=== PATIENT | female | born 1980 | race Caucasian/White ===

== ENCOUNTER 2024-07-31 11:46 | Outpatient (CLI) | payer BC, SELFPAY ==
--- NOTE | ~2024-07-31 | XR_ITS ---
Supine and upright views of the abdomen Clinical history: Renal stones Findings: Bowel gas pattern is nonspecific. No evidence for obstruction or free air. Probable left re nal stones present measuring up to 7 mm. Probable right renal stones measuring up to [address] ructures are intact. Impression: Bilateral nephrolithiasis, as detailed above. Reviewed, dictated and finalized at location . Impression: Bilateral nephrolithiasis, as detailed above.
== END 2024-07-31 11:47 | disposition home or self-care (01) ==
LOC: ANHIMG 11:55
PROVIDERS: Visit Provider Physician Assistant
DX: N20.0 Calculus of kidney (principal)
CPT/HCPCS: 74018

== ENCOUNTER 2024-09-27 13:34 | Outpatient (CLI) | payer BC, SELFPAY ==
[2024-09-27 14:40] LABS: Prothrombin Time 13.9 Seconds (11.1-14.7)
== END 2024-09-27 13:35 | disposition home or self-care (01) ==
PROVIDERS: Visit Provider Urology
DX: N20.0 Calculus of kidney (principal); Z01.818 Encounter for other preprocedural examination
CPT/HCPCS: 36415; 85610; 85730; 87077; 87086; 87186

== ENCOUNTER 2024-10-06 00:26 | Day surgery (SDC) | payer BC, SELFPAY ==
--- NOTE | 2024-09-26 13:20 | PC.NURSE ---
Report to the Outpatient Waiting Room, entrance under the green pavilion located off [facility], at time _0630_ on date _[id number]_. Planned Procedure Time: _0830_.? Time changes happen often and if your time is changed the preop area will call you the afternoon before. - You and your visitor will be asked to self-screen and do not enter if you have any COVID symptoms. Please call surgeon if you need to reschedule. - A mask is optional within the hospital at this time. Patients may have clear liquids (water, carbonated beverages, clear teas, apple juice) until 3 hours prior to surgery with a maximum of 20 ounces. - No food from midnight until time of surgery and no smoking. This includes no chewing gum, candy or mints. Take only the following medications with a SIP of water on the morning of surgery: ___None DO NOT STOP ANY OF YOUR OTHER PRESCRIPTION MEDICATIONS PRIOR TO SURGERY EXCEPT THE FOLLOWING Medications to discontinue per physician Vitamins and supplements Date to take last ozva____[id number] Please no make-up, nail chadian, hairspray, perfume, deodorant, or body powder the day of surgery.? No jewelry (including any body piercings) or valuables the day of surgery, leave them at home.? Please take a shower or bath the night before, or the morning of, surgery with an antibacterial soap.? Wear comfortable, loose fitting clothing.? - Jewelry must be removed prior to entering the operating room.? Rings and piercings that are not removed may be cut off. - The hospital will not accept responsibility for valuables.? - Please leave all valuables, including medications, at home the day of surgery. If you are going home after surgery, a licensed school bus driver must drive you home.? - NO public transportation without another adult if you receive anesthesia. - We recommend that an adult stay with you for 24 hours following discharge. - We also recommend that you do not drive, make important decision, drink alcoholic beverages, or take any drugs that were not prescribed by your health care provider for at least 24 hours after your discharge time. Follow any additional instructions given to you from your surgeon. Telephone instructions given to _Ibeth__and asked if any additional questions and then verbalized understanding. Patient advised to call surgeon office or pre surgery nurse liaison [phone] if any additional questions.
--- NOTE | 2024-09-28 16:54 | PM.HPGS ---
History of Present Illness History of Present Illness Consent: Risks, benefits, and alternatives have been discussed and questions answered. Patient agrees to proceed with procedure. Chief complaint: Left Renal Stone Narrative: Ibeth Mera is a 43 year old female who recently saw our nurse practitioner, Dorcas Roche, for recurrent urinary tract infection. She also has a history of recurrent urolithiasis and has had a metabolic evaluation by a drawing in machine tender helper in the past. During the course of evaluation renal ultrasound suggested bilateral stones. KUB showed a 7 mm stone in her left kidney in 3 mm stone in her right kidney. After discussion of options she is elected for right ESWL. After discussion he elects for left ESWL. Patient is aware of the risks including, but not limited to, adverse cardiopulmonary events, need for additional procedures, hematuria perinephric hematoma. Review of Systems Review of Systems: All systems reviewed & are unremarkable except as noted in HPI and below PMFSH Social History Social History Years smoked: 18 Smoking status: Former smoker Tobacco type: cigarettes Smoking end date: 09/26/18 Substance use type: marijuana Other substance usage details: THC inessa Living arrangements: with family Spiritual care concerns: No Meds Home Medications and Allergies Home Medications ?Medication ?Instructions ?Recorded ?Confirmed ?Type cholecalciferol (vitamin D3) 50 4,000 unit PO Q48H 09/26/24 09/26/24 History mcg (2,000 unit) capsule cyanocobalamin (vitamin B-12) 1,000 mcg PO DAILY 09/26/24 09/26/24 History 1,000 mcg capsule magnesium citrate 5 ml PO DAILY 09/26/24 09/26/24 History mushroom complex 1 cap PO DAILY 09/26/24 09/26/24 History omega-3 fatty acids 1,500 mg PO DAILY 09/26/24 09/26/24 History Allergies Allergy/AdvReac Type Severity Reaction Status Date / Time neomycin Allergy Severe Rash Verified 09/26/24 13:04 cortisone Allergy Mild Other Verified 09/26/24 13:04 Exam Const: General: no acute distress Resp: Effort & Inspection: normal respiratory effort GI: Inspection: non-distended GI Palp: No abdominal tenderness and No Guarding due to palpation present (GI) Auscultation: normal bowel sounds Assessment and Plan Assessment and plan (1) Bilateral kidney stones: Code(s): N20.0 - Calculus of kidney Status: Acute Assessment and Plan: Left ESWL
[2024-10-06] VITALS (9 sets, daily range): BP systolic 92–118; BP diastolic 47–79; PULSE 61–75; RESP 12–18; TEMP 36.4–36.8; O2SAT 98–100; BMI 20.7
--- NOTE | ~2024-10-06 | XR_ITS ---
EXAMINATION: XR abdomen/kub 1V DATE: 10/06/2024 06:57 INDICATION: Left kidney stone. TECHNIQUE: A supine view of the abdomen on 2 radiographs was obtained. COMPARISON: Abdomen radiographs 07/31/2024 FINDINGS: There are no dilated loops of bowel. There is a moderate volume of stool in the colon. Ther e are multiple stones in right kidney measuring up to 4 mm. There are multiple stones in left kidney measuring up to 9 mm. IMPRESSION: 1. Bilateral kidney stones. Reviewed, dictated and finalized at location A. ER IMPRESSION: 1. Bilateral kidney stones.
--- NOTE | 2024-10-06 06:23 | WPDHPUPDATE1 ---
History and Physical Update Update Date/Time: 10/06/24 06:23 History and Physical has been reviewed, including an updated exam of the patient. There are NO changes in the patient's condition. Risks, benefits, and alternatives have been discussed and questions answered. Patient agrees to proceed with procedure.
[2024-10-06] MEDS: LACTATED RINGERS 1,000 ML 30 ML IV CONT (07:05)
--- NOTE | 2024-10-06 08:10 | P.PNAN_ITS ---
Anes - Initial Pre Proc Eval Procedure: Operation Date: 10/06/24 08:30 Proposed Procedures p Left Extracorporeal Shock Wave Lithotripsy - Alfred Ayala MD s Cystoscopy with Possible Left Stent Placement - Alfred Ayala MD Date/Time: 10/06/24 08:10 Surgeon: Alfred Ayala MD Pre Op Diagnosis: Left Renal Stone Patient Data Age: 43 Gender: F Height: 1.65 m Weight: 56.4 kg Last Vital Signs Temp 98.2 F 10/06/24 06:55 Pulse 61 10/06/24 06:55 Resp 18 10/06/24 06:55 BP 118/73 10/06/24 06:55 Pulse Ox 100 10/06/24 06:55 O2 Del Method Room Air 10/06/24 06:55 Allergies Allergy/AdvReac Type Severity Reaction Status Date / Time neomycin Allergy Severe Rash Verified 10/06/24 07:21 cortisone Allergy Mild Other Verified 10/06/24 07:21 Home Medications ?Medication ?Instructions ?Recorded ?Confirmed ?Type cholecalciferol (vitamin D3) 50 4,000 unit PO Q48H 09/26/24 10/06/24 History mcg (2,000 unit) capsule cyanocobalamin (vitamin B-12) 1,000 mcg PO DAILY 09/26/24 10/06/24 History 1,000 mcg capsule magnesium citrate 5 ml PO DAILY 09/26/24 10/06/24 History mushroom complex 1 cap PO DAILY 09/26/24 10/06/24 History omega-3 fatty acids 1,500 mg PO DAILY 09/26/24 10/06/24 History Patient hx anesthesia problems: none Family hx anesthesia problems: none Results Review: All pre-operative results and documents have been reviewed as part of the pre- operative evaluation. [facility] Social History Social History Years smoked: 18 Smoking status: Former smoker Tobacco type: cigarettes Smoking end date: 09/26/18 Substance use type: marijuana Other substance usage details: THC gummies Living arrangements: with family Spiritual care concerns: No Anes - Eval Final PreProcedure Day of Procedure 10/06/24 08:10 Patient weight: normal Heart: regular rate and rhythm Lungs: clear to auscultation Airway: Mallampati scale Neurological: alert and oriented Last oral intake: >/= 8 hours ASA classification: II Emergent: no Anesthetic plan: proceed Anesthesia type and monitoring: general LMA and standard monitoring Results Review: All pre-operative results and documents have been reviewed as part of the pre- operative evaluation. Pt smokes marijuana several times/week, none this am. Informed Consent: The patient's anesthetic plan and its attendant risks and benefits were discussed with the patient/family/POA. Questions were solicited and answers provided to the satisfaction of the patient/family/POA.
[2024-10-06] MEDS: ceFAZolin 2 GM/D5W 50 ML 2 GM/50 ML BAG IVPB (08:22)
--- NOTE | 2024-10-06 08:46 | W.PM.PROC2 ---
Procedure Note - Detailed Date of Procedure 10/06/24 Pre-op Diagnosis Left Renal Stone Post-op Diagnosis Same Procedure Performed Left ESWL Surgeon Alfred Ayala MD Anesthesia General Description of Procedure The patient was brought to the operative suite where she was placed in the supine position on the Dornier lithotripsy table. The focal point of the lithotripter was placed at a 9mm left lower pole calculus. A total of 2500 shocks were delivered at a power setting of 4. There appeared to be good fragmentation of the stone. The patient tolerated the procedure well and was taken to the recovery room in good condition. Drains No Packing No Pathology None sent Complications No immediate complications Condition Stable
[2024-10-06] MEDS: fentaNYL CITRATE INJ (*CRX) 100 MCG/2 ML VIAL 25 MCG IV PUSH ×4 (09:18→09:28)
[2024-10-06] MEDS: oxyCODONE HCL (*CRX) 5 MG TAB IR PO (10:01)
--- OUTSIDE RECORDS SUMMARY | 2024-10-13 01:30 | XMS_ITS | Encounter Summary ---
Author Organization [facility] Address [address] [place] [id number] Phone Care Team Providers Care Pomologist Name Role Phone Melissa Melgar Primary Care Provider [phone] Encounter Details Date Type Department Care Team (Latest Contact Info) Description 09/22/2023 11:20 AM LIVESTOCK NUTRITIONIST Office Visit [facility] [address] [place], [place] [id number] Reynaldo Verduzco PA [address] [place] [address] Nephrolithiasis (Primary Dx); Hypercalciuria Social History Tobacco Use Types Packs/Day Years Used Date Smoking Tobacco: Never Assessed Sex and Gender Information Value Date Recorded Sex Assigned at Not on file Gender Identity Not on file Sexual Orientation Not on file documented as of this encounter Last Filed Vital Signs Vital Sign Reading Time Taken Comments Blood Pressure 110/60 09/22/2023 11:37 AM LIVESTOCK NUTRITIONIST Pulse - - Temperature - - Respiratory Rate - - Oxygen Saturation - - Inhaled Oxygen Concentration - - Weight 54.9 kg (121 lb) 09/22/2023 11:37 AM LIVESTOCK NUTRITIONIST Height - - Body Mass Index - - documented in this encounter Patient Instructions * Patient Instructions* ITA Dyson - 09/22/2023 11:20 AM LIVESTOCK NUTRITIONIST -Try and increase hydration to around 2.5-3.0L. You can try measuring your fluid intake to get an accurate assessment using a water bottle with measurements on it -Two servings of dairy (around 1000mg of calcium) daily. Avoid calcium supplements, Vitamin C supplements, and multivitamins -Lower the protein intake - goal protein is around 50g daily based on your weight -Low sodium diet - goal is around <2000mg total sodium daily -Can continue citrate therapy as well as lemonade, lemon juice with fluids to help add citrate (stone inhibitor) to your urine -Can consider thiazide medication for stone prevention in the future if blood pressure allows -Oxalate looks okay in your urine right now. Try and limit oxalate intake in the future if urine oxalate rises. documented in this encounter Progress Notes * ITA Dyson - 09/22/2023 11:20 AM CST Images from the original note were not included. Nephrology Ibeth Mear - 1980 Primary - MELISSA MELGAR History and interval events: Ibeth Mera presents for workup and management of nephrolithiasis. The patient follows with as their Urologist. Stone composition is unknown but presumably calcium based. She thinks her first kidney stone was probably around 2010. After that, her stone disease was quiescent until 2021 in May and then another in October 2022 that she passed. Previously did not drink much water in years prior but is working to increase water intake now. Hasbeen having recurrent UTI, about three in the last 6 or so months. Has been adding citrate in her diet and some sort of lemon products every day. Eats a high sodium diet, adds salt to her foods and eats salty foods. Eats yogurt often, cheese as well. Does not drink a lot of milk. No calcium supplements. Takes Vitamin D3 2000 units each morning. No MVI. No Vitamin C supplements. Eats a high oxalate diet as well. Lots of dark leafy greens, spinach, broccoli, nuts. Eats a high protein diet, a lot of red meat, chicken, pork, shrimp. 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 No history of gout. No chronic diarrhea/Crohn's/UC. No history of bowel resections/gastric bypass/weight loss surgery Past History: Medical Nephrolithiasis Recurrent UTI Surgical None Family Father with kidney stones Social Tobacco: vapes Alcohol: 6 years sober Recreational drugs: none Review of Systems Medications: Current Outpatient Medications on File Prior to Visit Medication Sig Dispense Refill buPROPion XL (WELLBUTRIN XL) 150 MG 24 hr tablet Take 150 mg by mouth 1 (one) time each day cholecalciferol (VITAMIN D-3) 25 MCG (1000 UT) tablet Take 2,000 Units by mouth in the morning. Cyanocobalamin ER 1000 MCG tablet controlled-release Take 1,000 mcg by mouth in the morning. Magnesium Citrate 125 MG capsule Take 500 mg by mouth 1 (one) time each day [place] 3 1000 MG capsule Take 1 capsule by mouth 1 (one) time each day vilazodone (VIIBRYD) 10 mg tablet tablet Take 10 mg by mouth 1 (one) time each day (Patient not taking: Reported on 09/22/2023) No current facility-administered medications on file prior to visit. Vital Signs: BP 110/60 Physical Exam: General No apparent distress H&N No JVD noted Eyes Equal, without icterus Chest No SOB, normal resp effort Heart Reg Abdomen Does not appear distended Extremities No LE edema noted Skin No visible rash on exposed skin Neuro No obvious new deficits. No tremor Mental status Alert and oriented Labs: SCr 21/0.7 eGFR 111 Na 140 K 4.2 CO2 25 Ca 9.0 PO4 3.3 Mg 2.0 Alb 3.9 iPTH 47 Vit D (25-OH) Hb 12.3 Tsat Ferritin urinalysis UP:C UACR Uric acid 3.2 Imaging: XR KUB 08/10/23: There are calcifications projecting over the right renal shadow, at least 4. The largest measures 3 mm. Larger calcifications project over the left kidney measuring up to 5 mm. No calcifications over the paths of the ureters. Impression and Recommendations: Ibeth presents for workup and management of nephrolithiasis. Stone composition is not definitively known but based on XR KUB and Litholink risk factors, presumably calcium based. 1.) Nephrolithiasis: Litholink notable for inadequate urine volume, hypercalciuria, hyperuricosuria, slightly elevated urine pH, elevated urine sodium, and high protein diet. Metabolic workup normal with unremarkable PTH, uric acid, and CMP. The following recommendations were made: Fluid intake around 90-100 ounces daily Two servings of dairy (around 1000mg calcium daily) with avoiding MVI Moderation of oxalate in her diet (oxalate currently looks okay but does eat a high oxalate diet). Avoid Vitamin C supplements. Reduce protein/red meat intake, goal ~0.8g/kg/day. This should help lower urine calcium, urine uricacid Low sodium diet <2000mg daily Lemonade, lemon juice (up to 4 ounces daily) to help urine citrate - currently adequate Discussed possible consideration of thiazide to help with urine calcium, but currently has modifiable lifestyle options that we will try first. May not be able to tolerate thiazide as BP already on lower side Consider allopurinol for hyperuricosuria as this can also reduce risk of calcium based stones Continued follow-up with Urology for stone surveillance, procedural management Follow-up in 4 months with repeat Litholink. Update 25-OH Vitamin D level ITA Dyson [facility]: MD Maria C Flores PA Graeme Mindel, MD Justin Krafft, PA Derek Larson, MD FASN Rose Mattli, NP Rohan Devanpalli, MD Candace Shirley, NP [address] [place], [place] [id number] [phone] Office [phone] - Fax documented in this encounter Plan of Treatment Upcoming Encounters Date Type Department Care Team (Late st Contact Info) Description 05/09/2025 11:40 AM CDT Office Visit [facility] [address] [place] [address] Marcell Adams MD [address] [place] [address] documented as of this encounter Visit Diagnoses Diagnosis Nephrolithiasis- Primary Hypercalciuria documented in this encounter Care Teams Pomologist Relationship Specialty Start Date End Date SethMelissa [address] [place] [address] PCP - General 09/22/23 documented as of this encounter
--- OUTSIDE RECORDS SUMMARY | 2024-10-13 01:30 | XMS_ITS | Clinical Summary ---
Author Organization [facility] Address [address] [place] [address] Phone Care Team Providers Care Quality Control Microbiology Supervisor Name Role Phone KIERSTEN INTERNAL SPECIALIST-C, DEA Ayon Unavailable [phone] JEREMY ANTONIO EDILIA BC, PATTI Corrigan Unavailable [phone] MELISSA MELGAR MD Primary Care Provider [phone] LIA SMITH LCSW Unavailable [phone] Reason for Visit and Chief Complaint referred by, visit for: Follow up visit 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 INTERNAL SPECIALIST-C Active Last Documented On 06/24/2022 9:39AM ; [facility] Note: diagnosed by Psychiatrist Joint Pain Fingers of Right Hand 05/19/2022 RADHA Aguilera Active Last Documented On 2 11:24AM ; [facility] Nephrolithiasis 05/14/2021 DEA BURCH F SWIMMING POOL INSTALLER-C Active Last Documented On 1 11:08AM ; [facility] Major Depression Recurrent Mild 05/14/2021 CESARIO BURCH INTERNAL SPECIALIST-C Active Last Documented On 1 10:56AM ; [facility] Vitamin D Deficiency 05/14/2021 DEA CAMPBELL ERS INTERNAL SPECIALIST-C Active Last Documented On 1 11:16AM ; [facility] Plan of Treatment Client will continue to monitor thoughts, feelings, and triggers, utilizing coping skills and resources as needed. - Last Documented On 09/07/2023 11:35AM ; [facility] Assessments Includes: Assessments from this encounter Findings - Depression with anxiety - Last Documented On 09/07/2023 11:35AM ; [facility] Medical Equipment - Implanted Devices Includes: Current Devices No Medical Equipment Recorded Medications Includes: Medications discussed during this encounter and other current Medications Current Medications (continue as prescribed) Vilazodone HCl 10 MG Oral Tablet 12/02/2023 Provider: DEA MELO Diagnosis: Major depressive disorder, recurrent, mild TAKE 1 TABLET BY MOUTH DAILY Last Documented On 4 11:39AM By Dea MELO ; [facility] Fountain 3 1000 MG Oral Capsule 09/06/2023 Provider: Diagnosis: 2 dailyOTC Last Documented On 3 9:21AM By Dea MELO ; [facility] Vitamin B12 1000 MCG Oral Tablet Extended Release 08/12 Provider: Diagnosis: OTC Last Documented On 3 9:22AM By Dea MELO ; [facility] Magnesium Citrate 125 MG Oral Capsule 09/06/2023 Pro vider: Diagnosis: takes 500mg dailyOTC Last Documented On 3 9:22AM By Dea MELO ; [facility] Vitamin D 25 MCG (1000 UT) Oral Tablet 06/24/2022 Pr ovider: Diagnosis: Last Documented On 06/24/2022 9:07AM By Carmela PHILLIPS ; [facility] Past Medications on file Oseltamivir Phosphate 75 MG Oral Capsule 10/14/2023 - 10/19/2023 Provider: NIVIA EPPS DNP Diagnosis: Acute upper respiratory infection, unspecified 1 CAPSULE TWO TIMES A DAY Last Documented On 4 11:15AM By Nivia Epps DNP ; [facility] Benzonatate 200 MG Oral Capsule 10/14/2023 - 10/21/2023 Provider: NIVIA DOHERTY DNP Diagnosis: Acute cough One tablet three times a day PRN for cough Last Documented On 4 11:15AM By Nivia Epps DNP ; [facility] Medications Administered Includes: Administered Medications from this encounter No Administered Medications Recorded Results Includes: Results discussed during this encounter No Results Recorded For Specified Dates History of Present Illness Includes: History of Present Illness from this encounter AMINA BARRIOS is a 42 year old female. - Primary Care Provider: Social History No Social History Recorded - Smoking Status Unknown Medical History Includes: Medical History addressed during this encounter No Medical History Recorded Family History Includes: Family History addressed during this encounter Description Last Updated Family history unchanged 05/22/2022 Last Documented On 3 10:46AM ; [facility] Maternal history of diabetes mellitus Last Documented On 3 10:46AM ; [facility] Paternal history of cancer 06/10/2021 Last Documented On 3 10:46AM ; [facility] Paternal history of depression 1 Last Documented On 3 10:46AM ; [facility] Maternal history of Blood Transfusions 0 06/10/2021 Last Documented On 3 10:46AM ; [facility] Family history reviewed - unchanged sinc e last visit 05/14/2021 Last Documented On 3 10:46AM ; [facility] Paternal history of drug dependence 01/2021 Last Documented On 3 10:46AM ; [facility] Review of Systems Includes: Review of Systems from this encounter No Review of Systems Recorded Mental Status Includes: Mental Status from this encounter Description [Other specified anxiety dis orders] depression with anxiety Functional Status Includes: Functional Status from this encounter No Functional Status Recorded Physical Exam Includes: Physical Exam from this encounter No Physical Exam Recorded Allergies Includes: Active Allergies Substance Type Reaction Onset Date Resolved Date Statu s Neomycin Allergy 05/14/2021 Active Last Documented On 4 10:54AM ; [facility] Corticosteroids Allergy 05/14/2021 Act roman Last Documented On 4 10:54AM ; [facility] Encounters Encounter Provider Location Date Check-In Time Check-Out Time Diagnosis [facility] 09/07/20 23 10:45AM 11:36AM Depression with Anxiety Insurance Includes: Active Insurance Policies Plan Name Member ID Group # Subscriber Relationship Effect roman Dates 1 - [facility] [id number] IBETH BARRIOS Self 04/10/2021 - Unknown Clinical Notes Includes: Clinical Notes from this encounter * Progress note Date Encounter Last Documented by 09/07/[address] [facility] Last documented on 09/07/2023; 11:35 AM, LIA SMITH LCSW; [facility] Active Problems & Conditions - Joint Pain Fingers of Right Hand - Major Depression Recurrent Mild - Nephrolithiasis - Obsessive Compulsive Personality Disorder - Vitamin D Deficiency Reason For Visit Visit for: Follow up visit. Referred by. Assessment - Depression with anxiety History of Present Illness IBETH BARRIOS is a 42 year old female. - Primary Care Provider: Current Medication - Magnesium Citrate 125 MG Oral Capsule takes 500mg dailyOTC, 0 days, 0 refills - Fountain 3 1000 MG Oral Capsule 2 dailyOTC, 0 days, 0 refills - Vilazodone HCl 10 MG Oral Tablet One tablet daily, 30 days, 2 refills - Vitamin B12 1000 MCG Oral Tablet Extended Release One tablet daily OTC, 0 days, 0 refills - Vitamin D 25 MCG (1000 UT) Oral Tablet One tablet daily 0 days, 0 refills Family History Family history reviewed - unchanged since last visit Family history unchanged Paternal: Drug dependence Depression Cancer Maternal: Blood Transfusions Diabetes mellitus Care Team - DIAMOND WASSERMAN-Ale - Primary Care - LIA SMITH LCSW - Counselor - PACO FONTAINENP - Obstetrics & Gynecology User Defined 31 Clinician provided active empathic listening, validation, clarification, and emotional support. User Defined 32 Ibeth shared spending Thanksgiving with herself, making breakfast and soup, watching the [place] Parade and football. It was nice to be home, not having any obligations. She became tearful when sharing she became emotional when watching the parade, due to missing her mom, who loved the parade. She indicated feeling very alone regarding not having any family she is really close with and can rely on. Ibeth shared waking up sad this morning and then noticing getting angry about little things throughout the morning. She is worried about her dog, Ronald, and feels anxious when he follows after her, shivering. I just wish he'd go lay on his blanket and get warm. Then her cat kept getting in the plant and making messes she had to clean up. She has been doing with fleas all summer from the neighbor's dog. She has been doing yoga every day, going to a chiropractor twice a week, exercising, cooking healthy foods at home, going to doctors' appointments she put off since meeting Annabelle. She is getting her kidneys check. On the other side of the relationship with Annabelle, Ibeth recognizes she tends to lose herself in relationships. She focuses on what they need in order to not abandon her. She feels uncomfortable when other people cry, and she feels uncomfortable expressing how she feels about people. I feel very closed off with people. I'm afraid of connection, in general. She shared having plans to go to a concert and her boss telling her she would have loved to go to that with her. This made her feel uncomfortable. User Defined 33 Ibeth was able to share thoughts, feelings and experiences while receiving unconditional positive regard, validation and emotional support from typewriter ribbon winder. Ibeth and discussed ways that she was expected to be the adult/ with her mother, growing up, and how that unfairness is triggered when people show emotions or want to connect with her on a personal basis. and Ibeth explored the idea of paying attention to how she feels around her boss and decide if she's someone with whom she feels would be worth being friends. Ibeth and talked about doing inner child work, connecting with the little girl inside, so she does not feel alone, and allowing herself to be vulnerable. Plan Client will continue to monitor thoughts, feelings, and triggers, utilizing coping skills and resources as needed. Bottom of Document Start time: 10:46 a.m. End time: 11:33 a.m. Next Appt for: 09/27 at 10:45
--- OUTSIDE RECORDS SUMMARY | 2024-10-13 01:30 | XMS_ITS | Clinical Summary ---
Author Organization [facility] Address [address] [place] [id number] Phone Care Team Providers Care Senior Web Designer Name Role Phone Erick Ann Primary Care Provider [phone] Allergies Active Allergy Reactions Criticality Noted Date Comments Corticosteroids Unknown 06/07/2023 Neomycin Unknown 05/14/2021 Medications Medication Sig Dispensed Refills Start Date End Date Status cholecalciferol (VITAMIN D-3) 25 MCG (1000 UT) tablet Take 2,000 Units by mouth in the morning. 06/24/2022 Active Cyanocobalamin ER 1000 MCG tablet controlled-release Take 1,000 mcg by mouth in the morning. 09/06/2023 Active Magnesium Citrate 125 MG capsule Take 500 mg by mouth 1 (one) time each day 09/06/2023 Active [place] 3 1000 MG capsule Take 1 capsule by mouth 1 (one) time each day 09/06/2023 Active vilazodone (VIIBRYD) 10 mg tablet tablet Take 10 mg by mouth 1 (one) time each day 09/06/2023 Active allopurinol (ZYLOPRIM) 100 MG tablet Take 1 tablet (100 mg total) by mouth 1 (one) time each day 30 tablet 11 05/09/2024 05/09/2025 Active Active Problems Problem Noted Date Diagnosed Date Nephrolithiasis 05/09/2024 Immunizations Name Administration Dates Next Due Pfizer Sars-cov-2 Vaccination 04/23/2021 Social History Tobacco Use Types Packs/Day Years Used Date Smoking Tobacco: Never Assessed Sex and Gender Information Value Date Recorded Sex Assigned at Not on file Gender Identity Not on file Sexual Orientation Not on file Last Filed Vital Signs Vital Sign Reading Time Taken Comments Blood Pressure 106/62 05/09/2024 12:57 PM CDT Pulse 69 05/09/2024 12:57 PM CDT Temperature - - Respiratory Rate - - Oxygen Saturation - - Inhaled Oxygen Concentration - - Weight 55.3 kg (122 lb) 05/09/2024 12:57 PM CDT Height 170.2 cm (5' 7 ) 05/09/2024 12:57 PM CDT Body Mass Index 19.11 05/09/2024 12:57 PM CDT Plan of Treatment Upcoming Encounters Date Type Department Care Team (Late st Contact Info) Description 05/09/2025 11:40 AM CDT Office Visit [facility] [address] [place] [address] Marcell Adams MD [address] [place] [address] Health Maintenance Due Date Last Done Comments Pneumococcal PPSV23 Highest Risk Adult (1 of 3 - PCV13) 2000 COVID-19 Vaccine (2 - 2022- season) 2024 Influenza Vaccine (#1) 2024 Care Teams Senior Web Designer Relationship Specialty Start Date End Date Erick Ann [address] [place] [address] PCP - General 09/22/23
--- OUTSIDE RECORDS SUMMARY | 2024-10-13 01:30 | XMS_ITS | Clinical Summary ---
Author Organization [facility] Address [address] [address] Phone Care Team Providers Care Court Monitor Name Role Phone KIERSTEN RESEARCH FOOD TECHNOLOGIST-C, DEA Ayon Unavailable [phone] JEREMY ANTONIO WHEDILIA BC, PATTI Corrigan Unavailable [phone] MELISSA MELGAR MD Primary Care Provider [phone] LIA SMITH LCSW Unavailable [phone] Reason for Visit and Chief Complaint The Chief Complaint is: cough, tickle in throat, head pressure, chest/lungs burning. sx started last night. 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 RESEARCH FOOD TECHNOLOGIST-C Active Last Documented On 06/24/2022 9:39AM ; [facility] Note: diagnosed by Psychiatrist Joint Pain Fingers of Right Hand 05/19/2022 RADHA Aguilera Active Last Documented On 2 11:24AM ; [facility] Nephrolithiasis 05/14/2021 DEA BURCH F MONUMENT STONECUTTER-C Active Last Documented On 1 11:08AM ; [facility] Major Depression Recurrent Mild 05/14/2021 CESARIO BURCH RESEARCH FOOD TECHNOLOGIST-C Active Last Documented On 1 10:56AM ; [facility] Vitamin D Deficiency 05/14/2021 DEA A CHILD ERS RESEARCH FOOD TECHNOLOGIST-C Active Last Documented On 1 11:16AM ; [facility] Plan of Treatment - Return to the clinic if condition worsens or new symptoms arise - Last Documented On 10/14/2023 11:08AM ; [facility] - Patient will call for appointment as needed - Last Documented On 10/14/2023 11:08AM ; [facility] Instructions to patient Intervention and counseling on cessation of tobacco use Last Documented On 4 10:54AM ; [facility] Assessments Includes: Assessments from this encounter Findings - [J06.9 - Acute upper respiratory infection, unspecified] Upper respiratory infection - Last Documented On 10/14/2023 11:08AM ; [facility] Instructions Includes: Instructions from this encounter Instructions to patient Intervention and counseling on cessation of tobacco use Last Documented On 4 10:54AM ; [facility] Medical Equipment - Implanted Devices Includes: Current Devices No Medical Equipment Recorded Medications Includes: Medications discussed during this encounter and other current Medications New / Renewed during this visit NIVIA EPPS DNP on 10/14/2023 Oseltamivir Phosphate 75 MG Oral Capsule Provider: NIVIA Payan NP 5 day supply: 10 capsule, 0 refills Diagnosis: Acute upper respiratory infection, unspecified 1 CAPSULE TWO TIMES A DAY Pharmacy: [address], [id number] - Last Documented On 4 11:15AM By Nivia Epps DNP ; [facility] Benzonatate 200 MG Oral Capsule Provider: NIVIA Payan NP 7 day supply: 21 capsule, 0 refills Diagnosis: Acute cough One tablet three times a day PRN for cough Pharmacy: [address], [id number] - Last Documented On 4 11:15AM By Nivia Epps DNP ; [facility] Current Medications (continue as prescribed) Vilazodone HCl 10 MG Oral Tablet 12/02/2023 Provider: DEA CAMPBELLERS RESEARCH FOOD TECHNOLOGIST-C Diagnosis: Major depressive disorder, recurrent, mild TAKE 1 TABLET BY MOUTH DAILY Last Documented On 4 11:39AM By Dea MELO ; [facility] [place] 3 1000 MG Oral Capsule 09/06/2023 Provider: Diagnosis: 2 dailyOTC Last Documented On 3 9:21AM By Dea MELO ; [facility] Vitamin B12 1000 MCG Oral Tablet Extended Release 08/12 Provider: Diagnosis: OTC Last Documented On 3 9:22AM By Dea MELO ; [facility] Magnesium Citrate 125 MG Oral Capsule 09/06/2023 Pro vider: Diagnosis: takes 500mg dailyOTC Last Documented On 3 9:22AM By Dea MELO ; [facility] Vitamin D 25 MCG (1000 UT) Oral Tablet 06/24/2022 Pr ovider: Diagnosis: Last Documented On 06/24/2022 9:07AM By Carmela PHILLIPS ; [facility] Medications Administered Includes: Administered Medications from this encounter No Administered Medications Recorded Vital Signs Includes: Vital Signs from this encounter Vital Name 10/14/2023 10:52A Blood Pressure Sitting (mmHg) 100/60 Pulse Rate-Sitting (bpm) 81 Temp-Oral (F) 99 Height (in) 66 Weight (lb) 120.2 Body Mass Index 19.4 Body Surface Area 1.6 Oxygen Saturation (%) 99 Last Documented: On 10/14/2023 10:54A M ; [facility] Results Includes: Results discussed during this encounter Influenza A/B [facility] Ordered by NIVIA EPPS DNP on 01/2024 Collected: Reported: 10/14/2023 10:55 Last Documented On 4 10:58AM ; [facility] Reviewed on 10/14/2023; All test results are final unless otherwise noted. Influenza A neg N (Normal) Last Documented On 4 10:58AM ; [facility] Influenza B neg N (Normal) Last Documented On 4 10:58AM ; [facility] INT. QC ACCEPTABLE? yes N (Normal) Last Documented On 4 10:58AM ; [facility] LOT # & EXP. DATE [id number] 09/09/24 N (Normal) Last Documented On 4 10:58AM ; [facility] History of Present Illness Includes: History of Present Illness from this encounter HPI IBETH BARRIOS is a 42 year old female. - Allergy list reviewed - Medication list reviewed - Previously well - No fever - No chills - Headache associated with head congestion - No sinus pain - No sinus pressure - No swollen glands in the neck - No itching of the eyes - No discharge from the eyes - The ears feel full - Nasal discharge - Nasal passage blockage (stuffiness) - Sore throat - No earache - The ears do not feel pressured - No discharge from the ears - No postnasal drip - No sneezing - No itchy throat - No chest pain or discomfort - No palpitations - Cough - Not feeling congested in the chest - No dyspnea - No wheezing - No rash Ibeth presents to the clinic with the above reported symptoms that she reports started last night. She denies any known fever or chills. Patient has been helping take care of a friend that tested positive for influenza yesterday. She reports that she is having the same symptoms as her friend and would like to be tested for influenza. Social History Description Last Updated Current smoker 10/14/2023 Last Documented On 4 11:08AM ; [facility] Smoking electronic cigarettes 10/14/2023 Last Documented On 4 11:08AM ; [facility] Smoking Status Unknown Procedures and Surgical History Includes: Procedures from this encounter Procedures Code Diagnosis Performing Provider Service L ocation Service Date INFLUENZA TEST A/B (CLIA WAIVED) 25056 Acute cough NIVIA EPPS [facility] 10/14/2023 Last Documented On 4 12:29PM ; [facility] intervention and counseling on cessation of toba accounts payable assistant use 4000F Last Documented On 4 10:54AM ; [facility] use of tobacco assessment performed 1000F Last Documented On 4 10:54AM ; [facility] review of medications documented 1160F Last Documented On 4 10:54AM ; [facility] Clinical summary provided to patient Last Documented On 4 11:03AM ; [facility] Medical History Includes: Medical History addressed during this encounter No Medical History Recorded Family History Includes: Family History addressed during this encounter No Family History Recorded Review of Systems Includes: Review of Systems from this encounter Systemic: Feeling poorly (malaise). No fever and no chills. Head: Headache. No sinus pain. Eyes: No itching of the eyes. Otolaryngeal: No earache. Nasal discharge. No hoarseness. Sore throat. Cardiovascular: No chest pain or discomfort. Pulmonary: No dyspnea. Cough. No wheezing. Skin: No rash. Mental Status Includes: Mental Status from this encounter No Mental Status Recorded Functional Status Includes: Functional Status from this encounter No Functional Status Recorded Physical Exam Includes: Physical Exam from this encounter Allergies Includes: Active Allergies Substance Type Reaction Onset Date Resolved Date Statu s Neomycin Allergy 05/14/2021 Active Last Documented On 4 10:54AM ; [facility] Corticosteroids Allergy 05/14/2021 Act roman Last Documented On 4 10:54AM ; [facility] Encounters Encounter Provider Location Date Check-In Time Check-Out Time Diagnosis COVID SICK VISIT- ESTABLISHED PATIENT NIVIA EPPS DNP [facility] 10/14/19 24 10:45AM 11:02AM Upper Respiratory Infection Insurance Includes: Active Insurance Policies Plan Name Member ID Group # Subscriber Relationship Effect roman Dates 1 - [facility] [id number] IBETH BARRIOS Self 04/10/2021 - Unknown Clinical Notes Includes: Clinical Notes from this encounter * Progress note Date Encounter Last Documented by 10/14/2023 COVID SICK VISIT- ESTABLISHED ITA LARSEN Last documented on 10/14/2023; 11:08 AM, NIVIA EPPS DNP; [facility] Chief Complaint The Chief Complaint is: Cough, tickle in throat, head pressure, chest/lungs burning. sx started last night. pt exposed to flu. History of Present Illness IBETH BARRIOS is a 42 year old female. - Allergy list reviewed - Medication list reviewed - Previously well - No fever - No chills - Headache associated with head congestion - No sinus pain - No sinus pressure - No swollen glands in the neck - No itching of the eyes - No discharge from the eyes - The ears feel full - Nasal discharge - Nasal passage blockage (stuffiness) - Sore throat - No earache - The ears do not feel pressured - No discharge from the ears - No postnasal drip - No sneezing - No itchy throat - No chest pain or discomfort - No palpitations - Cough - Not feeling congested in the chest - No dyspnea - No wheezing - No rash Ibeth presents to the clinic with the above reported symptoms that she reports started last night. She denies any known fever or chills. Patient has been helping take care of a friend that tested positive for influenza yesterday. She reports that she is having the same symptoms as her friend and would like to be tested for influenza. Social History Tobacco use: Smoking electronic cigarettes. Review Of Systems Systemic: Feeling poorly (malaise). No fever and no chills. Head: Headache. No sinus pain. Eyes: No itching of the eyes. Otolaryngeal: No earache. Nasal discharge. No hoarseness. Sore throat. Cardiovascular: No chest pain or discomfort. Pulmonary: No dyspnea. Cough. No wheezing. Skin: No rash. Physical Findings - Vitals taken 10/14/2023 10:52 am BP-Sitting 100/60 mmHg Pulse Rate-Sitting 81 bpm Temp-Oral 99 F Height 66 in Weight 120 lbs 3.2 oz Body Mass Index 19.4 kg/m2 Body Surface Area 1.6 m2 Oxygen Saturation 99 % General Appearance: - Alert. - Well nourished. - In no acute distress. Neck: Suppleness: - Neck demonstrated no decrease in suppleness. Eyes: General/bilateral: Pupils: - PERRLA. Ears: General/bilateral: External Auditory Canal: - External auditory meatus normal. Tympanic Membrane: - Normal. Nose: General/bilateral: Discharge: - Nasal discharge. Cavity: - Nasal turbinate swollen. Sinus Tenderness: - No sinus tenderness. Pharynx: Oropharynx: - Normal. - Tonsils showed no abnormalities. - Tonsils were not erythematous. - Tonsils were not enlarged. Mucosal: - Pharynx showed an accumulation of purulent mucous. Lymph Nodes: - Anterior cervical lymph nodes were not enlarged. - Posterior cervical lymph nodes were not enlarged. Lungs: - Normal breath sounds/voice sounds. - No wheezing was heard. - No rhonchi were heard. Cardiovascular: Heart Rate And Rhythm: - Normal. Skin: - General appearance was normal. - Texture was normal. - Turgor was normal. - Color and pigmentation were normal. - Moisture was normal. - Mucous membranes were not dry. Tests - Test: Influenza A/B Report Date: 10/14/2023 Influenza A neg Normal Influenza B neg Normal INT. QC ACCEPTABLE? yes Normal LOT # & EXP. DATE [id number] 09/09/24 Normal Assessment - [J06.9 - Acute upper respiratory infection, unspecified] Upper respiratory infection Therapy - Intervention and counseling on cessation of tobacco use. - Clinical summary provided to patient. Discussed Patient tested negative for influenza at today's visit. Suspect that the patient is actually positive and was too early to detect. Will treat accordingly. Tessalon perles PRN for cough. Tamiflu as directed to help with symptoms. 1. Increase fluid intake. 2. Rest as much as possible. 3. Encourage use of humidifier- Regularly clean the humidifier so that bacteria does not grow. 4. Encouraged Vitamin C and Zinc to help boost immune system. 5. Cool liquids to soothe the throat, throat sprays, throat lozenges, cool liquids to help soothe the throat. 6. Acetaminophen or ibuprofen as needed for pain/fever. 7. Antihistamine as needed- such as Zyrtec, Claritin, or Benadryl. 8. Normal saline nasal spray or Netti Pot with sterile water as needed. 9. Warm compress to sinus area. 10. Patient voiced understanding to the teaching. Plan StartCited - Acute cough In office procedures/*Clia Waived Labs: Influenza Test A/B Benzonatate 200 MG capsule One tablet three times a day PRN for cough, 7 days, 0 refills EndCited StartCited - Acute upper respiratory infection, unspecified Oseltamivir Phosphate 75 MG capsule 1 CAPSULE TWO TIMES A DAY, 5 days, 0 refills EndCited - Return to the clinic if condition worsens or new symptoms arise - Patient will call for appointment as needed Practice Management Use of tobacco assessment performed Review of medications documented.
--- OUTSIDE RECORDS SUMMARY | 2024-10-13 01:30 | XMS_ITS | Encounter Summary ---
Author Organization [facility] Address [address] [place] [id number] Phone Care Team Providers Care Processing Archivist Name Role Phone Erick Ann Primary Care Provider [phone] Encounter Details Date Type Department Care Team (Late st Contact Info) Description 12/16/2023 Orders Only [facility] [address] [place] [address] Tameka Miles MA Nephrolithiasis (Primary Dx) Social History Tobacco Use Types Packs/Day Years Used Date Smoking Tobacco: Never Assessed Sex and Gender Information Value Date Recorded Sex Assigned at Not on file Gender Identity Not on file Sexual Orientation Not on file documented as of this encounter Plan of Treatment Upcoming Encounters Date Type Department Care Team (Late st Contact Info) Description 05/09/2025 11:40 AM CDT Office Visit [facility] [address] [place] [address] Marcell Adams MD [address] [place] [address] documented as of this encounter Procedures Procedure Name Priority Date/Time Associated Diagnosis Comments LITHOLINK 24-HOUR URINE, [place] Routine 01/13/2024 6:15 AM CDT Nephrolithiasis documented in this encounter Results * (ABNORMAL) Litholink 24-Hour Urine Panel (01/13/2024 6:15 AM CDT) CYSTINE, URINE, QUALITATIVE CANCELED [facility] 1 Comment: Test not performed. Previous test results on file. Result canceled by the ancillary. Volume, 24-Hour Urine 3,820 500 - 4,000 mL/24 hr [facility] 1 Calcium oxalate index, 24 hour Urine 3.24(L) 6.00 - 10.00 [facility] 1 Calcium, 24 hour Urine 293(H) <200 mg/24 hr [facility] 1 Oxalate, 24 hour Urine 35 20 - 40 mg/24 hr [facility] 1 Citrate, 24 hour Urine 767 >550 mg/24 hr [facility] 1 CALCIUM PHOSPHATE SATURATION 1.40 0.50 - 2.00 [facility] 1 pH of 24 hour Urine 7.152(H) 5.800 - 6.200 [facility] 1 Urate, 24 hour Urine 0.04 <1.00 [facility] 1 Uric Acid (Urate), 24 Hour Urine 828(H) <750 mg/24 hr [facility] 1 Sodium, 24 hour Urine 197(H) 50 - 150 mmol/24 hr [facility] 1 Potassium, 24 hour Urine 49 20 - 100 mmol/24 hr [facility] 1 Magnesium, 24 hour Urine 171(H) 30 - 120 mg/24 hr [facility] 1 Phosphate, 24 hour Urine 768 600 - 1,200 mg/24 hr [facility] 1 AMMONIUM, URINE 25 15 - 60 mmol/24 hr [facility] 1 Chloride, 24 hour Urine 150 70 - 250 mmol/24 hr [facility] 1 Sulfate, 24 hour Urine 45 20 - 80 meq/24 hr [facility] 1 Urea nitrogen, 24 hour Urine (UUN) 11.10 6.00 - 14.00 g/24 hr [facility] 1 PROTEIN CATABOLIC RATE 1.5(H) 0.8 - 1.4 g/kg/24 hr [facility] 1 Creatinine, 24 hour Urine 1,261 Not Applic. mg/24 hr [facility] 1 CREATININE / KG BODY WEIGHT 23.2(H) 8.7 - 20.3 mg/24 hr/kg [facility] 1 Calcium/Kg Body Weight 5.4(H) <4.0 mg/24 hr/kg [facility] 1 RATIO CALCIUM TO CREATININE UA 232 51 - 262 mg/g creat [facility] 1 COMMENT Note [facility] 1 PDF . [facility] 1 01/13/2024 6:15 AM CDT 01/17/2024 11:00 PM CDT Narrative [facility] - 01/19/2024 3:08 AM CDT Performed at: ??01 - [facility] [address] ??[id number] Irrigator Valve Pipe: Moraima Olsen PhDDA, Phone: ??[phone] Marcell Navas MD LAB URINE ORD ERABLES [facility] 1 documented in this encounter Visit Diagnoses Diagnosis Nephrolithiasis- Primary documented in this encounter Care Teams Processing Archivist Relationship Specialty Start Date End Date Erick Ann [address] [place] [address] PCP - General 09/22/23 documented as of this encounter
--- OUTSIDE RECORDS SUMMARY | 2024-10-13 01:30 | XMS_ITS | Patient Health Summary ---
Author Organization [facility] Address [address] [place] [address] Care Team Providers Care Recording Clerk Name Role Phone Unavailable Primary Care Provider Unavailabl e Note from [facility],non-owned Affiliates and Associated Physician Practices is amultiple site organization consisting of ambulatory clinics and hospital sitesin [place], [place], [place] and [place]. This disclosure is being madepursuant to the Care Everywhere program and may not contain all information available regarding this patient. Last updated 18.[facility] Social History Tobacco Use Types Packs/Day Years Used Date Smoking Tobacco: Never Assessed Sex and Gender Information Value Date Recorded Sex Assigned at Not on file Gender Identity Not on file Sexual Orientation Not on file
--- OUTSIDE RECORDS SUMMARY | 2024-10-13 01:30 | XMS_ITS | Clinical Summary ---
Author Organization [facility] Address [address] [place] [address] Phone Care Team Providers Care Chandelier Maker Name Role Phone KIERSTEN LOCK TENDER CHIEF OPERATOR-C, DEA Ayon Unavailable [phone] JEREMY ANTONIO EDILIA BC, PATTI Corrigan Unavailable [phone] MELISSA MELGAR MD Primary Care Provider [phone] LIA SMITH LCSW Unavailable [phone] Reason for Visit and Chief Complaint referred by, visit for: Follow up visit 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 LOCK TENDER CHIEF OPERATOR-C Active Last Documented On 06/24/2022 9:39AM ; [facility] Note: diagnosed by Psychiatrist Joint Pain Fingers of Right Hand 05/19/2022 RADHA Aguilera Active Last Documented On 2 11:24AM ; [facility] Nephrolithiasis 05/14/2021 DEA BURCH F DRIER TRANSFER CAR OPERATOR-C Active Last Documented On 1 11:08AM ; [facility] Major Depression Recurrent Mild 05/14/2021 CESARIO BURCH LOCK TENDER CHIEF OPERATOR-C Active Last Documented On 1 10:56AM ; [facility] Vitamin D Deficiency 05/14/2021 DEA CAMPBELL ERS LOCK TENDER CHIEF OPERATOR-C Active Last Documented On 1 11:16AM ; [facility] Plan of Treatment Client will continue to monitor thoughts, feelings, and triggers, utilizing coping skills and resources as needed. - Last Documented On 10/08/2023 10:01AM ; [facility] Assessments Includes: Assessments from this encounter Findings - Depression with anxiety - Last Documented On 10/08/2023 10:01AM ; [facility] Medical Equipment - Implanted Devices Includes: Current Devices No Medical Equipment Recorded Medications Includes: Medications discussed during this encounter and other current Medications Current Medications (continue as prescribed) Vilazodone HCl 10 MG Oral Tablet 12/02/2023 Provider: DEA MELO Diagnosis: Major depressive disorder, recurrent, mild TAKE 1 TABLET BY MOUTH DAILY Last Documented On 4 11:39AM By Dea MELO ; [facility] [place] 3 1000 MG Oral Capsule 09/06/2023 Provider: Diagnosis: 2 dailyOTC Last Documented On 3 9:21AM By Dea MELO ; [facility] Vitamin B12 1000 MCG Oral Tablet Extended Release 08/12 Provider: Diagnosis: OTC Last Documented On 3 9:22AM By Dea MELO ; [facility] Magnesium Citrate 125 MG Oral Capsule 09/06/2023 Pro vider: Diagnosis: takes 500mg dailyOTC Last Documented On 3 9:22AM By eDa MELO ; [facility] Vitamin D 25 MCG (1000 UT) Oral Tablet 06/24/2022 Pr ovider: Diagnosis: Last Documented On 06/24/2022 9:07AM By Carmela PHILLIPS ; [facility] Past Medications on file Oseltamivir Phosphate 75 MG Oral Capsule 10/14/2023 - 10/19/2023 Provider: INVIA EPPS DNP Diagnosis: Acute upper respiratory infection, unspecified 1 CAPSULE TWO TIMES A DAY Last Documented On 4 11:15AM By Nivia Epps DNP ; [facility] Benzonatate 200 MG Oral Capsule 10/14/2023 - 10/21/2023 Provider: NIVIA DOHERTY DNP Diagnosis: Acute cough One tablet three times a day PRN for cough Last Documented On 4 11:15AM By Nivia Epps DNP ; [facility] Medications Administered Includes: Administered Medications from this [...] history unchanged 05/22/2022 Last Documented On 3 9:16AM ; [facility] Maternal history of diabetes mellitus Last Documented On 3 9:16AM ; [facility] Paternal history of cancer 06/10/2021 Last Documented On 3 9:16AM ; [facility] Paternal history of depression 1 Last Documented On 3 9:16AM ; [facility] Maternal history of Blood Transfusions 0 06/10/2021 Last Documented On 3 9:16AM ; [facility] Family history reviewed - unchanged sinc e last visit 05/14/2021 Last Documented On 3 9:16AM ; [facility] Paternal history of drug dependence 01/2021 Last Documented On 3 9:16AM ; [facility] Review of Systems Includes: Review of Systems [...] Active Last Documented On 4 10:54AM ; [facility] Corticosteroids Allergy 05/14/2021 Act roman Last Documented On 4 10:54AM ; [facility] Encounters Encounter Provider Location Date Check-In Time Check-Out Time Diagnosis [facility] 10/08/20 23 9:15AM 10:02AM Depression with Anxiety Insurance Includes: Active Insurance Policies Plan Name Member ID Group # Subscriber Relationship Effect roman Dates 1 - [facility] [id number] IBETH BARRIOS Self 04/10/2021 - Unknown Clinical Notes Includes: Clinical Notes from this encounter * Progress note Date Encounter Last Documented by 10/08/2023 [facility] Last documented on 10/08/2023; 10:01 AM, LIA SMITH LCSW; [facility] Active Problems & Conditions [...] 500mg dailyOTC, 0 days, 0 refills - [place] 3 1000 MG Oral Capsule 2 dailyOTC, [...] Blood Transfusions Diabetes mellitus Care Team - KAMERON WASSERMAN - Primary Care - LIA SMITH LCSW - Counselor - PACO FONTAINENP - Obstetrics & Gynecology User Defined 31 Clinician provided active empathic listening, validation, clarification, and emotional support. User Defined 32 Ibeth shared working this coming weekend and no longer working at [employer] due to their closing for two months. She is wanting to volunteer at the animal sanctuary, as this is something she's wanted to do for a while and now has the time. Ibeth shared feeling hurt when her dad was on Facetime with her, picking at parts of her appearance. Then she mentioned a co-worker she feels is overly sensitive that she was joshing with and now feels guilty for comments she made. She indicated experiencing unconditional love with her dog and cat, and feeling she struggles with people due to feeling unlovable and seeing their words and actions as evidence of her being unlovable. User Defined 33 Ibeth was able to share thoughts, feelings and experiences while receiving unconditional positive regard, validation and emotional support from freelance writer. Medical Affairs Manager and Ibeth explored the idea that practicing self-love with help her be less responsive to the words and actions of others. Ibeth was able to identify growing up feeling she had no control over her outside world, which resulted in created a sense of security by having things organized and a certain way. Plan Client will continue to monitor thoughts, feelings, and triggers, utilizing coping skills and resources as needed. Bottom of Document Start time: 9:16 a.m. End time: 9:59 a.m. Next Appt for:
--- OUTSIDE RECORDS SUMMARY | 2024-10-13 01:30 | XMS_ITS | Referral Summary ---
Author Organization [facility] Address [address] [place] [address] Care Team Providers Care Consulting Nurse Name Role Phone Unavailable Primary Care Provider Unavailabl e Source Comments [facility],non-owned Affiliates and Associated Physician Practices is amultiple site organization consisting of ambulatory clinics and hospital sitesin [place], [place], [place] and [place]. This disclosure is being madepursuant to the Care Everywhere program and may not contain all information available regarding this patient. Last updated 18.[facility] Encounters Date Type Department Care Team Description 09/25/2024 Telephone [facility] - Family Medicine [address] [place] [address] Ysabel Carson MD Referral from Last 3 Months Social History Tobacco Use Types Packs/Day Years Used Date Smoking Tobacco: Never Assessed Sex and Gender Information Value Date Recorded Sex Assigned at Not on file Gender Identity Not on file Sexual Orientation Not on file Plan of Treatment Not on file
--- OUTSIDE RECORDS SUMMARY | 2024-10-13 01:30 | XMS_ITS | Encounter Summary ---
Author Organization [facility] Address [address] [place] [id number] Phone Care Team Providers Care Foxing Painter Name Role Phone Unavailable Primary Care Provider Unavailabl e Encounter Details Date Type Department Care Team (Late st Contact Info) Description 08/25/2023 Orders Only [facility] [address] [place] [address] Reynaldo Verduzco PA [address] [place] [address] Nephrolithiasis (Primary Dx) Social History Tobacco Use Types Packs/Day Years Used Date Smoking Tobacco: Never Assessed Sex and Gender Information Value Date Recorded Sex Assigned at Not on file Gender Identity Not on file Sexual Orientation Not on file documented as of this encounter Plan of Treatment Upcoming Encounters Date Type Department Care Team (Late Contact Info) Description 05/09/2025 11:40 AM CDT Office Visit [facility] [address] [place] [address] Marcell Adams MD [address] [place] [address] documented as of this encounter Procedures Procedure Name Priority Date/Time Associated Diagnosis Comments LITHOLINK 24-HOUR URINE, [place] Routine 09/11/2023 8:00 AM RECREATIONAL LEADER Nephrolithiasis documented in this encounter Results * (ABNORMAL) Litholink 24-Hour Urine, [place] (09/11/2023 8:00 AM RECREATIONAL LEADER) CYSTINE, URINE, QUALITATIVE Neg Negative [facility] 1 Volume, 24-Hour Urine 1,800 500 - 4,000 mL/24 hr [facility] 1 Calcium oxalate index, 24 hour Urine 5.30(L) 6.00 - 10.00 [facility] 1 Calcium, 24 hour Urine 307(H) <200 mg/24 hr [facility] 1 Oxalate, 24 hour Urine 24 20 - 40 mg/24 hr [facility] 1 Citrate, 24 hour Urine 645 >550 mg/24 hr [facility] 1 CALCIUM PHOSPHATE SATURATION 2.81(H) 0.50 - 2.00 [facility] 1 pH of 24 hour Urine 6.527(H) 5.800 - 6.200 [facility] 1 Urate, 24 hour Urine 0.33 <1.00 [facility] 1 Uric Acid (Urate), 24 Hour Urine 882(H) <750 mg/24 hr [facility] 1 Sodium, 24 hour Urine 207(H) 50 - 150 mmol/24 hr [facility] 1 Potassium, 24 hour Urine 57 20 - 100 mmol/24 hr [facility] 1 Magnesium, 24 hour Urine 132(H) 30 - 120 mg/24 hr [facility] 1 Phosphate, 24 hour Urine 964 600 - 1,200 mg/24 hr [facility] 1 AMMONIUM, URINE 29 15 - 60 mmol/24 hr [facility] 1 Chloride, 24 hour Urine 189 70 - 250 mmol/24 hr [facility] 1 Sulfate, 24 hour Urine 46 20 - 80 meq/24 hr [facility] 1 Urea nitrogen, 24 hour Urine (UUN) 13.26 6.00 - 14.00 g/24 hr [facility] 1 PROTEIN CATABOLIC RATE 1.7(H) 0.8 - 1.4 g/kg/24 hr [facility] 1 Creatinine, 24 hour Urine 1,162 Not Applic. mg/24 hr [facility] 1 CREATININE / KG BODY WEIGHT 21.3(H) 8.7 - 20.3 mg/24 hr/kg [facility] 1 Calcium/Kg Body Weight 5.6(H) <4.0 mg/24 hr/kg [facility] 1 RATIO CALCIUM TO CREATININE UA 264(H) 51 - 262 mg/g creat [facility] 1 COMMENT Note [facility] 1 PDF . [facility] 1 09/11/2023 8:00 AM RECREATIONAL LEADER 09/15/2023 11:00 PM RECREATIONAL LEADER Narrative [facility] - 09/17/2023 3:11 PM RECREATIONAL LEADER Performed at: ??01 - [facility] [address] ??[id number] Fan Mail Clerk: Lizandro Handley PhD, Phone: ??[phone] Specimen Comment: A duplicate report has been generated due to demographic updates. Reynaldo [facility] URINE ORDERABLES [facility] 1 documented in this encounter Visit Diagnoses Diagnosis Nephrolithiasis- Primary documented in this encounter
--- OUTSIDE RECORDS SUMMARY | 2024-10-13 01:30 | XMS_ITS | Encounter Summary ---
Author Organization [facility] Address [address] [address] Care Team Providers Care Shot Hole Shooter Name Role Phone Unavailable Primary Care Provider Unavailabl e Reason for Visit * Reason Onset Date Comments Referral 09/25/2024 Encounter Details Date Type Department Care Team (Late st Contact Info) Description 09/25/2024 Telephone [facility] - Family Medicine [address] [place] [address] Ysabel Carson MD [address] [place] [address] Referral Social History Tobacco Use Types Packs/Day Years Used Date Smoking Tobacco: Never Assessed Sex and Gender Information Value Date Recorded Sex Assigned at Not on file Gender Identity Not on file Sexual Orientation Not on file documented as of this encounter Miscellaneous Notes * Telephone Encounter - Marisel Shah - 09/25/2024 3:53 PM CST Called patient advised that we have not received a referral and told her we actually needed office notes and labs as well. SSORIES REPAIRER * Telephone Encounter - Yulisa Dominguez - 09/25/2024 3:27 PM CST Pt called states referral was sent from her primary 09/22/24 asking if referral has been received. SSORIES REPAIRER documented in this encounter Plan of Treatment Not on file documented as of this encounter Visit Diagnoses Not on filedocumented in this encounter
--- OUTSIDE RECORDS SUMMARY | 2024-10-13 01:30 | XMS_ITS | Clinical Summary ---
Author Organization [facility] Address [address] [place] [address] Care Team Providers Care Senior Mechanical Technician Name Role Phone Unavailable Primary Care Provider Unavailabl e Source Comments [facility],non-owned Affiliates and Associated Physician Practices is amultiple site organization consisting of ambulatory clinics and hospital sitesin [place], [place], [place] and [place]. This disclosure is being madepursuant to the Care Everywhere program and may not contain all information available regarding this patient. Last updated 18.[facility] Encounters Date Type Department Care Team Description 09/25/2024 Telephone [facility] - Family Medicine [address] [place] [address] Ysabel Carson MD Referral from Last 3 Months Social History Tobacco Use Types Packs/Day Years Used Date Smoking Tobacco: Never Assessed Sex and Gender Information Value Date Recorded Sex Assigned at Not on file Gender Identity Not on file Sexual Orientation Not on file Plan of Treatment Health Maintenance Due Date Last Done Comments LIPID TESTING 1981 MAMMOGRAM 1981 PAP SMEAR 1981 HIV SCREENING 1996 HEPATITIS C SCREENING 11/06/1999 DTAP/TDAP/TD VACCINES (1 - Tdap) 2000 HEPATITIS B VACCINE (1 of 3 - 19+ 3-dose series) 2000 DEPRESSION SCREENING 10/11/2023 COVID-19 VACCINE ( - 2023-2 5 season) 2024 INFLUENZA VACCINE (#1) 2024 ZOSTER VACCINE (1 of 2) 2031 HIB VACCINE Aged Out No longer eligi ble based on patient's age to complete this topic HPV VACCINE Aged Out No longer eligi ble based on patient's age to complete this topic MENINGOCOCCAL VACCINE Aged Out No andres simone eligible based on patient's age to complete this topic PNEUMOCOCCAL VACCINE Aged Out No long er eligible based on patient's age to complete this topic
--- OUTSIDE RECORDS SUMMARY | 2024-10-13 01:30 | XMS_ITS ---
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 DEA BURCH PLASTER PATTERN CASTER-C Active Last Documented On 06/24/2022 9:39AM ; [facility] Note: diagnosed by Psychiatrist Coronavirus Covid-19 Infection 06/16/2022 06/24/2022 DEA BURCH PLASTER PATTERN CASTER-C Resolved Last Documented On 2 9:38AM ; [facility] Joint Pain Fingers of Right Hand 05/19/2022 DON JEAN BAPTISTE C Active Last Documented On 2 11:24AM ; [facility] Nephrolithiasis 05/14/2021 DEA BURCH F MICROFILMING DOCUMENT PREPARER-C Active Last Documented On 1 11:08AM ; [facility] Major Depression Recurrent Mild 05/14/2021 CESARIO BURCH PLASTER PATTERN CASTER-C Active Last Documented On 1 10:56AM ; [facility] Tobacco Use Disorder 05/14/2021 06/16/2022 PATTI Sutherland [facility] Resolved Last Documented On 2 10:51AM ; [facility] Vitamin D Deficiency 05/14/2021 DEA STALLINGS PLASTER PATTERN CASTER-C Active Last Documented On 1 11:16AM ; [facility] Plan of Treatment Findings Encounter Date Ordered patient will call r appointment as needed COVID SICK VISIT- ESTABLISHED PATIENT with NIVIA Ferrell EPPS DNP 10/14/2023 Last Documented On 4 11:08AM ; [facility] Ordered return to the clinic if condition worsens or new symptoms arise COVID SICK VISIT- ESTABLISHED PATIENT with NIVIA EPPS DNP 10/14/2023 Last Documented On 4 11:08AM ; [facility] Ordered Clinical summary pro vided to patient WELL WOMAN - ESTABLISHED PT with PATTI LUNA RN EDILIA 06/17/2023 Last Documented On 3 11:02AM ; [facility] Clinical summary provided to patient PRO BLEM VISIT with DEA BURCH PLASTER PATTERN CASTER-C 05/06/2023 Last Documented On 3 6:56PM ; [facility] Plan of care reviewed and agreed to PROB TOMASA VISIT with DEA BURCH PLASTER PATTERN CASTER-C 05/06/2023 Last Documented On 3 6:56PM ; [facility] Clinical summary provided to patient PRO BLEM VISIT with DEA CAMPBELLERS PLASTER PATTERN CASTER-C 03/01/2023 Last Documented On 3 9:42AM ; [facility] Plan of care reviewed and agreed to PROB TOMASA VISIT with DEA Ayon KIERSTEN PLASTER PATTERN CASTER-C 03/01/2023 Last Documented On 3 9:42AM ; [facility] Clinical summary provided to patient PRO BLEM VISIT with DEA Ayon KIERSTEN PLASTER PATTERN CASTER-C 02/03/2023 Last Documented On 3 12:38PM ; [facility] Plan of care reviewed and agreed to PROB TOMASA VISIT with DEA BURCH PLASTER PATTERN CASTER-C 02/03/2023 Last Documented On 3 12:38PM ; [facility] Clinical summary provided to patient PRO BLEM VISIT with DEA BURCH PLASTER PATTERN CASTER-C 06/24/2022 Last Documented On 2 8:06AM ; [facility] Plan of care reviewed and agreed to PROB TOMASA VISIT with DEA BURCH PLASTER PATTERN CASTER-C 06/24/2022 Last Documented On 2 8:06AM ; [facility] Ordered Clinical summary pro vided to patient WELL WOMAN - ESTABLISHED PT with PATTI LUNA RN [facility] 06/16/2022 Last Documented On 2 10:53AM ; [facility] Ordered patient will call r appointment as needed COVID SICK VISIT- ESTABLISHED PATIENT with DEA DE DIOS PLASTER PATTERN CASTER-BC 05/22/2022 Last Documented On 2 6:54PM ; [facility] Ordered return to the clinic if condition worsens or new symptoms arise COVID SICK VISIT- ESTABLISHED PATIENT with DEA DE DIOS PLASTER PATTERN CASTER-BC 05/22/2022 Last Documented On 2 6:54PM ; [facility] I think that she has sprains of her collateral ligaments of the right index finger MCP joint and the fifth finger PIP joint. We encouraged by the typing of the second third as well as 1/4 and fifth fingers to minimize stress to the collateral ligaments. We encouraged the use of the body typing for the next three weeks with repetitive hand activities such as reaching, grasping, gripping or twisting. Continue with ice application as well as naproxen two pills twice a day. Follow-up as needed ORTHO ESTABLISHED PATIENT with RADHA Aguilera 05/19/2022 Last Documented On 2 11:42AM ; [facility] Continue current medication COVID SICK V ISIT- ESTABLISHED PATIENT with ZAHRA GOLDBERG PLASTER PATTERN CASTER-C 10/24/2021 Last Documented On 2 11:06AM ; [facility] The options include close observation CO VID SICK VISIT- ESTABLISHED PATIENT with ZAHRA GOLDBERG PLASTER PATTERN CASTER-C 10/24/2021 Last Documented On 2 11:06AM ; [facility] Clinical summary provided to patient PRO BLEM VISIT with DEA BURCH PLASTER PATTERN CASTER-C 09/11/2021 Last Documented On 1 8:29AM ; [facility] Plan of care reviewed and agreed to PROB TOMASA VISIT with DEA BURCH PLASTER PATTERN CASTER-C 09/11/2021 Last Documented On 1 8:29AM ; [facility] Ordered Clinical summary pro vided to patient . Plan discussed and patient/parent/caregiver states understanding COVID SICK VISIT- ESTABLISHED PATIENT with ERWIN Fraire JAIMIE PA-C 08/19/2021 Last Documented On 1 12:47PM ; [facility] Ordered follow-up visit as n eeded with an office visit. Chest xray and labs today. Checking for allergies and well go from there. Antibiotic for possible sinus infection. Push fluids, rest. Call sooner if needed. ER if severe COVID SICK VISIT- ESTABLISHED PATIENT with ERWIN ETIENNE PA-C 08/19/2021 Last Documented On 1 12:47PM ; [facility] Continue current medication COVID SICK V ISIT- ESTABLISHED PATIENT with NICA MONTIEL PLASTER PATTERN CASTER-C 07/31/2021 Last Documented On 1 12:12PM ; [facility] The options include close observation CO VID SICK VISIT- ESTABLISHED PATIENT with NICA MONTIEL PLASTER PATTERN CASTER-C 07/31/2021 Last Documented On 1 12:12PM ; [facility] Ordered Clinical summary pro vided to patient WELL WOMAN - NEW PATIENT with PATTI LUNA RN [facility] 06/10/2021 Last Documented On 1 2:13PM ; [facility] Ordered weight loss diet WELL WOMAN - NE W PATIENT with PATTI LUNA RN EDILIA 06/10/2021 Last Documented On 1 2:13PM ; [facility] Referrals To Diagnosis Counselor LIA SMITH [facility] Obsessive- compulsive personality disorder Last Documented On 2 12:10PM ; [facility] Urologist [facility] [address] [place] [address] - Calculus of kidney Note: in [place]. recurrent bi lateral renal stones and occasionally in the ureters, recurrent UTIs. difficulty urinating, weak stream. Most recent CT in October. Last Documented On 3 9:42AM ; [facility] Instructions to patient Intervention and counseling on cessation of tobacco use Last Documented On 4 10:54AM ; [facility] Intervention and counseling on cessation of tobacco use Last Documented On 3 10:40AM ; [facility] Instructed to call if excess roman bleeding or abdominal/pelvic pain Last Documented On 3 10:45AM ; [facility] Instructions For Patient: Mo nthly Self Breast Exam Last Documented On 3 10:45AM ; [facility] Recommend diet and exercise at least 30 min three times per week Last Documented On 3 10:45AM ; [facility] Intervention and counseling on cessation of tobacco use Last Documented On 3 9:16AM ; [facility] Instructed to call if excess roman bleeding or abdominal/pelvic pain Last Documented On 2 10:41AM ; [facility] Instructions For Patient: Mo nthly Self Breast Exam Last Documented On 2 10:41AM ; [facility] Recommend diet and exercise at least 30 min three times per week Last Documented On 2 10:41AM ; [facility] Instructions for patient Last Documented On 2 6:42PM ; [facility] Watch for signs/symptoms of infection, return to the clinic if seen Last Documented On 2 6:52PM ; [facility] Intervention and counseling on cessation of tobacco use Last Documented On 2 11:14AM ; [facility] Intervention and counseling on cessation of tobacco use Last Documented On 1 11:00AM ; [facility] Instructions for patient : B reast Self Exam discussed and technique reviewed Last Documented On 1 2:02PM ; [facility] Instructed to call if excess roman bleeding or abdominal/pelvic pain Last Documented On 1 2:02PM ; [facility] Recommend diet and exercise at least 30 min three times per week Last Documented On 1 2:02PM ; [facility] Intervention and counseling on cessation of tobacco use Last Documented On 1 7:33PM ; [facility] Education and Decision Aids were provided during visit for: Patient Education: Daily shana cium and vitamin D Last Documented On 3 10:45AM ; [facility] Patient Education: Daily shana cium and vitamin D Last Documented On 2 10:41AM ; [facility] Patient Education: Daily shana cium and vitamin D Last Documented On 1 2:02PM ; [facility] Assessments Includes: Assessments for all patient encounters Findings Encounter Date Upper respiratory infection COVID SICK V ISIT- ESTABLISHED PATIENT with NIVIA EPPS DNP 10/14/2023 Last Documented On 4 11:08AM ; [facility] [Other specified anxiety dis orders] depression with anxiety BEHAVIORAL HEALTH INTEGRATION FOLLOW UP with LIA D LUIS [facility] 10/08/2023 Last Documented On 3 10:01AM ; [facility] [Other specified anxiety dis orders] depression with anxiety BEHAVIORAL HEALTH INTEGRATION FOLLOW UP with LIA D LUIS [facility] 09/07/2023 Last Documented On 3 11:35AM ; [facility] [Other specified anxiety dis orders] depression with anxiety BEHAVIORAL HEALTH INTEGRATION FOLLOW UP with LIA D LUIS [facility] 08/31/2023 Last Documented On 3 11:52AM ; [facility] [Other specified anxiety dis orders] depression with anxiety BEHAVIORAL HEALTH INTEGRATION FOLLOW UP with LIA D LUIS [employer] 07/29/2023 Last Documented On 3 11:55AM ; [facility] [Other specified anxiety dis orders] depression with anxiety BEHAVIORAL HEALTH INTEGRATION FOLLOW UP with LIA D LUIS [employer] 07/07/2023 Last Documented On 3 2:40PM ; [facility] Depression with anxiety BEHAVIORAL HEALT H INTEGRATION FOLLOW UP with LIA D LUIS [facility] 06/23/2023 Last Documented On 3 11:58AM ; [facility] Routine gynecological exam w ith abnormal findings WELL WOMAN - ESTABLISHED PT with PATTI LUNA RN EDILIA 06/17/2023 Last Documented On 3 11:02AM ; [facility] Screen malignant neoplasm cervix WELL WO MAN - ESTABLISHED PT with PATTI LUNA RN EDILIA 06/17/2023 Last Documented On 3 11:02AM ; [facility] Mild recurrent major depression * PHONE CALL wit jessi BURCH [facility] 05/12/2023 Last Documented On 3 1:00PM ; [facility] Mild recurrent major depression BEHAVIOR AL HEALTH INTEGRATION FOLLOW UP with LIA D LUIS [employer] 05/12/2023 Last Documented On 3 2:46PM ; [facility] Mild recurrent major depression PROBLEM VISIT with DEA BURCH [facility] 05/06/2023 Last Documented On 3 6:56PM ; [facility] Obsessive compulsive persona lity disorder PROBLEM VISIT with DEA BURCH [facility] 05/06/2023 Last Documented On 3 6:56PM ; [facility] Mild recurrent major depression BEHAVIOR AL HEALTH INTEGRATION FOLLOW UP with LIA D LUIS [facility] [facility] 04/14/2023 Last Documented On 3 2:01PM ; [facility] Mild recurrent major depression BEHAVIOR AL HEALTH INTEGRATION FOLLOW UP with LIA D LUIS [facility] [facility] 03/03/2023 Last Documented On 3 1:58PM ; [facility] Acute irritant contact dermatitis PROBLE M VISIT with DEA BURCH [facility] 03/01/2023 Last Documented On 3 9:42AM ; [facility] Urinary tract infection [facility] 03/01/2023 Last Documented On 3 9:42AM ; [facility] Mild recurrent major depression BEHAVIOR AL HEALTH INTEGRATION FOLLOW UP with LIA D LUIS [employer] 02/02/2023 Last Documented On 3 4:32PM ; [facility] Mild recurrent major depression BEHAVIOR AL HEALTH INTEGRATION FOLLOW UP with LIA D LUIS [employer] 01/05/2023 Last Documented On 3 2:02PM ; [facility] Mild recurrent major depression BEHAVIOR AL HEALTH INTEGRATION FOLLOW UP with LIA D LUIS [employer] [facility] 12/08/2022 Last Documented On 3 12:04PM ; [facility] Mild recurrent major depression BEHAVIOR AL HEALTH INTEGRATION FOLLOW UP with LIA D LUIS [employer] 11/17/2022 Last Documented On 3 11:29AM ; [facility] Cervicalgia WALK IN PATIENT - ESTABLISHED PT with NIVIA VALDEZ PLASTER PATTERN CASTER-C 10/18/2022 Last Documented On 3 5:49PM ; [facility] Mild recurrent major depression BEHAVIOR AL HEALTH INTEGRATION FOLLOW UP with LIA D LUIS [employer] [facility] 09/29/2022 Last Documented On 2 2:05PM ; [facility] Mild recurrent major depression BEHAVIOR AL HEALTH INTEGRATION FOLLOW UP with LIA D LIUS [facility] [facility] 09/09/2022 Last Documented On 2 11:17AM ; [facility] Mild recurrent major depression BEHAVIOR AL HEALTH INTEGRATION FOLLOW UP with LIA D LUIS [facility] [facility] 09/01/2022 Last Documented On 2 11:59AM ; [facility] Mild recurrent major depression BEHAVIOR AL HEALTH INTEGRATION FOLLOW UP with LIA D LUIS [facility] [facility] 08/18/2022 Last Documented On 2 11:53AM ; [facility] Mild recurrent major depression BEHAVIOR AL HEALTH INTEGRATION FOLLOW UP with LIA D LUIS [employer] 08/11/2022 Last Documented On 2 12:06PM ; [facility] Mild recurrent major depression BEHAVIOR AL HEALTH INTEGRATION FOLLOW UP with LIA D LUIS [employer] 08/04/2022 Last Documented On 2 12:05PM ; [facility] Mild recurrent major depression BEHAVIOR AL HEALTH INTEGRATION ESTABLISHED with LIA D LUIS [employer] 07/09/2022 Last Documented On 2 11:55AM ; [facility] Mild recurrent major depression PROBLEM VISIT with DEA BURCH PLASTER PATTERN CASTER-C 06/24/2022 Last Documented On 2 8:06AM ; [facility] Nephrolithiasis PROBLEM VISIT with DEA HOWELL PLASTER PATTERN CASTER-C 06/24/2022 Last Documented On 2 8:06AM ; [facility] Obsessive compulsive persona lity disorder PROBLEM VISIT with DEA BURCH PLASTER PATTERN CASTER-C 06/24/2022 Last Documented On 2 8:06AM ; [facility] Vitamin D deficiency PROBLEM VISIT with DEA BURCH PLASTER PATTERN CASTER-C 06/24/2022 Last Documented On 2 8:06AM ; [facility] NORMAL FEMALE EXAM WELL WOMAN - ESTABLI SHED PT with PATTI LUNA RN [facility] 06/16/2022 Last Documented On 2 10:53AM ; [facility] Screen malignant neoplasm cervix WELL WO MAN - ESTABLISHED PT with PATTI LUNA RN [facility] 06/16/2022 Last Documented On 2 10:53AM ; [facility] Acute upper respiratory infection COVID SICK VISIT- ESTABLISHED PATIENT with DEA Yee DE DIOS PLASTER PATTERN CASTER-BC 05/22/2022 Last Documented On 2 6:54PM ; [facility] Assessment of pain of the ri ght finger joints ORTHO ESTABLISHED PATIENT with RADHA Aguilera 05/19/2022 Last Documented On 2 11:42AM ; [facility] Contact with and (Suspected) exposure to COVID-19 COVID SICK VISIT- ESTABLISHED PATIENT with ZAHRA GOLDBERG PLASTER PATTERN CASTER-C 10/24/2021 Last Documented On 2 11:06AM ; [facility] Memory lapses or loss PROBLEM VISIT with DEA BURCH PLASTER PATTERN CASTER-C 09/11/2021 Last Documented On 1 8:29AM ; [facility] Mild recurrent major depression PROBLEM VISIT with DEA BURCH PLASTER PATTERN CASTER-C 09/11/2021 Last Documented On 1 8:29AM ; [facility] Tobacco use disorder PROBLEM VISIT with DEA BURCH PLASTER PATTERN CASTER-C 09/11/2021 Last Documented On 1 8:29AM ; [facility] Vitamin D deficiency PROBLEM VISIT with DEA Ayon KIERSTEN PLASTER PATTERN CASTER-C 09/11/2021 Last Documented On 1 8:29AM ; [facility] Allergic rhinitis COVID SICK VISIT- ES TABLISHED PATIENT with ERWIN ETIENNE PA-C 08/19/2021 Last Documented On 1 12:47PM ; [facility] Assessment of cough COVID SICK VISIT- ES TABLISHED PATIENT with ERWIN ETIENNE PA-C 08/19/2021 Last Documented On 1 12:47PM ; [facility] Upper respiratory infection COVID SICK V ISIT- ESTABLISHED PATIENT with ERWIN INGRAMKINS PA-C 08/19/2021 Last Documented On 1 12:47PM ; [facility] Contact with and (Suspected) exposure to COVID-19 COVID SICK VISIT- ESTABLISHED PATIENT with NICA MONTIEL PLASTER PATTERN CASTER-C 07/31/2021 Last Documented On 1 12:12PM ; [facility] Upper respiratory infection COVID SICK V ISIT- ESTABLISHED PATIENT with NICA MONTIEL PLASTER PATTERN CASTER-C 07/31/2021 Last Documented On 1 12:12PM ; [facility] NORMAL FEMALE EXAM WELL WOMAN - NEW PATIENT with PATTI LUNA RN [facility] 06/10/2021 Last Documented On 1 2:13PM ; [facility] Screen malignant neoplasm cervix WELL WO MAN - NEW PATIENT with PATTI LUNA RN [facility] 06/10/2021 Last Documented On 1 2:13PM ; [facility] Mild recurrent major depression NEW JULIANNE ENT EXAM - ADULT with DEA Ayon KIERSTEN PLASTER PATTERN CASTER-C 05/14/2021 Last Documented On 1 7:38PM ; [facility] Nephrolithiasis NEW PATIENT EXAM - ADULT with HANK Ayon KIERSTEN PLASTER PATTERN CASTER-C 05/14/2021 Last Documented On 1 7:38PM ; [facility] Tobacco use disorder NEW PATIENT EXAM - ADULT with DEA BURCH PLASTER PATTERN CASTER-C 05/14/2021 Last Documented On 1 7:38PM ; [facility] Instructions Includes: Instructions for all patient encounters Instructions to patient Intervention and counseling on cessation of tobacco use Last Documented On 4 10:54AM ; [facility] Intervention and counseling on cessation of tobacco use Last Documented On 3 10:40AM ; [facility] Instructed to call if excess roman bleeding or abdominal/pelvic pain Last Documented On 3 10:45AM ; [facility] Instructions For Patient: Mo nthly Self Breast Exam Last Documented On 3 10:45AM ; [facility] Recommend diet and exercise at least 30 min three times per week Last Documented On 3 10:45AM ; [facility] Intervention and counseling on cessation of tobacco use Last Documented On 3 9:16AM ; [facility] Instructed to call if excess roman bleeding or abdominal/pelvic pain Last Documented On 2 10:41AM ; [facility] Instructions For Patient: Mo nthly Self Breast Exam Last Documented On 2 10:41AM ; [facility] Recommend diet and exercise at least 30 min three times per week Last Documented On 2 10:41AM ; [facility] Instructions for patient Last Documented On 2 6:42PM ; [facility] Watch for signs/symptoms of infection, return to the clinic if seen Last Documented On 2 6:52PM ; [facility] Intervention and counseling on cessation of tobacco use Last Documented On 2 11:14AM ; [facility] Intervention and counseling on cessation of tobacco use Last Documented On 1 11:00AM ; [facility] Instructions for patient : B reast Self Exam discussed and technique reviewed Last Documented On 1 2:02PM ; [facility] Instructed to call if excess roman bleeding or abdominal/pelvic pain Last Documented On 1 2:02PM ; [facility] Recommend diet and exercise at least 30 min three times per week Last Documented On 1 2:02PM ; [facility] Intervention and counseling on cessation of tobacco use Last Documented On 1 7:33PM ; [facility] Education and Decision Aids were provided during visit for: Patient Education: Daily shana cium and vitamin D Last Documented On 3 10:45AM ; [facility] Patient Education: Daily shana cium and vitamin D Last Documented On 2 10:41AM ; [facility] Patient Education: Daily shana cium and vitamin D Last Documented On 1 2:02PM ; [facility] Medical Equipment - Implanted Devices Includes: Current and historical Devices No Medical Equipment Recorded Medications Includes: Current and historical Medications Current Medications (continue as prescribed) Vilazodone HCl 10 MG Oral Tablet 12/02/2023 Provider: DEAANJEL MELO Diagnosis: Major depressive disorder, recurrent, mild TAKE 1 TABLET BY MOUTH DAILY Last Documented On 4 11:39AM By Dea MELO ; [facility] Alna 3 1000 MG Oral Capsule 09/06/2023 Provider: Diagnosis: 2 dailyOTC Last Documented On 3 9:21AM By Dea MELO ; [facility] Vitamin B12 1000 MCG Oral Tablet Extended Release 08/12 Provider: Diagnosis: OTC Last Documented On 3 9:22AM By Dea MELO ; [facility] Magnesium Citrate 125 MG Oral Capsule 09/06/2023 Pro vider: Diagnosis: takes 500mg dailyOTC Last Documented On 3 9:22AM By Dea MELO ; [facility] Vitamin D 25 MCG (1000 UT) Oral Tablet 06/24/2022 Pr ovider: Diagnosis: Last Documented On 06/24/2022 9:07AM By Carmela PHILLIPS ; [facility] Past Medications on file Oseltamivir Phosphate 75 MG Oral Capsule 10/14/2023 - 10/19/2023 Provider: NIVIA EPPS DNP Diagnosis: Acute upper respiratory infection, unspecified 1 CAPSULE TWO TIMES A DAY Last Documented On 4 11:15AM By Nivia Epps DNP ; [facility] Benzonatate 200 MG Oral Capsule 10/14/2023 - 10/21/2023 Provider: NIVIA DOHERTY DNP Diagnosis: Acute cough One tablet three times a day PRN for cough Last Documented On 4 11:15AM By Nivia Epps DNP ; [facility] Vilazodone HCl 10 MG Oral Tablet 09/06/2023 - 12/02/2023 Provider: DEA MEOL Diagnosis: Major depressive disorder, recurrent, mild One tablet daily Last Documented On 4 11:38AM By Dea MELO ; [facility] Vitamin B12 1000 MCG Oral Tablet Extended Releas e 09/06/2023 - 09/06/2023 Provider: Diagnosis: Last Documented On 3 9:22AM By Dea MELO ; [facility] buPROPion HCl ER (XL) 150 MG Oral Tablet Extended Release 24 Hour 08/01/2023 - 09/06/2023 Provider: DEA MELO Diagnosis: Major depressive disorder, recurrent, mild TAKE 1 TABLET BY MOUTH DAILY Last Documented On 3 9:27AM By Dea MELO ; [facility] metroNIDAZOLE 500 MG Oral Tablet 06/17/2023 - 09/06/2023 Provider: PATTI LUNA RN [facility] Diagnosis: Acute vaginitis One tablet twice a day ONE T WICE DAILY WITH FOOD NO ETOH Last Documented On 3 9:20AM By eDa MELO ; [facility] buPROPion HCl ER (XL) 150 MG Oral Tablet Extended Release 24 Hour 05/12/2023 - 08/01/2023 Provider: DEA MELO Diagnosis: Major depressive disorder, recurrent, mild One tablet daily Last Documented On 3 2:47PM By Dea MELO ; [facility] levoFLOXacin 500 MG Oral Tablet 05/09/2023 - 06/17/2023 Provider: DEA GUERRAC Diagnosis: Urinary tract infection, site not specified One tablet daily Last Documented On 06/17/2023 10:37AM By Raina Brewer ; [facility] Triamcinolone Acetonide 0.1% External Cream 03/01/2023 - 06/17/2023 Provider: DEA FIELDS-Ale Diagnosis: Irritant contact dermatitis, unspecified cause Apply twice a day to [place] rash on stomach, arms, and legs until healed. Last Documented On 06/17/2023 10:38AM By Raina Brewer ; [facility] Sulfamethoxazole-Trimethopri m 800-160 MG Oral Tablet 03/01/2023 - 05/06/2023 Provider: DEA FIELDS-C Diagnosis: Urinary tract infection, site not specified One tablet twice a day Last Documented On 05/06/2023 8:47AM By Carmela PHILLIPS ; [facility] Macrobid 100 MG Oral Capsule 02/03/2023 - 03/01/2023 Provider: DEA BOLIVARP-C Diagnosis: Urinary tract infection, site not specified 1 CAPSULE TWO TIMES A DAY Last Documented On 3 9:28AM By Dea MELO ; [facility] Escitalopram Oxalate 20 MG Oral Tablet 01/28/2023 - 09/06/2023 Provider: DEA BOLIVARP-Ale Diagnosis: take 1/2 tab daily Last Documented On 09/06/2023 8:57AM By Carmela PHILLIPS ; [facility] predniSONE 20 MG Oral Tablet 10/18/2022 - 02/02/2023 Provider: NIVIA ROCA P[employer]ER PATTERN CASTER-C Diagnosis: Cervicalgia as directed 2 tab po qd x 5 Last Documented On 3 7:29PM By Dea MELO ; [facility] Cyclobenzaprine HCl 10 MG Oral Tablet 10/18/2022 - 02/02/2023 Provider: NIVIA ROCA [employer] PAT[employer] CASTER-C Diagnosis: Cervicalgia 1/2-One tablet three times a day Last Documented On 3 7:29PM By Dea MELO ; [facility] Macrobid 100 MG Oral Capsule 06/24/2022 - 02/02/2023 Provider: DAE BOLIVARP-Ale Diagnosis: Urinary tract infection, site not specified 1 CAPSULE TWO TIMES A DAY Last Documented On 3 7:29PM By Dea MELO ; [facility] Escitalopram Oxalate 20 MG Oral Tablet 06/24/2022 - 02/03/2023 Provider: DEA FIELDS-Ale Diagnosis: Major depressive disorder, recurrent, mild One tablet daily Last Documented On 3 12:38PM By Dea MELO ; [facility] Escitalopram Oxalate 20 MG Oral Tablet 06/14/2022 - Provider: Diagnosis: Last Documented On 2 9:41AM By Dea MELO ; [facility] Zithromax Z-Ravinder 250 MG Oral Tablet 05/22/2022 - 06/16/2022 Provider: DEA E LANRE P[employer]ER PATTERN CASTER-BC Diagnosis: Acute cough as directed Last Documented On 06/16/2022 10:34AM By Raina Brewer ; [facility] Lexapro 10 MG Oral Tablet 11/17/2021 - 06/16/2022 Provider: DEA GUERRERO [employer] PAT[employer] CASTER-C Diagnosis: Major depressive disorder, recurrent, mild One tablet daily Last Documented On 06/16/2022 10:34AM By Raina Brewer ; [facility] Zithromax Z-Ravinder 250 MG Oral Tablet 08/19/2021 - 09/11/2021 Provider: ERWIN ETIENNE PAZachC Diagnosis: Cough, unspecifi ed Take as directed. Last Documented On 09/11/2021 9:53AM By Carmela PHILLIPS ; [facility] Ergocalciferol 1.25 MG (47217 UT) Oral Capsule 05/15/2021 - 05/19/2022 Provider: DEA BURCH P[employer] PATTERN CASTER-C Diagnosis: Vitamin D defici ency, unspecified take 1 capsule weekly. Last Documented On 05/19/2022 11:14AM By URIEL POOLE LPN ; [facility] Lexapro 5 MG Oral Tablet 05/14/2021 - 09/11/2021 Provider: DEA GUERRERO [employer] CASTER-C Diagnosis: Major depressive disorder, recurrent, mild One tablet daily, ok to wean off if you would like Last Documented On 10:06AM By Dea FIELDS-Ale ; [facility] Lexapro 5 MG Oral Tablet 05/14/2021 - 05/14/2021 Provi neel: Diagnosis: Last Documented On 11:17AM By Dea Burch PLASTER PATTERN CASTER-C ; [facility] Medications Administered Includes: Administered Medications in patient's chart No Administered Medications Recorded Vital Signs Includes: Vital Signs from 10/13/2023 through 10/13/2024 Vital Name 10/14/2023 10:52A Blood Pressure Sitting (mmHg) 100/60 Pulse Rate-Sitting (bpm) 81 Temp-Oral (F) 99 Height (in) 66 Weight (lb) 120.2 Body Mass Index 19.4 Body Surface Area 1.6 Oxygen Saturation (%) 99 Last Documented: On 10/14/2023 10:54A M ; [facility] Results Includes: Results from 10/13/2023 through 10/13/2024 Influenza A/B [facility] Ordered by NIVIA EPPS DNP on 01/2024 Collected: Reported: 10/14/2023 10:55 Last Documented On 4 10:58AM ; [facility] Reviewed on 10/14/2023; All test results are final unless otherwise noted. Influenza A neg N (Normal) Last Documented On 4 10:58AM ; [facility] Influenza B neg N (Normal) Last Documented On 4 10:58AM ; [facility] INT. QC ACCEPTABLE? yes N (Normal) Last Documented On 4 10:58AM ; [facility] LOT # & EXP. DATE [id number] 09/09/24 N (Normal) Last Documented On 4 10:58AM ; [facility] History of Present Illness History of Present Illness not supported for this document type No History of Present Illness Recorded Social History Description Last Updated Current smoker 10/14/2023 Last Documented On 4 11:08AM ; [facility] Smoking electronic cigarettes 10/14/2023 Last Documented On 4 11:08AM ; [facility] Consuming 5 or more drinks per day None 09/06/2023 Last Documented On 3 1:09PM ; [facility] Not recovering alcoholic 09/06/2023 Last Documented On 3 1:09PM ; [facility] Not recovering from substance abuse 08/12 Last Documented On 3 1:09PM ; [facility] Number of times used recreat ional drug/ prescription drug for nonmedical reason. None 09/06/2023 Last Documented On 3 1:09PM ; [facility] [PHQ-2] Patient Health Questionnaire 2 i tem total score: 3 (Scale: 0-6) 06/17/2023 Last Documented On 3 11:02AM ; [facility] control is not practiced 3 Last Documented On 3 11:02AM ; [facility] Does not have anal sex 06/17/2023 Last Documented On 3 11:02AM ; [facility] Does not have vaginal sex. 06/17/2023 Last Documented On 3 11:02AM ; [facility] Frequency: Daily 06/17/2023 Last Documented On 3 11:02AM ; [facility] Has not used injectable drugs 06/17/2023 Last Documented On 3 11:02AM ; [facility] Has sex with females only 06/17/2023 Last Documented On 3 11:02AM ; [facility] Marital history single 06/17/2023 Last Documented On 3 11:02AM ; [facility] No consumption of alcohol 06/17/2023 Last Documented On 3 11:02AM ; [facility] No drug use by a sexual partner 06/17/20 Last Documented On 3 11:02AM ; [facility] No travel 06/17/2023 Last Documented On 3 11:02AM ; [facility] Not using alcohol 06/17/2023 Last Documented On 3 11:02AM ; [facility] Not using drugs 06/17/2023 Last Documented On 3 11:02AM ; [facility] Partner has not had a STD in the past ye ar 06/17/2023 Last Documented On 3 11:02AM ; [facility] Patient does not report having sex when she didn't want to 06/17/2023 Last Documented On 3 11:02AM ; [facility] Patient has not had sex unde r the influence of alcohol or drugs in the last year 06/17/2023 Last Documented On 3 11:02AM ; [facility] Sexual partner has not had o ther partners while in relationship with patient 06/17/2023 Last Documented On 3 11:02AM ; [facility] Sexual partner has not had sex with pros titutes 06/17/2023 Last Documented On 3 11:02AM ; [facility] Sexually active 06/17/2023 Last Documented On 3 11:02AM ; [facility] Sexually active with partners in the las t year 06/17/2023 Last Documented On 3 11:02AM ; [facility] Tobacco non-user 06/17/2023 Last Documented On 3 11:02AM ; [facility] Tobacco use in vape 06/17/2023 Last Documented On 3 11:02AM ; [facility] Type: Marijuana 06/17/2023 Last Documented On 3 11:02AM ; [facility] Smoking Status Unknown Procedures and Surgical History Includes: Procedures from 10/13/2023 through 10/13/2024 Procedures Code Diagnosis Performing Provider Service L ocation Service Date INFLUENZA TEST A/B (CLIA WAIVED) 01453 Acute cough NIVIA EPPS [facility] 10/14/2023 Last Documented On 4 12:29PM ; [facility] Medical History Includes: Medical History in patient's chart Description Last Updated History of screening mammogram was perfo rmed 06/202206/17/2023 Last Documented On 3 11:02AM ; [facility] LMP: 05/21/2023 06/17/2023 Last Documented On 3 11:02AM ; [facility] A mammogram was performed 06/16/2022 Last Documented On 2 10:53AM ; [facility] Primary Care Provider: Dr. Melgar 2021 Last Documented On 2 10:53AM ; [facility] Last pap smear date 06/10/2021 06/16/2022 Last Documented On 2 10:53AM ; [facility] 0 06/16/2022 Last Documented On 2 10:53AM ; [facility] Not taking OTC medications 10/24/2021 Last Documented On 2 11:06AM ; [facility] No fall 10/24/2021 Last Documented On 2 11:06AM ; [facility] Result: normal 06/10/2021 Last Documented On 1 2:13PM ; [facility] Elective (s) 0 06/10/2021 Last Documented On 1 2:13PM ; [facility] No previous STD 06/10/2021 Last Documented On 1 2:13PM ; [facility] Previous live (s) 0 06/10/2021 Last Documented On 1 2:13PM ; [facility] Previous premature delivery(s) 0 021 Last Documented On 1 2:13PM ; [facility] reviewed and unchanged since last visit 05/14/2021 Last Documented On 1 7:38PM ; [facility] Exercise 05/14/2021 Last Documented On 1 7:38PM ; [facility] No. of miscarriages: 0 05/14/2021 Last Documented On 1 7:38PM ; [facility] No. of Pregnancies: 0 05/14/2021 Last Documented On 1 7:38PM ; [facility] Reported recurrent infections 05/14/2021 Last Documented On 1 7:38PM ; [facility] Family History Includes: Family History in patient's chart Description Last Updated Family history unchanged 05/22/2022 Last Documented On 2 6:54PM ; [facility] Maternal history of diabetes mellitus Last Documented On 1 2:13PM ; [facility] Paternal history of cancer 06/10/2021 Last Documented On 1 2:13PM ; [facility] Paternal history of depression 1 Last Documented On 1 2:13PM ; [facility] Maternal history of Blood Transfusions 0 06/10/2021 Last Documented On 1 2:13PM ; [facility] Family history reviewed - unchanged sinc e last visit 05/14/2021 Last Documented On 1 7:38PM ; [facility] Paternal history of drug dependence 01/2021 Last Documented On 1 7:38PM ; [facility] Review of Systems Review of Systems not supported for this document type No Review of Systems Recorded Mental Status No Mental Status Recorded Functional Status No Functional Status Recorded Physical Exam Physical Exam not supported for this document type No Physical Exam Recorded Immunizations Includes: Immunizations in patient's chart Vaccine Dose # Date Site Reaction(s) Status Source COVID-19 Pfizer 1 04/23/2021 Right Arm Complete (R eported) Patient Last Documented On 1 11:11AM ; [facility] Allergies Includes: Active, inactive, and resolved Allergies Substance Type Reaction Onset Date Resolved Date Statu s Neomycin Allergy 05/14/2021 Active Last Documented On 4 10:54AM ; [facility] Corticosteroids Allergy 05/14/2021 Act roman Last Documented On 4 10:54AM ; [facility] Encounters Includes: Encounters from 10/13/2023 through 10/13/2024 Encounter Provider Location Date Check-In Time Check-Out Time Diagnosis COVID SICK VISIT- ESTABLISHED PATIENT NIVIA EPPS DNP [facility] 10/14/19 24 10:45AM 11:02AM Upper Respiratory Infection Insurance Includes: Active Insurance Policies Plan Name Member ID Group # Subscriber Relationship Effect roman Dates 1 - [facility] [id number] IBETH BARRIOS Self 04/10/2021 - Unknown Clinical Notes Includes: Signed Clinical Notes starting from 10/30/2022 * Progress note Date Encounter Last Documented by 10/14/2023 COVID SICK VISIT- ESTABLISHED PA MARIENT Last documented on 10/14/2023; 11:08 AM, NIVIA EPPS DNP; [facility] Chief Complaint The Chief Complaint is: Cough, [...] yes Normal LOT # & EXP. DATE [id number] 09/09/24 Normal Assessment - [J06.9 - Acute upper respiratory infection, unspecified] Upper respiratory infection Therapy - Intervention and counseling on cessation of tobacco use. - Clinical summary provided to patient. Discussed Patient tested negative for influenza at today's visit. Suspect that the patient is actually positive and was too early to detect. Will treat accordingly. Tesmichelleon perles PRN for cough. Tamiflu as directed [...]
--- OUTSIDE RECORDS SUMMARY | 2024-10-13 01:30 | XMS_ITS | Encounter Summary ---
Author Organization [facility] Address [address] [place] [address] Phone Care Team Providers Care Marketing Production Specialist Name Role Phone Melissa Melgar Primary Care Provider [phone] Encounter Details Date Type Department Care Team (Latest Contact Info) Description 05/09/2024 1:00 PM CDT Office Visit [facility] [address] [place], [place] [id number] Maria C Sharif PA [address] [place] [address] Nephrolithiasis (Primary Dx) Social History Tobacco Use [...] Mass Index 19.11 05/09/2024 12:57 PM CDT documented in this encounter Progress Notes * [place] [place] - 05/09/2024 1:00 PM CDT Images from the original note were not included. Nephrology Ibeth Mera - 1980 Primary - MELISSA MELGAR History [...] history of bowel resections/gastric bypass/weight loss surgery No stones since last visit. Urinating a lot! 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 Respiratory: Negative for chest tightness and shortness of breath. Cardiovascular: Negative for chest pain and leg swelling. Gastrointestinal: Negative for diarrhea, nausea and vomiting. Genitourinary: Negative for difficulty urinating, dysuria, hematuria and urgency. Musculoskeletal: Negative for back pain. Neurological: Negative for weakness, numbness and headaches. All other systems reviewed and are negative. Medications: Current Outpatient Medications on File Prior to Visit Medication Sig Dispense Refill cholecalciferol (VITAMIN D-3) 25 MCG (1000 UT) tablet Take 2,000 Units by mouth in the morning. Cyanocobalamin ER 1000 MCG tablet controlled-release Take 1,000 mcg by mouth in the morning. Magnesium Citrate 125 MG capsule Take 500 mg by mouth 1 (one) time each day [place] 3 1000 MG capsule Take 1 capsule by mouth 1 (one) time each day vilazodone (VIIBRYD) 10 mg tablet tablet Take 10 mg by mouth 1 (one) time each day No current facility-administered medications on file prior to visit. Vital Signs: BP 106/62 (BP Location: Right arm, Patient Position: Sitting) Pulse 69 BMI 19.11 kg/m?? Physical Exam: General No apparent distress H&N [...] Ferritin urinalysis UP:C UACR Uric acid 3.2 24 hour urine 3.8 L, urine calcium 293, citrate 767, CaPhos SS 1.4, urine pH 7.1, urine sodium 197 Imaging: XR KUB 08/10/23: There are calcifications [...] calcium based. 1.) Nephrolithiasis: Litholink notable for improved urine volume, hypercalciuria, hyperuricosuria, slightly elevated urine pH, elevated urine sodium, and high protein diet. Metabolic workup normal with unremarkable PTH, uric acid, and CMP. The following recommendations were made: Continue good fluid intake but ok to reduce given urinary frequency Continue 2 servings of dairy Continue lower protein diet Given lower BP will not add hydrochlorothiazide at this time Start allopurinol for hyperuricosuria as this can also reduce risk of calcium based stones Vit D level now Renal US now F/U 1 year with 24 hour urine and KUB MARIA C SHARIF PA [facility]: MD Maria C Flores PA Graeme Mindel, MD Justin Krafft, PA Derek Larson, MD FASN Rose Mattli, NP Rohan Devanpalli, MD Candace Shirley, NP [address] [place], [place] [id number] [phone] Office [phone] - Fax documented in this encounter Plan of Treatment Upcoming Encounters Date Type Department Care Team (Late st Contact Info) Description 05/09/2025 11:40 AM CDT Office Visit [facility] [address] [place], [place] [id number] Marcell Adams MD [address] [place] [address] documented as of this encounter Visit Diagnoses Diagnosis Nephrolithiasis- Primary documented in this encounter Care Teams Marketing Production Specialist Relationship Specialty Start Date End Date Melissa Melgar [address] [place] [address] PCP - General 09/22/23 documented as of this encounter
--- OUTSIDE RECORDS SUMMARY | 2024-10-13 01:30 | XMS_ITS | Clinical Summary ---
Author Organization [facility] Address [address] [place] [address] Phone Care Team Providers Care Flame Hardening Machine Setter Name Role Phone KIERSTEN DIAMOND-Ale, DEA Ayon Unavailable [phone] JEREMY ANTONIO WHEDILIA BC, PATTI Corrigan Unavailable [phone] MELISSA MELGAR MD Primary Care Provider [phone] KATIE DILLARD LCSW Unavailable [phone] Reason for Visit and Chief Complaint The Chief Complaint is: Med check/follow up, The Chief Complaint is: Check up. She felt fine with the buproprion but she has noticed that she is feeling more irritable. She is wondering if that is the case. She said that she gets angry over little things. 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 Take Wellbutrin every other day X 2-3 weeks, then stop. 2. Starting Viibryd 10mg PO daily for depression due to getting anger with Wellbutrin. Educated on side effects. 3. Continue seeing roly Lazoor. Follow up in October or November for check up. 1) Return to the clinic if condition worsens or new symptoms arise. 2) Patient to call if problem develops. - Last Documented On 09/06/2023 1:09PM ; [facility] Assessments Includes: Assessments from this encounter No Assessments Recorded Medical Equipment - Implanted Devices Includes: Current Devices No Medical Equipment Recorded Medications Includes: Medications discussed during this encounter and other current Medications Discontinued / Stopped on this date on 09/06/2023 Vitamin B12 1000 MCG Oral Tablet Extended Release Provider: Diagnosis: Last Documented On 3 9:22AM By Dea MELO ; [facility] buPROPion HCl ER (XL) 150 MG Oral Tablet Extended Release 24 Hour Provider: DEA MELO Diagnosis: Major depressive disorder, recurrent, mild Last Documented On 3 9:27AM By Dea MELO ; [facility] metroNIDAZOLE 500 MG Oral Tablet Provider : PATTI LUNA RN [facility] Diagnosis: Acute vaginitis Last Documented On 3 9:20AM By Dea MELO ; [facility] Escitalopram Oxalate 20 MG Oral Tablet Pr ovider: DEA FIELDS-Ale Diagnosis: Last Documented On 09/06/2023 8:57AM By Carmela PHILLIPS ; [facility] New / Renewed during this visit DEA MELO on 09/06/2023 Vilazodone HCl 10 MG Oral Tablet Provider: DEA MELO 30 day supply: 30 tablet, 2 refills Diagnosis: Major depressive disorder, recurrent, mild One tablet daily Pharmacy: [facility] - [address] [place] [address], [phone] - Last Documented On 4 11:38AM By Dea MELO ; [facility] Current Medications (continue as prescribed) Vilazodone HCl 10 MG Oral Tablet 12/02/2023 Provider: DEA MELO Diagnosis: Major depressive disorder, recurrent, mild TAKE 1 TABLET BY MOUTH DAILY Last Documented On 4 11:39AM By Dea MELO ; [facility] [place] 3 1000 MG Oral Capsule 09/06/2023 Provider: Diagnosis: 2 dailyOTC Last Documented On 3 9:21AM By Dea MELO ; [facility] Vitamin B12 1000 MCG Oral Tablet Extended Release 08/12 Provider: Diagnosis: OTC Last Documented On 3 9:22AM By Dea MELO ; [facility] Magnesium Citrate 125 MG Oral Capsule 09/06/2023 Pro vider: Diagnosis: takes 500mg dailyOTC Last Documented On 3 9:22AM By Dea MELO ; [facility] Vitamin D 25 MCG (1000 UT) Oral Tablet 06/24/2022 Pr ovider: Diagnosis: Last Documented On 06/24/2022 9:07AM By Carmela PHILLIPS ; [facility] Past Medications on file Oseltamivir Phosphate 75 MG Oral Capsule 10/14/2023 - 10/19/2023 Provider: NIVIA EPPS DNP Diagnosis: Acute upper respiratory infection, unspecified 1 CAPSULE TWO TIMES A DAY Last Documented On 4 11:15AM By Nivia Epps DNP ; [facility] Benzonatate 200 MG Oral Capsule 10/14/2023 - 10/21/2023 Provider: NIVIA DOHERTY DNP Diagnosis: Acute cough One tablet three times a day PRN for cough Last Documented On 4 11:15AM By Nivia Epps DNP ; [facility] Medications Administered Includes: Administered Medications from this encounter No Administered Medications Recorded Vital Signs Includes: Vital Signs from this encounter Vital Name 09/06/2023 08:58A Blood Pressure Sitting R 98/60 BP Cuff Size Regular Pulse Rate-Sitting (bpm) 70 Respiration Rate (breaths/min) 22 Temp-Oral (F) 97.8 Height (in) 66 Weight (lb) 122.125 Body Mass Index 19.7 Body Surface Area 1.6 Oxygen Saturation (%) 99 Last Documented: On 09/06/2023 9:03AM ; [facility] Results Includes: Results discussed during this encounter No Results Recorded For Specified Dates History of Present Illness Includes: History of Present Illness from this encounter HPI RADHA BARRIOS is a 42 year old female. - Allergy list reviewed - Problem list reviewed - Medication list reviewed Patient is a 42 year old female who presents today for a med check and routine follow up. She got tinges of anger with little things, and feels like it is over the silliest things. Patient has been on Bupropion since May and no issues with it except having the anger issues which she didn't have before. No worsened depression. She is not using Marijuana. She feels motivated. Her dog has health problems, and has been feeling emotional over that. She is able to feel her feelings which is what she wants, but is getting angry, which concerns her. With lexapro, she felt numb, which she doesn't want. Patient feels fine otherwise, denies HOWARD, SOB, CP, n/v/d/c, suicidal thoughts, or any other concerns. Doing well with counseling through Katie Dillard. Social History Description Last Updated Current smoker 10/14/2023 Last Documented On 3 8:56AM ; [facility] Smoking electronic cigarettes 10/14/2023 Last Documented On 3 8:56AM ; [facility] Consuming 5 or more drinks per day None 09/06/2023 Last Documented On 3 1:09PM ; [facility] Not recovering alcoholic 09/06/2023 Last Documented On 3 1:09PM ; [facility] Not recovering from substance abuse 08/12 Last Documented On 3 1:09PM ; [facility] Number of times used recreat ional drug/ prescription drug for nonmedical reason. None 09/06/2023 Last Documented On 3 1:09PM ; [facility] [PHQ-2] Patient Health Questionnaire 2 i tem total score: 3 (Scale: 0-6) 06/17/2023 Last Documented On 3 8:56AM ; [facility] control is not practiced 3 Last Documented On 3 8:56AM ; [facility] Does not have anal sex 06/17/2023 Last Documented On 3 8:56AM ; [facility] Does not have vaginal sex. 06/17/2023 Last Documented On 3 8:56AM ; [facility] Frequency: Daily 06/17/2023 Last Documented On 3 8:56AM ; [facility] Has sex with females only 06/17/2023 Last Documented On 3 8:56AM ; [facility] Marital history single 06/17/2023 Last Documented On 3 8:56AM ; [facility] Sexually active 06/17/2023 Last Documented On 3 8:56AM ; [facility] Sexually active with partners in the t year 06/17/2023 Last Documented On 3 8:56AM ; [facility] Tobacco non-user 06/17/2023 Last Documented On 3 8:56AM ; [facility] Tobacco use in vape 06/17/2023 Last Documented On 3 8:56AM ; [facility] Type: Marijuana 06/17/2023 Last Documented On 3 8:56AM ; [facility] Smoking Status Unknown Procedures and Surgical History Includes: Procedures from this encounter Procedures Code Diagnosis Performing Provider Service L ocation Service Date continue current medication Last Documented On 3 9:09AM ; [facility] use of tobacco assessment performed 1000F Last Documented On 3 9:09AM ; [facility] review of medications documented 1160F Last Documented On 3 8:57AM ; [facility] screening for adult depression: impressi on and score Last Documented On 3 9:27AM ; [facility] standardized depression screening: posit roman for symptoms Last Documented On 3 9:27AM ; [facility] PHQ-9: total score 7 Last Documented On 3 9:27AM ; [facility] Medical History Includes: Medical History addressed during this encounter Description Last Updated History of screening mammogram was perfo rmed 06/202206/17/2023 Last Documented On 3 8:56AM ; [facility] LMP: 05/21/2023 06/17/2023 Last Documented On 3 8:56AM ; [facility] A mammogram was performed 06/16/2022 Last Documented On 3 8:56AM ; [facility] Last pap smear date 06/10/2021 06/16/2022 Last Documented On 3 8:56AM ; [facility] 0 06/16/2022 Last Documented On 3 8:56AM ; [facility] Result: normal 06/10/2021 Last Documented On 3 8:56AM ; [facility] Elective (s) 0 06/10/2021 Last Documented On 3 8:56AM ; [facility] Previous live (s) 0 06/10/2021 Last Documented On 3 8:56AM ; [facility] Previous premature delivery(s) 0 021 Last Documented On 3 8:56AM ; [facility] reviewed and unchanged since last visit 05/14/2021 Last Documented On 3 8:56AM ; [facility] Exercise 05/14/2021 Last Documented On 3 8:56AM ; [facility] No. of miscarriages: 0 05/14/2021 Last Documented On 3 8:56AM ; [facility] No. of Pregnancies: 0 05/14/2021 Last Documented On 3 8:56AM ; [facility] Reported recurrent infections 05/14/2021 Last Documented On 3 8:56AM ; [facility] Family History Includes: Family History addressed during this encounter Description Last Updated Family history unchanged 05/22/2022 Last Documented On 3 8:56AM ; [facility] Maternal history of diabetes mellitus Last Documented On 3 8:56AM ; [facility] Paternal history of cancer 06/10/2021 Last Documented On 3 8:56AM ; [facility] Paternal history of depression 1 Last Documented On 3 8:56AM ; [facility] Maternal history of Blood Transfusions 0 06/10/2021 Last Documented On 3 8:56AM ; [facility] Family history reviewed - unchanged sinc e last visit 05/14/2021 Last Documented On 3 8:56AM ; [facility] Paternal history of drug dependence 01/2021 Last Documented On 3 8:56AM ; [facility] Review of Systems Includes: Review of Systems from this encounter Systemic: Not feeling tired. No fever, no chills, no night sweats, and no edema. Head: No headache. Eyes: No vision problems, no itching of the eyes, and no watery discharge from eyes. Otolaryngeal: No hearing loss, no tinnitus, no watery nasal discharge, and not blood-tinged. No nasal passage blockage (stuffiness), no sore throat, and no itchy throat. Cardiovascular: No chest pain or discomfort and no palpitations. Pulmonary: No dyspnea, not expressed as feeling short of breath, and no supine dyspnea. No cough, no hemoptysis, and no wheezing. Gastrointestinal: Normal appetite, no dysphagia, and no heartburn. No nausea, no vomiting, no abdominal pain, and no melena. No diarrhea. Genitourinary: No hematuria, no increase in urinary frequency, and no nocturia. No urinary loss of control and no dysuria. Musculoskeletal: No Limited ROM present, no back pain, no muscle aches, no localized joint pain, and no localized joint stiffness. Neurological: No dizziness, no vertigo, no fainting, no decrease in concentrating ability, and no slurred speech. No sensory disturbances, no tingling, and no numbness. Psychological: No anxiety. Depression mild, but has anger. No sleep disturbances. Skin: No pruritus. No skin lesions and no rash. Mental Status Includes: Mental Status from this encounter Description No disorientation was observ ed The memory was unimpaired No anxiety Functional Status Includes: Functional Status from this encounter No Functional Status Recorded Physical Exam Includes: Physical Exam from this encounter Allergies Includes: Active Allergies Substance Type Reaction Onset Date Resolved Date Statu s Neomycin Allergy 05/14/2021 Active Last Documented On 4 10:54AM ; [facility] Corticosteroids Allergy 05/14/2021 Act roman Last Documented On 4 10:54AM ; [facility] Encounters Encounter Provider Location Date Check-In Time Check-Out Time Diagnosis CHECK UP DEA BURCH EQUIPMENT WORKER-C 09/06/2023 8:56AM 11:59PM Insurance Includes: Active Insurance Policies Plan Name Member ID Group # Subscriber Relationship Effect roman Dates 1 - [facility] [id number] RADHA BARRIOS Self 04/10/2021 - Unknown Clinical Notes Includes: Clinical Notes from this encounter * Progress note Date Encounter Last Documented by 09/06/2023 CHECK UP Last documented on 09/06/2023; 1:09 PM, DEA BURCH EQUIPMENT WORKER-C; [facility] Active Problems & Conditions - M79.644 - Joint Pain Fingers of Right Hand - F33.0 - Major Depression Recurrent Mild - N20.0 - Nephrolithiasis - F60.5 - Obsessive Compulsive Personality Disorder - diagnosed by Psychiatrist - E55.9 - Vitamin D Deficiency Chief Complaint The Chief Complaint is: Check up. She felt fine with the buproprion but she has noticed that she is feeling more irritable. She is wondering if that is the case. She said that she gets angry over little things.The Chief Complaint is: Med check/follow up. History of Present Illness RADHA BARRIOS is a 42 year old female. - Allergy list reviewed - Problem list reviewed - Medication list reviewed Patient is a 42 year old female who presents today for a med check and routine follow up. She got tinges of anger with little things, and feels like it is over the silliest things. Patient has been on Bupropion since May and no issues with it except having the anger issues which she didn't have before. No worsened depression. She is not using Marijuana. She feels motivated. Her dog has health problems, and has been feeling emotional over that. She is able to feel her feelings which is what she wants, but is getting angry, which concerns her. With lexapro, she felt numb, which she doesn't want. Patient feels fine otherwise, denies HOWARD, SOB, CP, n/v/d/c, suicidal thoughts, or any other concerns. Doing well with counseling through Katie Dillard. Current Medication - Magnesium Citrate 125 MG Oral Capsule takes 500mg dailyOTC, 0 days, 0 refills - [place] 3 1000 MG Oral Capsule 2 dailyOTC, 0 days, 0 refills - Vitamin B12 1000 MCG Oral Tablet Extended Release One tablet daily OTC, 0 days, 0 refills - Vitamin D 25 MCG (1000 UT) Oral Tablet One tablet daily 0 days, 0 refills Past Medical/Surgical History Reported: Exercise, LMP: 05/21/2023, and Last pap smear date 06/10/2021 result: normal. Medical: Reported recurrent infections. Tests: A mammogram was performed. : 0, para including premature delivery(s) 0, having live (s) 0, aborta including elective (s) 0, No. of Pregnancies: 0, and No. of miscarriages: 0. Other: Screening mammogram was performed 06/2022 Reviewed and unchanged since last visit. Social History Tobacco use: Tobacco use in vape, smoking electronic cigarettes, and tobacco non-user. Alcohol: Consuming 5 or more drinks per day None. Not recovering alcoholic. Drug Use: Not recovering from substance abuse. Type: Marijuana, Frequency: Daily, and Number of times used recreational drug/ prescription drug for nonmedical reason. None. Marital: Marital history single. Sexual: Sexually active with partners in the last year, has sex with females only, Have you ever had sex (vaginal or penis in anus or rectum)? Does not have vaginal sex., Does not have anal sex, and control is not practiced. Functional: [PHQ-2] Patient Health Questionnaire 2 item total score: 3 (Scale: 0-6). Allergies - Corticosteroids - Neomycin Family History Family history reviewed - unchanged since last visit Family history unchanged Paternal: Drug dependence Depression Cancer Maternal: Blood Transfusions Diabetes mellitus Review Of Systems Systemic: Not feeling tired. No fever, no chills, no night sweats, and no edema. Head: No headache. Eyes: No vision problems, no itching of the eyes, and no watery discharge from eyes. Otolaryngeal: No hearing loss, no tinnitus, no watery nasal discharge, and not blood-tinged. No nasal passage blockage (stuffiness), no sore throat, and no itchy throat. Cardiovascular: No chest pain or discomfort and no palpitations. Pulmonary: No dyspnea, not expressed as feeling short of breath, and no supine dyspnea. No cough, no hemoptysis, and no wheezing. Gastrointestinal: Normal appetite, no dysphagia, and no heartburn. No nausea, no vomiting, no abdominal pain, and no melena. No diarrhea. Genitourinary: No hematuria, no increase in urinary frequency, and no nocturia. No urinary loss of control and no dysuria. Musculoskeletal: No Limited ROM present, no back pain, no muscle aches, no localized joint pain, and no localized joint stiffness. Neurological: No dizziness, no vertigo, no fainting, no decrease in concentrating ability, and no slurred speech. No sensory disturbances, no tingling, and no numbness. Psychological: No anxiety. Depression mild, but has anger. No sleep disturbances. Skin: No pruritus. No skin lesions and no rash. Physical Findings - Vitals taken 09/06/2023 08:58 am BP-Sitting R 98/60 mmHg BP Cuff Size Regular Pulse Rate-Sitting 70 bpm Respiration Rate 22 per min Temp-Oral 97.8 F Height 66 in Weight 122 lbs 2 oz Body Mass Index 19.7 kg/m2 Body Surface Area 1.6 m2 Oxygen Saturation 99 % General Appearance: - Alert. - Well developed. - Well nourished. - Well hydrated. - In no acute distress. Head: Injuries: - No evidence of a head injury. Appearance: - Head normocephalic. Neck: Suppleness: - Neck demonstrated no decrease in suppleness. Thyroid: - Not diffusely enlarged. Eyes: General/bilateral: Pupils: - PERRLA. Ears: General/bilateral: Tympanic Membrane: - Examined. - Not bulging. - Not erythematous. - Color normal. - No loss of tympanic membrane light reflex. Right Ear: External Auditory Canal: - Normal. Left Ear: External Auditory Canal: - Normal. Nose: General/bilateral: Cavity: - Nasal mucosa moist. Pharynx: Oropharynx: - Not inflamed. Lymph Nodes: - No adenopathy. Lungs: - Respiration rhythm and depth was normal. - Clear to auscultation. Cardiovascular: - System: Heart rate and rhythm normal. Murmurs: - No murmurs were heard. Edema: - Not present. Abdomen: Auscultation: - Bowel sounds were normal. Palpation: - Abdomen was soft. - Abdominal non-tender. Musculoskeletal System: General/bilateral: - Normal movement of all extremities . No pain. Neurological: - No disorientation was observed. - Memory was unimpaired. Gait And Stance: - Normal. Psychiatric: - Mood was depressed with flat affect. - Mood was not anxious. Skin: - Mucous membranes were dry. - Normal. - No skin lesions. Tests Educational Testing: Questionnaires PHQ-9: Value PHQ-9: total score 7 Therapy - Continue current medication. Counseling/Education Plan of care discussed with patient. Understanding was verbalized by all and all questions were addressed and answered. Discussed Pt. encouraged to be compliant with current treatment. Plan StartCited - Major depressive disorder, recurrent, mild Vilazodone HCl 10 MG tablet One tablet daily, 30 days, 2 refills EndCited 1. Take Wellbutrin every other day X 2-3 weeks, then stop. 2. Starting Viibryd 10mg PO daily for depression due to getting anger with Wellbutrin. Educated on side effects. 3. Continue seeing roly Lazoor. Follow up in October or November for check up. 1) Return to the clinic if condition worsens or new symptoms arise. 2) Patient to call if problem develops. Practice Management Use of tobacco assessment performed Review of medications documented; Standardized depression screening: positive for symptoms and for adult impression and score. Care Team - DIAMOND WASSERMAN-C - Primary Care - KATIE DILLARD LCSW - Counselor - PATTI LUNA RN EDILIA BC - Obstetrics & Gynecology Health Reminders - Assess BMI satisfied 09/06/2023. - Assess Tobacco Use satisfied 09/06/2023. - Depression Screening satisfied 09/06/2023. - Follow up plan for Depression Screening satisfied 09/06/2023. - Mammogram satisfied 06/11/2022. - Medication Management satisfied 09/06/2023.
--- OUTSIDE RECORDS SUMMARY | 2024-10-13 01:30 | XMS_ITS | Clinical Summary ---
Author Organization [facility] Address [address] [place] [address] Phone Care Team Providers Care Pencil Inspector Name Role Phone KIERSTEN BEEF TAGGER-C, DEA Ayon Unavailable [phone] JEREMY ANTONIO WHEDILIA BC, PATTI Corrigan Unavailable [phone] MELISSA MELGAR MD Primary Care Provider [phone] LIA SMITH LCSW Unavailable [phone] Reason for Visit and Chief Complaint CHECK UP 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 BEEF TAGGER-C Active Last Documented On 06/24/2022 9:39AM ; [facility] Note: diagnosed by Psychiatrist Joint Pain Fingers of Right Hand 05/19/2022 RADHA Aguilera Active Last Documented On 2 11:24AM ; [facility] Nephrolithiasis 05/14/2021 DEA BURCH F EMERGENCY DEPARTMENT NURSE-C Active Last Documented On 1 11:08AM ; [facility] Major Depression Recurrent Mild 05/14/2021 CESARIO BURCH BEEF TAGGER-C Active Last Documented On 1 10:56AM ; [facility] Vitamin D Deficiency 05/14/2021 DEA CAMPBELL ERS BEEF TAGGER-C Active Last Documented On 1 11:16AM ; [facility] Plan of Treatment No Plan of Treatment Recorded Assessments Includes: Assessments from this encounter No Assessments Recorded Medical Equipment - Implanted Devices Includes: Current Devices No Medical Equipment Recorded Medications Includes: Medications discussed during this encounter and other current Medications Discontinued / Stopped on this date on 09/06/2023 Vitamin B12 1000 MCG Oral Tablet Extended Release Provider: Diagnosis: Last Documented On 3 9:22AM By Dea MELO ; [facility] buPROPion HCl ER (XL) 150 MG Oral Tablet Extended Release 24 Hour Provider: DEA MELO Diagnosis: Major depressive disorder, recurrent, mild Last Documented On 3 9:27AM By Dea MELO ; [facility] metroNIDAZOLE 500 MG Oral Tablet Provider : PATTI LUNA RN [facility] Diagnosis: Acute vaginitis Last Documented On 3 9:20AM By Dea MELO ; [facility] Escitalopram Oxalate 20 MG Oral Tablet Pr ovider: DEA MELO Diagnosis: Last Documented On 09/06/2023 8:57AM By Carmela PHILLIPS ; [facility] Current Medications (continue as prescribed) Vilazodone HCl 10 MG Oral Tablet 12/02/2023 Provider: DEA MELO Diagnosis: Major depressive disorder, recurrent, mild TAKE 1 TABLET BY MOUTH DAILY Last Documented On 4 11:39AM By Dea MELO ; [facility] [place] 3 1000 MG Oral Capsule 09/06/2023 Provider: Diagnosis: 2 dailyOTC Last Documented On 3 9:21AM By Dea MELO ; [facility] Vitamin B12 1000 MCG Oral Tablet Extended Release 08/12 Provider: Diagnosis: OTC Last Documented On 3 9:22AM By Dea MELO ; [facility] Magnesium Citrate 125 MG Oral Capsule 09/06/2023 Pro vider: Diagnosis: takes 500mg dailyOTC Last Documented On 3 9:22AM By Dea MELO ; [facility] Vitamin D 25 MCG (1000 UT) Oral Tablet 06/24/2022 Pr ovider: Diagnosis: Last Documented On 06/24/2022 9:07AM By Carmela PHILLIPS ; [facility] Medications Administered Includes: Administered Medications from this encounter No Administered Medications Recorded Results Includes: Results discussed during this encounter No Results Recorded For Specified Dates History of Present Illness Includes: History of Present Illness from this encounter No History of Present Illness Recorded Social History No Social History Recorded - [...] Active Last Documented On 4 10:54AM ; [facility] Corticosteroids Allergy 05/14/2021 Act roman Last Documented On 4 10:54AM ; [facility] Encounters Encounter Provider Location Date Check-In Time Check-Out Time Diagnosis CHECK UP DEA MELO [facility]- 09/06/2023 9:10AM 9:27AM Insurance Includes: Active Insurance Policies Plan Name Member ID Group # Subscriber Relationship Effect roman Dates 1 - [facility] [id number] RADHA Corrigan DENIS Self 04/10/2021 - Unknown Clinical Notes Includes: Clinical Notes from this encounter No Clinical Notes Recorded
--- OUTSIDE RECORDS SUMMARY | 2024-10-13 01:30 | XMS_ITS ---
Care Plan - [facility] Created on: October 13, 2024 RADHA BARRIOS Shekhar : 1980 Sex: Female Author Organization [facility] Address [address] [place] [address] Phone Care Team Providers Care Blending Line Attendant Name Role Phone KIERSTEN KAMERON, DEA Ayon Unavailable [phone] JEREMY ROSSI BC, PATTI Corrigan Unavailable [phone] MELISSA MELGAR MD Primary Care Provider [phone] LIA SMITH LCSW Unavailable [phone]
--- OUTSIDE RECORDS SUMMARY | 2024-10-13 01:31 | XMS_ITS | Encounter Summary ---
Author Organization [facility] Address [address] [facility] [place] [address] Phone Care Team Providers Care Internet Webmaster Name Role Phone Erick Ann MD Primary Care Provider [phone] Renzo MARIE MD, Anais Unavailable [phone] Encounter Details Date Type Department Care Team (Late st Contact Info) Description 05/31/2024 10:40 AM CDT Lab [facility] Oncology Services [address] [place] [address] Angy Dorsey Darling, PAC [address] [place] [address] Neutropenia, unspecified type (HCC) (Primary Dx) Discharge Disposition: Discharged to home or Selfcare Social History Tobacco Use Types Packs/Day Years Used Date Smoking Tobacco: Some Days Cigarettes Smokeless Tobacco: Never Alcohol Use Standard Drinks/Week Comments Never 0 (1 standard drink = 0.6 oz pur e alcohol) Sexually Active Control Partners Comments Yes Female Comments No Sex and Gender Information Value Date Recorded Sex Assigned at Not on file Legal Sex Female 10:08 AM CDT Gender Identity Not on file Sexual Orientation Not on file documented as of this encounter Progress Notes * Sade Mcrae RN - 05/31/2024 10:40 AM CDT Added on for labs after seeing Angy JEAN BAPTISTE. Labs drawn peripherally as ordered, tolerated well. Left in stable condition documented in this encounter Plan of Treatment Upcoming Encounters Date Type Department Care Team (Late st Contact Info) Description 02/16/2025 10:00 AM CDT [facility] - [place] [address] [place] [address] David Munoz MD [address] [place] [address] documented as of this encounter Procedures Procedure Name Priority Date/Time Associated Diagnosis Comments CBC WITH AUTO DIFFERENTIAL Routine 05/31/2024 11:00 AM CDT Neutropenia, unspecified type (HCC) PERIPHERAL BLOOD, FLOW CYTOMETRY Routine 05/31/2024 11:00 AM CDT Neutropenia, unspecified type (HCC) IMMUNOFIXATION W/ ELECTROPHORESIS SERUM Routine 05/31/2024 11:00 AM CDT Neutropenia, unspecified type (HCC) HAPTOGLOBIN Routine 05/31/2024 11:00 AM CDT Neutropenia, unspecified type (HCC) DIRECT ANTIGLOBULIN TEST (LUDWIN) Routine 05/31/2024 11:00 AM CDT Neutropenia, unspecified type (HCC) CMP (COMPREHENSIVE METABOLIC PANEL) Routine 05/31/2024 11:00 AM CDT Neutropenia, unspecified type (HCC) COMPLETE BLOOD COUNT (CBC) WITH DIFF Routine 05/31/2024 11:00 AM CDT Neutropenia, unspecified type (HCC) ANTINUCLEAR ANTIBODY (CLEMENTE) TITER Routine 05/31/2024 11:00 AM CDT Neutropenia, unspecified type (HCC) ANTINUCLEAR ANTIBODY (CLEMENTE), TITER IF POS Routine 05/31/2024 11:00 AM CDT Neutropenia, unspecified type (HCC) documented in this encounter Results * (ABNORMAL) ANTINUCLEAR ANTIBODY (CLEMENTE) TITER (05/31/2024 11:00 AM CDT) CLEMENTE TITER 1:160(A) Negative, See comment titer 06/01/2024 1:23 PM CDT [facility] Comment: Antinuclear autoantibodies detected by IFA on HEp-2 cells. Suggest follow-up testing with SHAGUFTA Panel. Serum held in Serology for one month. ??Call Laboratory if further testing is desired. CLEMENTE PATTERN SPECKLED 06/01/2024 1:23 PM CDT [facility] Blood Venipuncture / Unknown 05/31/2024 11:00 AM CDT 05/31/2024 11:00 AM CDT us Angy Dorsey PAC IMMUNOLOGY ORDERABLES Fin al Result Performing Organization Address City/State/[facility] Co de Phone Number [facility] [address] [place] [address], * (ABNORMAL) CBC WITH AUTO DIFFERENTIAL (05/31/2024 11:00 AM CDT) Pathologist [facility] WBC 3.72(L) 4.00 - 12.00 10(3)/mcL 05/31/2024 11:52 AM CDT [facility] RBC 4.39 3.80 - 5.30 10(6)/mcL 05/31/2024 11:52 AM CDT [facility] HEMOGLOBIN (HGB) 12.8 12.0 - 15.8 g/dL 05/31/2024 11:52 AM CDT [facility] HEMATOCRIT (HCT) 38.7 36.0 - 47.0 % 05/31/2024 11:52 AM CDT [facility] MCV 88.2 82.0 - 96.0 fL 05/31/2024 11:52 AM CDT [facility] MCH 29.2 26.0 - 34.0 pg 05/31/2024 11:52 AM CDT [facility] MCHC 33.1 31.0 - 36.0 g/dL 05/31/2024 11:52 AM CDT [facility] PLATELET COUNT 198 140 - 440 10(3)/[facility] 05/31/2024 11:52 AM CDT [facility] RDW 12.4 11.8 - 15.5 % 05/31/2024 11:52 AM CDT [facility] MPV 11.6 9.7 - 12.4 fL 05/31/2024 11:52 AM CDT [facility] NEUTROPHILS 58.4 47.0 - 73.0 % 05/31/2024 11:52 AM CDT [facility] LYMPHOCYTES 25.0 18.0 - 42.0 % 05/31/2024 11:52 AM CDT [facility] MONOCYTES 7.5 4.0 - 12.0 % 05/31/2024 11:52 AM CDT [facility] EOSINOPHILS 8.3(H) 0.0 - 5.0 % 05/31/2024 11:52 AM CDT [facility] BASOPHILS 0.8 0.0 - 1.0 % 05/31/2024 11:52 AM CDT [facility] ABSOLUTE NEUTROPHILS 2.17 1.60 - 7.70 10(3)/[facility] 05/31/2024 11:52 AM CDT [facility] ABSOLUTE LYMPHOCYTES 0.93(L) 1.30 - 3.20 10(3)/[facility] 05/31/2024 11:52 AM CDT [facility] ABSOLUTE MONOCYTES 0.28 0.20 - 1.00 10(3)/[facility] 05/31/2024 11:52 AM CDT [facility] ABSOLUTE EOSINOPHIL 0.31 0.00 - 0.40 10(3)/[facility] 05/31/2024 11:52 AM CDT [facility] ABSOLUTE BASOPHILS 0.03 0.00 - 0.10 10(3)/[facility] 05/31/2024 11:52 AM CDT [facility] NRBC PER 100 WBC 0 05/31/20 11:52 AM CDT [facility] Blood Venipuncture / Unknown 05/31/2024 11:00 AM CDT 05/31/2024 11:00 AM CDT us Angy Dorsey PAC HEMATOLOGY ORDERABLES Fin al Result [facility] [address] [place] [address] * (ABNORMAL) CMP (COMPREHENSIVE METABOLIC PANEL) (05/31/2024 11:00 AM CDT) SODIUM 138 136 - 145 mmol/L 05/31/2024 12:09 PM CDT [facility] POTASSIUM 4.2 3.5 - 5.1 mmol/L 05/31/2024 12:09 PM CDT [facility] CHLORIDE 107 98 - 107 mmol/L 05/31/2024 12:09 PM CDT [facility] CO2, VENOUS 23 22 - 30 mmol/L 05/31/2024 12:09 PM CDT [facility] ANION GAP 12.2 <18.0 mmol/L 05/31/2024 12:09 PM CDT [facility] GLUCOSE 94 70 - 99 mg/dL 05/31/2024 12:09 PM CDT [facility] BUN 19(H) 5 - 18 mg/dL 05/31/2024 12:09 PM CDT [facility] CREATININE, BLOOD 0.71 0.60 - 1.00 mg/dL 05/31/2024 12:09 PM CDT [facility] BUN/CREATININE RATIO 27(H) 12 - 20 ratio 05/31/2024 12:09 PM CDT [facility] TOTAL PROTEIN 7.0 6.3 - 8.2 g/dL 05/31/2024 12:09 PM CDT [facility] ALBUMIN 4.3 3.5 - 5.0 g/dL 05/31/2024 12:09 PM CDT [facility] A/G RATIO 1.6 1.0 - 2.2 05/31/2024 12:09 PM CDT [facility] CALCIUM 9.3 8.7 - 10.5 mg/dL 05/31/2024 12:09 PM CDT [facility] T BILI 0.7 0.2 - 1.2 mg/dL 05/31/2024 12:09 PM CDT [facility] SGOT (AST) 19 5 - 34 U/L 05/31/2024 12:09 PM CDT [facility] SGPT (ALT) 19 0 - 55 U/L 05/31/2024 12:09 PM CDT [facility] ALKALINE PHOSPHATASE 53 40 - 150 U/L 05/31/2024 12:09 PM CDT [facility] IS THE PATIENT REQUIRED TO BE FASTING? No 05/31/2024 12:09 PM CDT [facility] GFR, ESTIMATED >60 >=60 05/31/2024 12:09 PM CDT [facility] Comment: Creatinine Clearance is the preferred criteria for selecting drug dose adjustments in renally impaired patients. ??The GFR is provided as additional pertinent clinical information. GFR is reported in mL/min/1.73 sq m. Calculation based on the Chronic Kidney Disease Epidemiology Collaboration (CKD- EPI) equation refit without adjustment for race. GFR, EST. >60 >=60 024 12:09 PM CDT [facility] GFR, EST. NONAFRICAN >60 >=60 05/31/2024 12:09 PM CDT [facility] Blood Venipuncture / Unknown 05/31/2024 11:00 AM CDT 05/31/2024 11:00 AM CDT us Angy Dorsey PAC CHEMISTRY ORDERABLES Galilea l Result [facility] [address] [place] [address] * HAPTOGLOBIN (05/31/2024 11:00 AM CDT) HAPTOGLOBIN 55 35 - 250 mg/dL 05/31/2024 9:45 PM CDT [facility] Blood Venipuncture / Unknown 05/31/2024 11:00 AM CDT 05/31/2024 11:00 AM CDT us Angy Dorsey PAC CHEMISTRY ORDERABLES Galilea l Result [facility] [address] [place] [address], [place] * PERIPHERAL BLOOD, FLOW CYTOMETRY (05/31/2024 11:00 AM CDT) FINAL DIAGNOSIS Peripheral blood, flow cytometric analysis: - No abnormal lymphoid population or increased circulating blasts detected. 1:11 PM CDT [facility] Specimen Source Received in an EDTA anticoagulated tube is 3mL peripheral blood. 1:11 PM CDT [facility] Microscopic Description Peripheral blood smear review shows features concordant with flow cytometric findings. Specimen processed and evaluated at [place], [place]. This document was completed utilizing speech recognition software. Grammatical errors, random word insertions, pronoun errors, and incomplete sentences are an occasional consequence of this system due to software limitations, ambient noise, and hardware issues. Any formal questions or concerns about the content, text or information contained within the body of this dictation should be directly addressed to the provider for clarification. 1:11 PM CDT [facility] Immunophenotypic Findings Flow cytometric analysis shows a heterogeneous cellular population. Blasts are not increased. Immunophenotypically unremarkable/nonspeci fic T-cells (CD4:CD8 = 1.9) and polyclonal B-cells are present. CELL POPULATIONS: 65% granulocytes, 6% monocytes, 27% lymphocytes, 1% basophils, <1% blasts. Total percentage may be affected by rounding and the presence of debris signals. 1:11 PM CDT [facility] Phenotyping Markers Utilized Flow markers performed (23): CD2, CD3, CD4, CD5, CD7, CD8, CD10, CD13, CD15, CD19, CD20, CD33, CD34, CD38, CD45, CD56, CD117, CD123, CD200, kappa, lambda, HLA-DR, TCR gamma/delta This test was developed and its performance characteristics determined by [facility]. It has not been cleared or approved by the U.S. Food and Drug Administration. 4 1:11 PM CDT [facility] Case Report Flow Cytometry Repor t ? Case: [id number] ? Authorizing Provider: ??Angy Dorsey PAC ?? Collected: ? 05/31/2024 11:00 AM ? Ordering Location: ? [facility] ? Received: ?05/31/2024 11:00 AM ? [facility] - ? Cancer Center Oncology ? Services ? Pathologist: ? Rubén Gonzalez MD ? Specimen: ?Blood, Peripheral blood ? 1:11 PM CDT [facility] Blood BLOOD SPECIMEN / Unknown Venipuncture / Unknown 05/31/2024 11:00 AM CDT 05/31/2024 11:00 AM CDT us Angy Dorsey PAC PATHOLOGY/CYTOLOGY ORDERA BLES Final Result [facility] [address] [place] [address], * (ABNORMAL) IMMUNOFIXATION W/ ELECTROPHORESIS SERUM (05/31/2024 11:00 AM CDT) TOTAL PROTEIN 7.0 6.3 - 8.2 g/dL 06/01/2024 3:19 PM CDT [facility] % ALBUMIN 58.8 55.8 - 66.7 % 06/01/2024 3:19 PM CDT [facility] ALBUMIN SERUM 4.1 2.5 - 5.4 g/dL 06/01/2024 3:19 PM CDT [facility] % ALPHA 1 GLOBULIN 2.7(L) 2.9 - 4.9 % 06/01/2024 3:19 PM CDT [facility] ALPHA 1 0.2 0.2 - 0.4 g/dL 06/01/2024 3:19 PM CDT [facility] % ALPHA 2 GLOBULIN 7.8 7.1 - 11.8 % 06/01/2024 3:19 PM CDT [facility] ALPHA 2 0.5 0.5 - 1.0 g/dL 06/01/2024 3:19 PM CDT [facility] % BETA 12.4 8.4 - 13.1 % 06/01/2024 3:19 PM CDT [facility] BETA-GLOBULIN 0.9 0.5 - 1.1 g/dL 06/01/2024 3:19 PM CDT [facility] % GAMMA GLOBULIN 18.3 11.1 - 18.8 % 06/01/2024 3:19 PM CDT [facility] GAMMA 1.3 0.7 - 1.5 g/dL 06/01/2024 3:19 PM CDT [facility] IMMUNOGLOBULIN G 1,336 552 - 1,631 mg/dL 06/01/2024 3:19 PM CDT [facility] IMMUNOGLOBULIN A 209 65 - 421 mg/dL 06/01/2024 3:19 PM CDT [facility] IMMUNOGLOBULIN M 137 33 - 293 mg/dL 06/01/2024 3:19 PM CDT [facility] INTERPRETATION SERUM No abnormal protein band is detected by serum protein electrophoresis. Serum immunofixation electrophoresis is negative for monoclonal immunoglobulins. Reviewed by Montserrat Holland, Ph.D. 06/01/2024 3:19 PM CDT [facility] A/G RATIO, SERUM 1.4 06/01/20 3:19 PM CDT [facility] Blood Venipuncture / Unknown 05/31/2024 11:00 AM CDT 05/31/2024 11:00 AM CDT Narrative [facility] - 06/01/2024 3:19 PM CDT Reviewed by Inocencio Wood M.D. us Angy Dorsey PAC CHEMISTRY ORDERABLES Galilea l Result [facility] [address] [place] [address], [place] * (ABNORMAL) ANTINUCLEAR ANTIBODY (CLEMENTE), TITER IF POS (05/31/2024 11:00 AM CDT) CLEMENTE SCREEN See titer results(A) Negative titer 06/01/2024 1:22 PM CDT [facility] Blood Venipuncture / Unknown 05/31/2024 11:00 AM CDT 05/31/2024 11:00 AM CDT [facility] IMMUNOLOGY ORDERABLES Fin al Result [facility] [address] [place] [address], [place] * DIRECT ANTIGLOBULIN TEST (LUDWIN) (05/31/2024 11:00 AM CDT) LUDWIN, BRD SPEC JAK : Negative 05/31/2024 9:28 PM CDT [facility] Blood Venipuncture / Unknown 05/31/2024 11:00 AM CDT 05/31/2024 11:53 AM CDT [facility] BLOOD BANK ORDERABLES Fin al Result [facility] [address] [place] [address], [place] documented in this encounter Visit Diagnoses Diagnosis Neutropenia, unspecified type (HCC)- Primary documented in this encounter Care Teams Internet Webmaster Relationship Specialty Start Date End Date Erick Ann MD [address] [place] [id number] PCP - General Internal Medicine 06/07/23 Anais Muller III, MD [address] [place] [address] Consulting Physician Urology 06/07/23 documented as of this encounter
--- OUTSIDE RECORDS SUMMARY | 2024-10-13 01:31 | XMS_ITS | Encounter Summary ---
Author Organization [facility] Care Team Providers Care Paramedic Instructor Name Role Phone Erick Ann MD Primary Care Provider [phone] Renzo MARIE MD, Anais Vogel [phone] Encounter Details Date Type Department Care Team (Latest Contact Info) Description 06/21/2024 Travel Social History Tobacco Use Types Packs/Day Years [...] Description 02/16/2025 10:00 AM CDT Office Visit [facility] - Hematology Oncology - [place] [address] [place] [address] David Munoz MD [address] [place] [address] documented as of this encounter Visit Diagnoses Not on filedocumented in this encounter Care Teams Paramedic Instructor Relationship Specialty Start Date End Date Erick Ann MD [address] [place] [address] PCP - General Internal Medicine 06/07/23 Anais Muller III, MD [address] [facility] [place] [place] [address] Consulting Physician Urology 06/07/23 documented as of this encounter
--- OUTSIDE RECORDS SUMMARY | 2024-10-13 01:31 | XMS_ITS | Encounter Summary ---
Author Organization [facility] Address [address] [facility] [place] [address] Phone Care Team Providers Care Inspector Materials And Processes Name Role Phone Erick Ann MD Primary Care Provider [phone] Renzo MARIE MD, Anais Unavailable [phone] Reason for Referral * Radiology Services (Less Than 2 Weeks) - Closed Specialty Diagnoses / Procedures Referred By Contac t Referred To Contact Diagnoses Lymphopenia Procedures US ABDOMEN COMPLETE Angy Dorsey, PAC [address] [place] [address] Phone: tel: fax: Referral ID Status Reason Start Date Expiration Date Visits Re quested Visits Authorized [id number] Closed 06/22/2024 1 1 Reason for Visit * Reason Comments 3 weeks f/u Encounter Details Date Type Department Care Team (Late st Contact Info) Description 06/22/2024 8:45 AM CDT Office Visit [facility] Oncology Services [address] [place] [id number] Angy Dorsey PAC [address] [place] [address] Lymphopenia (Primary Dx); Elevated antinuclear antibody (CLEMENTE) level Discharge Disposition: Discharged to home or Selfcare Social History Tobacco Use Types Packs/Day Years Used Date Smoking Tobacco: Some Days Cigarettes Smokeless Tobacco: Never Tobacco Cessation:Ready to Q uit: Not Asked; Counseling Given: Not Answered Alcohol Use Standard Drinks/Week Comments Never 0 [...] Sign Reading Time Taken Comments Blood Pressure 95/61 06/22/2024 8:54 AM CDT Pulse 64 06/22/2024 8:54 AM CDT Temperature 36.4 ??C (97.5 ??F) 06/22/2024 8:54 AM CD T Respiratory Rate 18 06/22/2024 8:54 AM CDT Oxygen Saturation 99% 06/22/2024 8:54 AM CDT Inhaled Oxygen Concentration - - Weight 54 kg (119 lb) 06/22/2024 8:54 AM CDT Height 170.2 cm (5' 7 ) 06/22/2024 8:54 AM CDT Body Mass Index 18.64 06/22/2024 8:54 AM CDT documented in this encounter Patient Instructions * Patient Instructions* Angy Dorsey Darling, PAC - 06/22/2024 8:45 AM CDT See primary care regarding abnormal CLEMENTE, fatigue and body aches Ultrasound abdomen at [facility]- Repeat CBC in 1 month at [facility]. May follow up with Dr. Munoz in [place] in approximately 6 weeks to review all test results Follow up with billing to discuss your concerns PLEASE READ: If you are required to have labs/ testing done PRIOR to follow up, please have testing completed nolater than 7 days prior to appointment. If you do not have testing completed prior to your scheduled follow-up appointment you will be asked to reschedule until testing completed All patients are expected to check in with registration 15 minutes prior to all appointments. Patients who arrive 15 minutes or more after their scheduled appointment time may be required to reschedule. Please schedule follow-up in near future to discuss any concerns that were not addressed fully at today's office visit. To continue to provide excellent patient care, you may receive a survey regarding your visit today.To help us serve you better, please complete and return. These surveys are completely anonymous. If you have any concerns/ questions regarding today's visit, please call. If you experience any new or worsening symptoms, please call or go to the emergency department. documented in this encounter Progress Notes * Angy Dorsey PAC - 06/22/2024 8:45 AM CDT Outpatient Hem/Onc Progress Note Ibeth Mera is a 43 y.o. female who presents for 3 week follow-up for lymphopenia, review labs. Continues with general malaise and fatigue as well as body aches. States she continues to struggle with frequent recurrent UTIs and kidney stones. Primarily as distressed relating to her SOB she received from her insurance. Reports she has contacted billing. ALLERGIES: Allergies Allergen Reactions Corticosteroids Unknown Neomycin Unknown MEDICATIONS: Current Outpatient Medications Medication Sig Dispense Refill allopurinol (ZYLOPRIM) 100 MG Tablet Take 100 mg by mouth daily. Cyanocobalamin (VITAMIN B12 PO) Take by mouth. MAGNESIUM CITRATE PO Take 500 mg by mouth. [place]-3 Fatty Acids (OMEGA 3 PO) Take by mouth. other by Other route 2 times daily. [place] triamcinolone (KENALOG) 0.1 % Cream Apply 2 times daily. Application Site: apply twice a day to poison keegan rash on stomach ,arms and legs until heal (Description and Location) Vilazodone HCl 10 MG Tablet Take by mouth daily. Vitamin D3 (Vitamin D) 1000 UNIT Tablet Take 25 mcg by mouth daily. No current facility-administered medications for this visit. PMS/H: History reviewed. No pertinent past medical history. No past surgical history on file. SOCIAL: Social History Socioeconomic History Marital status: Single Spouse name: Not on file Number of children: Not on file Years of education: Not on file Highest education level: Not on file Occupational History Not on file Tobacco Use Smoking status: Some Days Types: Cigarettes Smokeless tobacco: Never Vaping Use Vaping status: Every Day Substance and Sexual Activity Alcohol use: Never Drug use: Yes Types: Marijuana Sexual activity: Yes Partners: Female Other Topics Concern Not on file Social History Narrative Not on file Social Determinants of Health Financial Resource Needs: Not on file Food Insecurity Needs: Not on file Transportation Needs: Not on file Physical Activity: Not on file Stress: Not on file Social Integration: Not on file Intimate Partner Violence: Not on file Housing Stability: Not on file FAMILY HX: No family history on file. VITAL SIGNS: Vitals: 06/22/24 0854 BP: 95/61 Pulse: 64 Resp: 18 Temp: 97.5 ??F (36.4 ??C) TempSrc: Temporal SpO2: 99% Weight: 119 lb (54 kg) Height: 5' 7 (1.702 m) GENERAL EXAM: GENERAL: Well developed, well nourished, in no acute distress. AAO x3. Cooperative. HEENT: Normocephalic. PERRLA. Nonicteric. NECK: Supple/ non tender/ full ROM LYMPH NODES: No adenopathy. CARDIOVASCULAR: RRR/ S1S2/ No m/g/c/r. PULMONARY: Respirations easy and regular. Breath sounds clear bilaterally. No rhonchi/ rales/ wheezes. ABD: Soft, nontender. No hepatosplenomegaly. Bowel sounds normoactive. MUSCULOSKELETAL: Normal gait and movement of extremities. SKIN: General-warm, pink and dry. No rashes/ lesions. PSYCHIATRIC: Euthymic. Affect congruent with mood. Normal thought process. DATA: Results for orders placed or performed in visit on 05/31/24 ANTINUCLEAR ANTIBODY (CLEMENTE), TITER IF POS Result Value Ref Range CLEMENTE SCREEN See titer results (A) Negative titer IMMUNOFIXATION W/ ELECTROPHORESIS SERUM Result Value Ref Range TOTAL PROTEIN 7.0 6.3 - 8.2 g/dL % ALBUMIN 58.8 55.8 - 66.7 % ALBUMIN SERUM 4.1 2.5 - 5.4 g/dL % ALPHA 1 GLOBULIN 2.7 (L) 2.9 - 4.9 % ALPHA 1 0.2 0.2 - 0.4 g/dL % ALPHA 2 GLOBULIN 7.8 7.1 - 11.8 % ALPHA 2 0.5 0.5 - 1.0 g/dL % BETA 12.4 8.4 - 13.1 % BETA-GLOBULIN 0.9 0.5 - 1.1 g/dL % GAMMA GLOBULIN 18.3 11.1 - 18.8 % GAMMA 1.3 0.7 - 1.5 g/dL IMMUNOGLOBULIN G 1,336 552 - 1,631 mg/dL IMMUNOGLOBULIN A 209 65 - 421 mg/dL IMMUNOGLOBULIN M 137 33 - 293 mg/dL INTERPRETATION SERUM No abnormal protein band is detected by serum protein electrophoresis. Serum immunofixation electrophoresis is negative for monoclonal immunoglobulins. Reviewed by Montserrat Holland, Ph.D. A/G RATIO, SERUM 1.4 HAPTOGLOBIN Result Value Ref Range HAPTOGLOBIN 55 35 - 250 mg/dL CMP (COMPREHENSIVE METABOLIC PANEL) Result Value Ref Range SODIUM 138 136 - 145 mmol/L POTASSIUM 4.2 3.5 - 5.1 mmol/L CHLORIDE 107 98 - 107 mmol/L CO2, VENOUS 23 22 - 30 mmol/L ANION GAP 12.2 <18.0 mmol/L GLUCOSE 94 70 - 99 mg/dL BUN 19 (H) 5 - 18 mg/dL CREATININE, BLOOD 0.71 0.60 - 1.00 mg/dL BUN/CREATININE RATIO 27 (H) 12 - 20 ratio TOTAL PROTEIN 7.0 6.3 - 8.2 g/dL ALBUMIN 4.3 3.5 - 5.0 g/dL A/G RATIO 1.6 1.0 - 2.2 CALCIUM 9.3 8.7 - 10.5 mg/dL T BILI 0.7 0.2 - 1.2 mg/dL SGOT (AST) 19 5 - 34 U/L SGPT (ALT) 19 0 - 55 U/L ALKALINE PHOSPHATASE 53 40 - 150 U/L IS THE PATIENT REQUIRED TO BE FASTING? No GFR, ESTIMATED >60 >=60 GFR, EST. >60 >=60 GFR, EST. NONAFRICAN >60 >=60 ANTINUCLEAR ANTIBODY (CLEMENTE) TITER Result Value Ref Range CLEMENTE TITER 1:160 (A) Negative, See comment titer CLEMENTE PATTERN SPECKLED DIRECT ANTIGLOBULIN TEST (LUDWIN) Result Value Ref Range LUDWIN, BRD SPEC JAK : Negative PERIPHERAL BLOOD, FLOW CYTOMETRY Result Value Ref Range FINAL DIAGNOSIS Peripheral blood, flow cytometric analysis: - No abnormal lymphoid population or increased circulating blasts detected. Specimen Source Received in an EDTA anticoagulated tube is 3mL peripheral blood. Microscopic Description Peripheral blood smear review shows features concordant with flow cytometric findings. Specimen processed and evaluated at [facility], [place], [place]. This document was completed utilizing speech recognition software. Grammatical errors, random word insertions, pronoun errors, and incomplete sentences are an occasional consequence of this system due to software limitations, ambient noise, and hardware issues. Any formal questions or concerns about the content, text or information contained within the body of this dictation should be directly addressed to the provider for clarification. Immunophenotypic Findings Flow cytometric analysis shows a heterogeneous cellular population. Blasts are not increased. Immunophenotypically unremarkable/nonspecific T-cells (CD4:CD8 = 1.9) and polyclonal B-cells are present. CELL POPULATIONS: 65% granulocytes, 6% monocytes, 27% lymphocytes, 1% basophils, <1% blasts. Total percentage may be affected by rounding and the presence of debris signals. Phenotyping Markers Utilized Flow markers performed (23): CD2, CD3, CD4, CD5, CD7, CD8, CD10, CD13, CD15, CD19, CD20, CD33, CD34, CD38, CD45, CD56, CD117, CD123, CD200, kappa, lambda, HLA-DR, TCR gamma/delta This test was developed and its performance characteristics determined by [facility]. Ithas not been cleared or approved by the U.S. Food and Drug Administration. Case Report Flow Cytometry Report Case: [id number] Authorizing Provider: Angy Dorsey PAC Collected: 05/31/2024 11:00 AM Ordering Location: [facility] Received: 05/31/2024 11:00 AM [facility] Oncology Services Pathologist: Rubén Gonzalez MD Specimen: Blood, Peripheral blood CBC WITH AUTO DIFFERENTIAL Result Value Ref Range WBC 3.72 (L) 4.00 - 12.00 10(3)/mcL RBC 4.39 3.80 - 5.30 10(6)/mcL HEMOGLOBIN (HGB) 12.8 12.0 - 15.8 g/dL HEMATOCRIT (HCT) 38.7 36.0 - 47.0 % MCV 88.2 82.0 - 96.0 fL MCH 29.2 26.0 - 34.0 pg MCHC 33.1 31.0 - 36.0 g/dL PLATELET COUNT 198 140 - 440 10(3)/mcL RDW 12.4 11.8 - 15.5 % MPV 11.6 9.7 - 12.4 fL NEUTROPHILS 58.4 47.0 - 73.0 % LYMPHOCYTES 25.0 18.0 - 42.0 % MONOCYTES 7.5 4.0 - 12.0 % EOSINOPHILS 8.3 (H) 0.0 - 5.0 % BASOPHILS 0.8 0.0 - 1.0 % ABSOLUTE NEUTROPHILS 2.17 1.60 - 7.70 10(3)/mcL ABSOLUTE LYMPHOCYTES 0.93 (L) 1.30 - 3.20 10(3)/mcL ABSOLUTE MONOCYTES 0.28 0.20 - 1.00 10(3)/mcL ABSOLUTE EOSINOPHIL 0.31 0.00 - 0.40 10(3)/mcL ABSOLUTE BASOPHILS 0.03 0.00 - 0.10 10(3)/mcL NRBC PER 100 WBC 0 Assessment: Diagnoses and all orders for this visit: Lymphopenia - COMPLETE BLOOD COUNT (CBC) WITH DIFF; Future - US ABDOMEN COMPLETE; Future Elevated antinuclear antibody (CLEMENTE) level Plan: Reviewed and discussed above results. Reassured no significant abnormality except elevated CLEMENTE. Recommend proceeding with ultrasound to evaluate for any hepatosplenomegaly that may be contributing to early destruction of white blood cells. Did discuss further evaluation of elevated CLEMENTE -prefers to follow up with primary care. Ultrasound abdomen at [facility]- Repeat CBC in 1 month at [facility] May follow up with Dr. Munoz in [place] in approximately 6 weeks to review all test results Diagnoses and all orders for this visit: Lymphopenia - COMPLETE BLOOD COUNT (CBC) WITH DIFF; Future - US ABDOMEN COMPLETE; Future Elevated antinuclear antibody (CLEMENTE) level Return in about 6 weeks (around 08/03/2024) for Lymphocytopenia, Review labs/ tests after completed. The patient was given an opportunity to ask questions, and all questions answered to patient's satisfaction. Patient verbalizes understanding of the plan as outlined above. Patient Instructions See primary care regarding abnormal CLEMENTE, fatigue and body aches Ultrasound abdomen at [facility]- Repeat CBC in 1 month at [facility] May follow up with Dr. Munoz in [place] in approximately 6 weeks to review all test results Follow up with billing to discuss your concerns PLEASE READ: If you are required to have labs/ testing done PRIOR to follow up, please have testing completed nolater than 7 days prior to appointment. If you do not have testing completed prior to your scheduled follow-up appointment you will be asked to reschedule until testing completed All patients are expected to check in with registration 15 minutes prior to all appointments. Patients who arrive 15 minutes or more after their scheduled appointment time may be required to reschedule. Please schedule follow-up in near future to discuss any concerns that were not addressed fully at today's office visit. To continue to provide excellent patient care, you may receive a survey regarding your visit today.To help us serve you better, please complete and return. These surveys are completely anonymous. If you have any concerns/ questions regarding today's visit, please call. If you experience any new or worsening symptoms, please call or go to the emergency department. * Angy Dorsey PAC - 06/22/2024 8:45 AM CDT Please advise results are normal. documented in this encounter Miscellaneous Notes * Interdisciplinary - Mayi Garrett CMA - 06/22/2024 8:45 AM CDT Pt here for follow up visit no pain no falls appetite is good * Interdisciplinary - Mayi Garrett CMA - 06/22/2024 8:45 AM CDT Pt given AVS with follow up visit to [facility] labs and prior to visit documented in this encounter Plan of Treatment Upcoming Encounters Date Type Department Care Team (Late st Contact Info) Description 02/16/2025 10:00 AM CDT Office Visit [facility] - Hematology Oncology - [place] [address] [place] [phone] David Munoz MD [address] [place] [address] documented as of this encounter Procedures Procedure Name Priority Date/Time Associated Diagnosis Comments COMPLETE BLOOD COUNT (CBC) WITH DIFF Routine 08/17/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 12: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 Lymphopenia US ABDOMEN COMPLETE Less Than 2 weeks 07/11/2024 12:00 AM CDT Lymphopenia documented in this encounter Results * COMPLETE BLOOD COUNT (CBC) WITH DIFF (08/17/2024 12:00 AM 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) Blood [facility] HEMATOLOGY ORDERABLES Fin al Result SCAN * US ABDOMEN COMPLETE (07/11/2024 12:00 AM CDT) Anatomical Region Laterality Modality Abdomen N/A Other 07/11/2024 us Angy [facility] PAC IMG US ORDERABLES Final R esult documented in this encounter Visit Diagnoses Diagnosis Lymphopenia- Primary Lymphocytopenia Elevated antinuclear antibody (CLEMENTE) level Other and unspecified nonspecific immunological findings documented in this encounter Care Teams Inspector Materials And Processes Relationship Specialty Start Date End Date Erick Ann MD [address] [place] [address] PCP - General Internal Medicine 06/07/23 Anais Muller III, MD [address] [place] [address] Consulting Physician Urology 06/07/23 documented as of this encounter
--- OUTSIDE RECORDS SUMMARY | 2024-10-13 01:31 | XMS_ITS | Encounter Summary ---
Author Organization [facility] Care Team Providers Care Oenologist Name Role Phone Erick Ann MD Primary Care Provider [phone] Renzo MARIE MD, Anais Vogel [phone] Encounter Details Date Type Department Care Team (Latest Contact Info) Description 05/31/2024 Travel Social History Tobacco Use Types Packs/Day [...] Description 02/16/2025 10:00 AM CDT Office Visit [facility] - Hematology Oncology - [place] [address] [place] [address] David Munoz MD [address] [place] [address] documented as of this encounter Visit Diagnoses Not on filedocumented in this encounter Care Teams Oenologist Relationship Specialty Start Date End Date Erick Ann MD [address] [place] [address] PCP - General Internal Medicine 06/07/23 Anais Muller III, MD [address] [facility] [place] [address] Consulting Physician Urology 06/07/23 documented as of this encounter
--- OUTSIDE RECORDS SUMMARY | 2024-10-13 01:31 | XMS_ITS | Encounter Summary ---
Author Organization [facility] Address [address] [facility] [place] [address] Phone Care Team Providers Care Room Service Clerk Name Role Phone Erick Ann MD Primary Care Provider [phone] Renzo MARIE MD, Anais Vogel [phone] Reason for Referral * Radiology Services (Routine) - Closed Specialty Diagnoses / Procedures Referred By Bisi miguel Referred To Contact Radiology Diagnoses Bilateral renal stones Procedures XR ABDOMEN KUB FLAT PLATE Anais Muller III, MD [address] [place] [address] Phone: tel: fax: Referral ID Status Reason Start Date Expiration Date Visits Re quested Visits Authorized [id number] Closed 06/07/2023 1 1 Reason for Visit * Radiology Services (Routine) - Closed Specialty Diagnoses / Procedures Referred By Bisi migeul Referred To Contact Radiology Diagnoses Bilateral renal stones Procedures XR ABDOMEN KUB FLAT PLATE Anais Muller III, MD [address] [place] [address] Phone: tel: fax: Referral ID Status Reason Start Date Expiration Date Visits Re quested Visits Authorized [id number] Closed 06/07/2023 1 1 Encounter Details Date Type Department Care Team (Latest Contact Info) Description 08/10/2023 10:28 AM CDT - 08/10/2023 11:59 PM CDT Hospital En[facility] Diagnostic Radiology [address] [facility] [place] [address] Anais Muller III, MD [address] [place] [address] Discharge Disposition: Discharged to home or Selfcare Social History Tobacco Use Types Packs/Day Years Used Date Smoking Tobacco: Some Days Cigarettes Smokeless Tobacco: Never Alcohol Use Standard Drinks/Week Comments Never 0 (1 standard drink = 0.6 oz pur e alcohol) Sexually Active Control Partners Comments Yes Female Comments Unknown Sex and Gender Information Value Date Recorded Sex Assigned at Not on file Legal Sex Female 10:08 AM CDT Gender Identity Not on file Sexual Orientation Not on file COVID-19 Exposure Response Date Recorded In the last 10 days, have yo u been in contact with someone who was confirmed or suspected to have Coronavirus/COVID-19? No / Unsure 08/10/2023 10:24 AM CDT documented as of this encounter Medications at Time of Discharge Cyanocobalamin (VITAMIN B12 PO) Take by mouth. MAGNESIUM CITRATE PO Take 500 mg by mouth. [place]-3 Fatty Acids (OMEGA 3 PO) Take by mouth. triamcinolone (KENALOG) 0.1 % Cream Apply 2 times daily. Application Site: apply twice a day to poison keegan rash on stomach ,arms and legs until heal (Description and Location) Vitamin D3 (Vitamin D) 1000 UNIT Tablet Take 25 mcg by mouth daily. buPROPion (WELLBUTRIN) 150 MG XL tablet 06/07/2023 escitalopram (LEXAPRO) 20 MG Tablet Take 20 mg by mouth daily. 4 documented as of this encounter Plan of Treatment Upcoming Encounters Date Type Department Care Team (Late st Contact Info) Description 02/16/2025 10:00 AM CDT Office Visit [facility] - Hematology Oncology - [address] [phone] David Munoz MD [address] [place] [address] documented as of this encounter Procedures Procedure Name Priority Date/Time Associated Diagnosis Comments XR ABDOMEN KUB FLAT PLATE Routine 08/10/2023 10:34 AM CDT Bilateral renal stones documented in this encounter Results * XR ABDOMEN KUB FLAT PLATE (08/10/2023 10:34 AM CDT) Anatomical Region Laterality Modality Abdomen N/A Digital Radiogra phy 08/11/2023 8:08 AM CDT Impressions 08/11/2023 8:11 AM CDT IMPRESSION: Bilateral nephrolithiasis. Narrative 08/11/2023 8:11 AM CDT EXAM DESCRIPTION: ?? XR ABDOMEN KUB FLAT PLATE REASON FOR STUDY: ?? Follow-up of nephrolithiasis from May 2023. ?? TECHNIQUE: Supine ??radiographic view of the abdomen. COMPARISON: ?? Renal ultrasound 07/28/2023 FINDINGS: BOWEL: ??Nonobstructive gas pattern. ??No dilated loops of bowel to suggest obstruction. SOFT TISSUES: ??There are calcifications projecting over the right renal shadow, at least 4. ??The largest measures 3 mm. ??Larger calcifications project over the left kidney measuring up to 5 mm. ?? No calcifications over the paths of the ureters. LINES/TUBES: ??None. BONES: ??No acute osseous abnormality. THIS IS AN ELECTRONICALLY VERIFIED FINAL REPORT 08/11/2023 8:08 AM - Electronically signed by ??Bernabe Santiago M.D. LB: KARLEE D: ??08/11/2023 8:08 AM T: ??08/11/2023 8:08 AM Report ID: [id number] Reading Location: ??[id number] Procedure Note Bernabe Santiago MD - 08/11/2023 EXAM DESCRIPTION: XR ABDOMEN KUB FLAT PLATE REASON FOR STUDY: Follow-up of nephrolithiasis from May 2023. TECHNIQUE: Supine radiographic view of the abdomen. COMPARISON: Renal ultrasound 07/28/2023 FINDINGS: BOWEL: Nonobstructive gas pattern. No dilated loops of bowel to suggest obstruction. SOFT TISSUES: There are calcifications projecting over the right renal shadow, at least 4. The largest measures 3 mm. Larger calcifications project over the left kidney measuring up to 5 mm. No calcifications over the paths of the ureters. LINES/TUBES: None. BONES: No acute osseous abnormality. THIS IS AN ELECTRONICALLY VERIFIED FINAL REPORT 08/11/2023 8:08 AM - Electronically signed by Bernabe Santiago M.D. LB: KARLEE Report ID: [id number] Reading Location: [id number] IMPRESSION: Bilateral nephrolithiasis. Anais Muller III, MD IMG DIAGNOSTIC ORDERABLE S Final Result documented in this encounter Visit Diagnoses Diagnosis Bilateral renal stones documented in this encounter Care Teams Room Service Clerk Relationship Specialty Start Date End Date Erick Ann MD [address] [place] [id number] PCP - General Internal Medicine 06/07/23 Anais Muller III, MD [address] [place] [address] Consulting Physician Urology 06/07/23 documented as of this encounter
--- OUTSIDE RECORDS SUMMARY | 2024-10-13 01:31 | XMS_ITS | Encounter Summary ---
Author Organization [facility] Address [address] [facility] [place] [address] Phone Care Team Providers Care Criminal Justice Department Chair Name Role Phone Erick Ann MD Primary Care Provider [phone] Renzo MARIE MD, Anais Vogel [phone] Reason for Referral * Radiology Services (Routine) - Closed Specialty Diagnoses / Procedures Referred By Bisi miguel Referred To Contact Radiology Diagnoses Nephrolithiasis Procedures US RENAL COMPLETE Anais Muller III, MD [address] [place] [address] Phone: tel: fax: Referral ID Status Reason Start Date Expiration Date Visits Re quested Visits Authorized [id number] Closed 07/02/2023 1 1 Reason for Visit * Radiology Services (Routine) - Closed Specialty Diagnoses / Procedures Referred By Bisi miguel Referred To Contact Radiology Diagnoses Nephrolithiasis Procedures US RENAL COMPLETE Anais Muller III, MD [address] [place] [address] Phone: tel: fax: Referral ID Status Reason Start Date Expiration Date Visits Re quested Visits Authorized [id number] Closed 07/02/2023 1 1 Encounter Details Date Type Department Care Team (Latest Contact Info) Description 07/28/2023 1:56 PM CDT - 07/28/2023 11:59 PM CDT Hospital Encounter [facility] Ultrasound [address] [place] [address] Anais Muller III, MD [address] [place] [address] Discharge Disposition: Discharged to home or Selfcare [...] suspected to have Coronavirus/COVID-19? No / Unsure 07/27/2023 7:17 PM CDT documented as of this encounter Medications at Time of Discharge Cyanocobalamin (VITAMIN B12 PO) Take by mouth. MAGNESIUM CITRATE PO Take 500 mg by mouth. [employer]-3 Fatty Acids (OMEGA 3 PO) Take by [...] Description 02/16/2025 10:00 AM CDT Office Visit [facility] - Hematology Oncology [address] [phone] David Munoz MD [address] [place] [address] documented as of this encounter Procedures Procedure Name Priority Date/Time Associated Diagnosis Comments US RENAL COMPLETE Routine 07/28/2023 2:2 7 PM CDT Nephrolithiasis documented in this encounter Results * US RENAL COMPLETE (07/28/2023 2:27 PM CDT) Anatomical Region Laterality Modality , Abdomen N/A Ultrasound 07/29/2023 1:13 AM CDT Impressions 07/29/2023 1:16 AM CDT IMPRESSION: Bilateral nephrolithiasis. No hydronephrosis. The bladder was empty for the examination and therefore can not be evaluated. Narrative 07/29/2023 1:16 AM CDT EXAM DESCRIPTION: US RENAL COMPLETE REASON FOR STUDY: Nephrolithiasis, follow-up TECHNIQUE: Ultrasound of the kidneys and urinary bladder was performed with grayscale imaging. COMPARISON: None FINDINGS: RIGHT KIDNEY: The right kidney measures ??12.2 cm in length. ??There is no hydronephrosis. There is normal cortical thickness and echogenicity. ?? Multiple shadowing nonobstructing stones right kidney, with the largest measuring 5 mm in the lower pole. LEFT KIDNEY: The left kidney measures ??12.6 cm in length. ??There is no hydronephrosis. There is normal cortical thickness and echogenicity. ?? Multiple shadowing nonobstructing stones left kidney, with the largest measuring 9 mm in the lower pole. URINARY BLADDER: ?? The bladder was empty for the examination and therefore can not be evaluated. OTHER: ?? No other additional findings. THIS IS AN ELECTRONICALLY VERIFIED FINAL REPORT 07/29/2023 1:13 AM - Electronically signed by ??Richie Hidalgo M.D. KT: [email or web address] D: ??07/29/2023 1:13 AM T: ??07/29/2023 1:13 AM Report ID: [id number] Reading Location: ??[id number] Procedure Note Richie Hidalgo MD - 07/29/2023 EXAM DESCRIPTION: US RENAL COMPLETE REASON FOR STUDY: Nephrolithiasis, follow-up TECHNIQUE: Ultrasound of the kidneys and urinary bladder was performed with grayscale imaging. COMPARISON: None FINDINGS: RIGHT KIDNEY: The right kidney measures 12.2 cm in length. There is no hydronephrosis. There is normal cortical thickness and echogenicity. Multiple shadowing nonobstructing stones right kidney, with the largest measuring 5 mm in the lower pole. LEFT KIDNEY: The left kidney measures 12.6 cm in length. There is no hydronephrosis. There is normal cortical thickness and echogenicity. Multiple shadowing nonobstructing stones left kidney, with the largest measuring 9 mm in the lower pole. URINARY BLADDER: The bladder was empty for the examination and therefore can not be evaluated. OTHER: No other additional findings. THIS IS AN ELECTRONICALLY VERIFIED FINAL REPORT 07/29/2023 1:13 AM - Electronically signed by Richie Hidalgo M.D. KT: BREEZY Report ID: [id number] Reading Location: [place] [address] IMPRESSION: Bilateral nephrolithiasis. No hydronephrosis. The bladder was empty for the examination and therefore can not be evaluated. Anais Muller III, MD IMG US ORDERABLES Final Result documented in this encounter Visit Diagnoses Diagnosis Nephrolithiasis Calculus of kidney documented in this encounter Care Teams Criminal Justice Department Chair Relationship Specialty Start Date End Date Erick Ann MD [address] [place] [address] PCP - General Internal Medicine 06/07/23 Anais Muller III, MD [address] [place] [address] Consulting Physician Urology 06/07/23 documented as of this encounter
--- OUTSIDE RECORDS SUMMARY | 2024-10-13 01:31 | XMS_ITS | Encounter Summary ---
Author Organization [facility] Care Team Providers Care Senior Credit Officer Name Role Phone Erick Ann MD Primary Care Provider [phone] Renzo MARIE MD, Anais Unavailable [phone] Encounter Details Date Type Department Care Team (Latest Contact Info) Description 07/27/2023 Travel Social History Tobacco Use Types Packs/Day [...] PM CDT documented as of this encounter Plan of Treatment Upcoming Encounters Date Type Department Care Team (Late st Contact Info) Description 02/16/2025 10:00 AM CDT Office Visit [facility] - Hematology Oncology - [place] [address] [place] [address] [place] [address] [place] [address] documented as of this encounter Visit Diagnoses Not on filedocumented in this encounter Care Teams Senior Credit Officer Relationship Specialty Start Date End Date Erick Ann MD [address] [place] [address] PCP - General Internal Medicine 06/07/23 Anais Muller III, MD [address] [place] [address] Consulting Physician Urology 06/07/23 documented as of this encounter
--- OUTSIDE RECORDS SUMMARY | 2024-10-13 01:31 | XMS_ITS | Encounter Summary ---
Author Organization [facility] Care Team Providers Care Outside Energy Sales Representatives Name Role Phone Erick Ann MD Primary Care Provider [phone] Renzo MARIE MD, Anais Vogel [phone] Encounter Details Date Type Department Care Team (Latest Contact Info) Description 08/18/2024 Travel Social History Tobacco Use Types Packs/Day [...] Description 02/16/2025 10:00 AM CDT Office Visit [facility] - Hematology Oncology - [place] [address] [place] [address] David Munoz MD [address] [place] [address] documented as of this encounter Visit Diagnoses Not on filedocumented in this encounter Care Teams Outside Energy Sales Representatives Relationship Specialty Start Date End Date Erick Ann MD [address] [place] [address] PCP - General Internal Medicine 06/07/23 Anais Muller III, MD #[address] [facility] [place] [address] Consulting Physician Urology 06/07/23 documented as of this encounter
--- OUTSIDE RECORDS SUMMARY | 2024-10-13 01:31 | XMS_ITS | Encounter Summary ---
Author Organization [facility] Address [address] [facility] [place] [address] Phone Care Team Providers Care Auto Technician Name Role Phone Erick Ann MD Primary Care Provider [phone] Renzo MARIE MD, Anais Unavailable [phone] Reason for Visit * Reason Onset Date Comments Referral 09/19/2024 Encounter Details Date Type Department Care Team (Late st Contact Info) Description 09/19/2024 Telephone [facility] [address] [place] [phone] David Munoz MD [address] [place] [address] Referral Social History Tobacco Use Types Packs/Day [...] encounter Miscellaneous Notes * Telephone Encounter - David Munoz MD - 09/21/2024 11:03 AM USABILITY ENGINEER Note signed. Please have them process the referral now. Thank you ILITY ENGINEER * Telephone Encounter - Mima Acosta - 09/19/2024 10:35 AM CST SITUATION: Insurance / Payor requesting provider review Rheumatology Referral. BACKGROUND: Referral unable to be processed. ASSESSMENT: Request for provider review due to the following reason(s): Unsiged notes RECOMMENDATION: Based on the above information the provider has the following option(s): Please sign office visit dated 08/18/2024 to process referral. Mima Acosta [facility] - Referrals opt 7 ILITY ENGINEER documented in this encounter Plan of Treatment Upcoming Encounters Date Type Department Care Team (Late st Contact Info) Description 02/16/2025 10:00 AM CDT Office Visit [facility] - Hematology Oncology [address] [phone] David Munoz MD [address] [place] [address] documented as of this encounter Visit Diagnoses Not on filedocumented in this encounter Care Teams Auto Technician Relationship Specialty Start Date End Date Erick Ann MD [address] [place] [address] PCP - General Internal Medicine 06/07/23 Anais Muller III, MD [address] [place] [address] Consulting Physician Urology 06/07/23 documented as of this encounter
--- OUTSIDE RECORDS SUMMARY | 2024-10-13 01:31 | XMS_ITS | Encounter Summary ---
Author Organization [facility] Address [address] [facility] [place] [address] Phone Care Team Providers Care Instructor Bridge Name Role Phone Erick Ann MD Primary Care Provider [phone] Renzo MARIE MD, Anais Unavailable [phone] Encounter Details Date Type Department Care Team (Late st Contact Info) Description 07/11/2024 Telephone [facility] Cancer [facility] Oncology Services [address] [place] [phone] Angy Dorsey Darling, PAC [address] [place] [address] Social History Tobacco Use Types Packs/Day Years [...] encounter Miscellaneous Notes * Telephone Encounter - Sakina Maldonado RN - 07/11/2024 1:54 PM CDT Called pt about normal Abdominal ultrasound. Pt is still concerned with having a low WBC, heart palpitations and continuous UTI's. Per Angy, we are going to continue to follow her blood tests. If pt is still having palpitations and UTI's pt if to refer to her fieldwork coordinator. Pt states understanding. Pt states she will be doing a repeat blood test within a week and wants to figure out what is going on with her low WBC. Pt advised to seek help if she has new or worsening pains. Pt states understanding. documented in this encounter Plan of Treatment Upcoming Encounters Date Type Department Care Team (Late st Contact Info) Description 02/16/2025 10:00 AM CDT Office Visit [facility] - Hematology Oncology - [place] [address] [place] [address] David Munoz MD [address] [place] [address] documented as of this encounter Visit Diagnoses Not on filedocumented in this encounter Care Teams Instructor Bridge Relationship Specialty Start Date End Date Erick Ann MD [address] [place] [address] PCP - General Internal Medicine 06/07/23 Anais Muller III, MD [address] [place] [address] Consulting Physician Urology 06/07/23 documented as of this encounter
--- OUTSIDE RECORDS SUMMARY | 2024-10-13 01:31 | XMS_ITS | Encounter Summary ---
Author Organization [facility] Care Team Providers Care Center Director Name Role Phone Erick Ann MD Primary Care Provider [phone] Renzo MARIE MD, Anais Vogel [phone] Encounter Details Date Type Department Care Team (Latest Contact Info) Description 06/22/2024 Travel Social History Tobacco Use Types Packs/Day [...] Description 02/16/2025 10:00 AM CDT Office Visit [facility] - Hematology Oncology - [place] [address] [place] [address] David Munoz MD [address] [place] [address] documented as of this encounter Visit Diagnoses Not on filedocumented in this encounter Care Teams Center Director Relationship Specialty Start Date End Date Erick Ann MD [address] [place] [address] PCP - General Internal Medicine 06/07/23 Anais Muller III, MD [address] [place] [address] Consulting Physician Urology 06/07/23 documented as of this encounter
--- OUTSIDE RECORDS SUMMARY | 2024-10-13 01:31 | XMS_ITS | Clinical Summary ---
Author Organization [facility] Address [address] [place] [address] Phone Care Team Providers Care Taxi Servicer Name Role Phone Erick Ann MD Primary Care Provider [phone] Renzo MARIE MD, Anais Unavailable Allergies Active Allergy Reactions Criticality Noted Date Comments Corticosteroids Unknown 06/07/2023 Neomycin Unknown 06/07/2023 Medications Vitamin D3 (Vitamin D) 1000 UNIT Tablet Take 25 mcg by mouth daily. Active triamcinolone (KENALOG) 0.1 % Cream Apply 2 times daily. Application Site: apply twice a day to poison ke[place] rash on stomach ,arms and legs until heal (Description and Location) Active MAGNESIUM CITRATE PO Take 500 mg by mouth. Active Cyanocobalamin (VITAMIN B12 PO) Take by mouth. Activ e [place]-3 Fatty Acids (OMEGA 3 PO) Take by mouth. Activ e Vilazodone HCl 10 MG Tablet Take by mouth daily. Active allopurinol (ZYLOPRIM) 100 MG Tablet Take 100 mg by mouth daily. Active other by Other route 2 times daily. U[place]ora Active Active Problems Problem Noted Date Diagnosed Date Lymphopenia 06/22/2024 Elevated antinuclear antibody (CLEMENTE) level 2023 Neutropenia 05/31/2024 Encounters Date Type Department Care Team Description 09/19/2024 Telephone [facility] [address] [place] [phone] David Munoz MD Referral 09/18/2024 Telephone [facility] [address] [place] [address] David Munoz MD Referral 09/12/2024 Telephone [facility] Call Center [address] [place] [address] David Munoz MD Referral 08/18/2024 10:45 AM SHELL CORE AND MOLDING SUPERVISOR Office Visit [facility] Hematology Oncology [address] [phone] David Munoz MD Lymphopenia (Primary Dx); Other drug-induced neutropenia (HCC); Elevated antinuclear antibody (CLEMENTE) level Discharge Disposition: Discharged to home or Selfcare 08/18/2024 Travel from Last 3 Months Social History Tobacco [...] Sign Reading Time Taken Comments Blood Pressure 108/64 08/18/2024 10:48 AM SHELL CORE AND MOLDING SUPERVISOR Pulse 65 08/18/2024 10:48 AM SHELL CORE AND MOLDING SUPERVISOR Temperature 36.7 ??C (98 ??F) 08/18/2024 10: 48 AM SHELL CORE AND MOLDING SUPERVISOR Respiratory Rate 18 08/18/2024 10:4 8 AM SHELL CORE AND MOLDING SUPERVISOR Oxygen Saturation 100% 08/18/2024 10: 48 AM SHELL CORE AND MOLDING SUPERVISOR Inhaled Oxygen Concentration - - Weight 54.8 kg (120 lb 12.8 oz) 024 10:48 AM SHELL CORE AND MOLDING SUPERVISOR Height 170.2 cm (5' 7 ) 06/22/2024 8:54 AM CDT Body Mass Index 18.92 06/22/2024 8:54 AM CDT Plan of Treatment Upcoming Encounters Date Type Department Care Team (Late st Contact Info) Description 02/16/2025 10:00 AM CDT Office Visit [facility] Hematology Oncology - [address] [phone] David Munoz MD [address] [place] [address] Health Maintenance Due Date Last Done Comments Hepatitis C Virus (HCV) Screening 1981 Hepatitis B Immunization (1 of 3 - 19+ 3-dose series) 2000 Pneumococcal Immunization Combined (1 of 2 - PCV) 2000 HPV/Cotest 2011 Discussion re Starting/Frequency of Mammograms 2021 Influenza Immunization (#1) 2024 SARS-COV-2 Immunization ( season) 2024 07/27/2024, 07/06/2022, 10/20/2021, Additional history exists Cervical Cancer Screening (CCS) 06/16/2025 Pap Smear 06/16/2025 06/16/2022 Respiratory Syncytial Virus (RSV) Immunization (Adult) (1 - 1-dose 75+ series) 2056 DTaP/Tdap/Td Immunization Discontinued 07/27/2024 TdaP Immunization Completed 07/27/2024 Meningococcal Immunization (ACWY) Aged Out No longer eligible based on patient's age to complete this topic Rotavirus Immunization Aged Out No lo nger eligible based on patient's age to complete this topic Procedures Procedure Name Priority Date/Time Associated Diagnosis Comments COMPLETE BLOOD COUNT (CBC) WITH DIFF Routine 08/17/2024 12:00 AM SHELL CORE AND MOLDING SUPERVISOR Lymphopenia PULMONARY TEST 08/02/2024 12:00 AM CDT from Last 3 Months Results * COMPLETE BLOOD COUNT (CBC) WITH DIFF (08/17/2024 12:00 AM SHELL CORE AND MOLDING SUPERVISOR) Blood us Angy Dorsey PAC HEMATOLOGY ORDERABLES Fin al Result SCAN * PULMONARY TEST (08/02/2024 12:00 AM CDT) 08/02/2024 us Sjai Alfred MD PFT ORDERABLES Final Result SCAN from Last 3 Months Insurance [facility] Care Teams Taxi Servicer Relationship Specialty Start Date End Date Erick Ann MD [address] [place] [address] PCP - General Internal Medicine 06/07/23 Anais Muller III, MD [address] [place] [address] Consulting Physician Urology 06/07/23
--- OUTSIDE RECORDS SUMMARY | 2024-10-13 01:31 | XMS_ITS | Encounter Summary ---
Author Organization [facility] Address [address], [place] [address] Phone Care Team Providers Care Bread Pan Greaser Name Role Phone Erick Ann MD Primary Care Provider [phone] Renzo MARIE MD, Anais Unavailable [phone] Reason for Visit * Reason Comments New Patient Decreased WBC * Consult, Test & Initiate Treatment (Routine) - Closed Specialty Diagnoses / Procedures Referred By Contpat t Referred To Contact Hematology and Oncology Diagnoses Decreased white blood cell count, unspecified Tereza Fields, DOUGIE, CL[address] [place] [address] Phone: tel: fax: [facility] [address] [place] [id number] Phone: tel: fax: Referral ID Status Reason Start Date Expiration Date Visits Re quested Visits Authorized [id number] Closed 1 1 Encounter Details Date Type Department Care Team (Late st Contact Info) Description 05/31/2024 10:15 AM CDT Initial Consult [facility] [address] [place] [phone] Angy Dorsey, PAC [address] [place] [address] Neutropenia, unspecified type (HCC) (Primary Dx) Discharge [...] Sign Reading Time Taken Comments Blood Pressure 103/62 05/31/2024 10:18 AM CDT Pulse 65 05/31/2024 10:18 AM CDT Temperature 36.3 ??C (97.4 ??F) 05/31/2024 10:18 AM C DT Respiratory Rate 20 05/31/2024 10:18 AM CDT Oxygen Saturation 99% 05/31/2024 10:18 AM CDT Inhaled Oxygen Concentration - - Weight 54.7 kg (120 lb 9.6 oz) 05/31/2024 10:18 AM CDT Height 170.2 cm (5' 7 ) 05/31/2024 10:18 AM CDT Body Mass Index 18.89 05/31/2024 10:18 AM CDT documented in this encounter Patient Instructions * Patient Instructions* Angy Dorsey Darling, PAC - 05/31/2024 10:15 AM CDT Will proceed with labs for further evaluation of abnormal CBC. Maintain adequate hydration with at least 64 oz of water per day. Continue follow-up with primary care and other specialists. Return in 3 weeks to review test results. PLEASE READ: If you are required to [...] or go to the emergency department. * Attachments The following attachments cannot be sent through Care Everywhere. * Leukopenia (Pakistani) documented in this encounter Progress Notes * Angy Dorsey PAC - 05/31/2024 10:15 AM CDT Outpatient Hem/Onc Progress Note Ibeth Mera is a 43 y.o. female seen today for evaluation low WBC, neutrophils. Does report fatigue for the last month month and a half, has had intermittent episodes of night sweats over the last 6 months. Reports currently has had some throat irritation feeling of a tickle in her throat resulting in cough. Reports did recently complete antibiotic therapy for UTI. Does have a history of frequent UTIs, also has history of kidney stones. Reports occasional headache, episodes of lightheadedness, chest discomfort. Has had cardiac eval in his scheduled for stress test and echo. Denies any use of alcohol. Does occasionally use marijuana, vapes, edibles and occasional buds. Does vape nicotine. Completed mammogram August of 2023. Has never had colonoscopy. Denies weight loss. Denies fever/ chills. Denies facial pain or sinus pressure or pain. Denies visual disturbance. Denies earache/ hearing loss or tinnitus. No nasal discharge or epistaxis. Denies pressure/ heaviness/ tightness. Denies sob/ wheezing/ OH. Normal appetite. Denies heartburn/ reflux/nausea/ vomiting/ abdominal pain/ constipation/ diarrhea/ mucus or BRBPR. Denies black or tarry stools. Denies lesions/ rash/ itching/ discoloration to skin. Denies new or unusual joint pain/ stiffness or muscle aches. Denies urinary urgency/ frequency/ burning or pain. Denies fainting. Denies any numbness or tingling. Denies insomnia/ anxiety. Denies breast pain/ lump/ nipple discharge. Menarcheat age 17. Last menstrual cycle 05/15/2024. Reports cycles last approximately 5 days and will be somewhat heavy the 1st day or 2 and then lighten up for the rest of the cycle. Denies any known familyhistory of blood disorders. Reviewed patients past medical, surgical, social, and family history. Outpatient Medications Marked as Taking for the 05/31/24 encounter (Initial Consult) with Angy Dorsey, [facility] Medication Sig Dispense Refill allopurinol (ZYLOPRIM) 100 MG Tablet Take 100 mg by mouth daily. Cyanocobalamin (VITAMIN B12 PO) Take by mouth. MAGNESIUM CITRATE PO Take 500 mg by mouth. Carson-3 Fatty Acids (OMEGA 3 PO) Take by mouth. other by Other route 2 times daily. [place] Vilazodone HCl 10 MG Tablet Take by mouth daily. Vitamin D3 (Vitamin D) 1000 UNIT Tablet Take 25 mcg by mouth daily. Allergies as of 05/31/2024 - Reviewed 05/31/2024 Allergen Reaction Noted Corticosteroids Unknown 06/07/2023 Neomycin Unknown 06/07/2023 History reviewed. No pertinent past medical history. No past surgical history on file. VITAL SIGNS: Vitals: 05/31/24 1018 BP: 103/62 BP Location: Right Arm BP Position: Sitting BP Cuff Size: Regular Pulse: 65 Resp: 20 Temp: 97.4 ??F (36.3 ??C) SpO2: 99% Weight: 120 lb 9.6 oz (54.7 kg) Height: 5' 7 (1.702 m) Physical Exam GENERAL:Well developed, well nourished, in no acute distress. AAO x3. Cooperative. HEENT:Normocephalic. PERRLA. Nonicteric. NECK:Supple/ non tender/ full ROM. LYMPH NODES:No adenopathy. CARDIOVASCULAR:RRR/ S1S2/ No m/g/c/r. PULMONARY: Respirations easy and regular. Breath sounds clear bilaterally. No rhonchi/ rales/ wheezes. GI: Abdomen soft, nondistended. No tenderness, rebound, guarding or mass. No hepatosplenomegaly. Bowel sounds normoactive. MUSCULOSKELETAL:Full ROM all extremities. No tenderness/ swelling/ crepitus. SKIN: General-warm, pink and dry. No rashes/ lesions. PSYCHIATRIC:Euthymic. Affect congruent with mood. Normal thought processes. DATA: CBC: 05/19/2024 WBC 3.16 Hgb 12.6 Hct 38.6 Platelets 215 ANC 1.5 ALC 1.17 CMP: Na 105 K 4.2 Cl 138 CO2 24 Glu 85 BUN 17 Cr 0.67 AST 19 ALT 17 Alk Phos 49 T. bili 0.6 Assessment: Diagnoses and all orders for this visit: Neutropenia, unspecified type (HCC) - COMPLETE BLOOD COUNT (CBC) WITH DIFF; Future - ANTINUCLEAR ANTIBODY (CLEMENTE), TITER IF POS; Future - IMMUNOFIXATION W/ ELECTROPHORESIS SERUM; Future - PERIPHERAL BLOOD, FLOW CYTOMETRY; Future - HAPTOGLOBIN; Future - CMP (COMPREHENSIVE METABOLIC PANEL); Future - Cancel: DIRECT ANTIGLOBULIN TEST (LUDWIN); Future Other orders - Vilazodone HCl 10 MG Tablet; Take by mouth daily. - allopurinol (ZYLOPRIM) 100 MG Tablet; Take 100 mg by mouth daily. - other; by Other route 2 times daily. [place] Plan: Reviewed and discussed above results. Will proceed with labs for further evaluation of abnormal CBC. Maintain adequate hydration with at least 64 oz of water per day. Continue follow-up with primary care and other specialists. Return in 3 weeks to review test results. Diagnoses and all orders for this visit: Neutropenia, unspecified type (HCC) - COMPLETE BLOOD COUNT (CBC) WITH DIFF; Future - ANTINUCLEAR ANTIBODY (CLEMENTE), TITER IF POS; Future - IMMUNOFIXATION W/ ELECTROPHORESIS SERUM; Future - PERIPHERAL BLOOD, FLOW CYTOMETRY; Future - HAPTOGLOBIN; Future - CMP (COMPREHENSIVE METABOLIC PANEL); Future - Cancel: DIRECT ANTIGLOBULIN TEST (LUDWIN); Future Other orders - Vilazodone HCl 10 MG Tablet; Take by mouth daily. - allopurinol (ZYLOPRIM) 100 MG Tablet; Take 100 mg by mouth daily. - other; by Other route 2 times daily. [place] Return in about 3 weeks (around 06/21/2024) for Leukopenia, Review labs/ tests after completed. The patient was given an opportunity to ask questions, and all questions answered to patient's satisfaction. Patient verbalizes understanding of the plan as outlined above. Patient Instructions Will proceed with labs for further evaluation of abnormal CBC. Maintain adequate hydration with at least 64 oz of water per day. Continue follow-up with primary care and other specialists. Return in 3 weeks to review test results. PLEASE READ: If you are required to [...] the emergency department. documented in this encounter Miscellaneous Notes * Interdisciplinary - Lor Bartlett - 05/31/2024 10:15 AM CDT The patient reports mild fatigue. Pain score is 0. * Interdisciplinary - Lor Bartlett - 05/31/2024 10:15 AM CDT AVS printed. Patient will complete labs in office today and follow up to review results in 3 weeks. documented in this encounter Plan of Treatment Upcoming Encounters Date Type Department Care Team (Late st Contact Info) Description 02/16/2025 10:00 AM CDT Office Visit [facility] - Hematology Oncology - [address] [id number] David Munoz MD [address] [place] [address] documented as of this encounter Results * (ABNORMAL) CMP (COMPREHENSIVE METABOLIC PANEL) (05/31/2024 11:00 AM CDT) SODIUM 138 136 - 145 mmol/L 05/31/2024 12:09 PM CDT [facility] POTASSIUM 4.2 3.5 - 5.1 mmol/L 05/31/2024 12:09 PM CDT [facility] CHLORIDE 107 98 - 107 mmol/L 05/31/2024 12:09 PM CDT [facility] CO2, VENOUS 23 22 - 30 mmol/L 05/31/2024 12:09 PM T [facility] ANION GAP 12.2 <18.0 mmol/L 05/31/2024 12:09 PM T [facility] GLUCOSE 94 70 - 99 mg/dL 05/31/2024 12:09 PM T [facility] BUN 19(H) 5 - 18 mg/dL 05/31/2024 12:09 PM T [facility] CREATININE, BLOOD 0.71 0.60 - 1.00 mg/dL 05/31/2024 12:09 PM T [facility] BUN/CREATININE RATIO 27(H) 12 - 20 ratio 05/31/2024 12:09 PM T [facility] TOTAL PROTEIN 7.0 6.3 - 8.2 g/dL 05/31/2024 12:09 PM T [facility] ALBUMIN 4.3 3.5 - 5.0 g/dL 05/31/2024 12:09 PM CDT [facility] A/G RATIO 1.6 1.0 - 2.2 05/31/2024 12:09 PM CDT [facility] CALCIUM 9.3 8.7 - 10.5 mg/dL 05/31/2024 12:09 PM T [facility] T BILI 0.7 0.2 - 1.2 mg/dL 05/31/2024 12:09 PM T [facility] SGOT (AST) 19 5 - 34 U/L 05/31/2024 12:09 PM CDT [facility] SGPT (ALT) 19 0 - 55 U/L 05/31/2024 12:09 PM CDT [facility] ALKALINE PHOSPHATASE 53 40 - 150 U/L 05/31/2024 12:09 PM CDT [facility] IS THE PATIENT REQUIRED TO BE FASTING? No 05/31/2024 12:09 PM CDT [facility] GFR, ESTIMATED >60 >=60 05/31/2024 12:09 PM CDT [facility] Comment: Creatinine Clearance is the preferred criteria for selecting drug dose adjustments in renally impaired patients. ??The GFR is provided as additional pertinent clinical information. GFR is reported in mL/min/1.73 sq m. Calculation based on the Chronic Kidney Disease Epidemiology Collaboration (CKD- EPI) equation refit without adjustment for race. GFR, EST. >60 >=60 024 12:09 PM CDT [facility] GFR, EST. NONAFRICAN >60 >=60 05/31/2024 12:09 PM CDT [facility] Blood Venipuncture / Unknown 05/31/2024 11:00 AM CDT 05/31/2024 11:00 AM CDT [facility] PAC CHEMISTRY ORDERABLES Galilea l Result [facility] [address] [place] [address] * HAPTOGLOBIN (05/31/2024 11:00 AM CDT) HAPTOGLOBIN 55 35 - 250 mg/dL 05/31/2024 9:45 PM CDT [facility] Blood Venipuncture / Unknown 05/31/2024 11:00 AM CDT 05/31/2024 11:00 AM CDT [facility] PAC CHEMISTRY ORDERABLES Galilea l Result [facility] [address] [place] [address], [place] * PERIPHERAL BLOOD, FLOW CYTOMETRY (05/31/2024 11:00 AM CDT) FINAL DIAGNOSIS Peripheral blood, flow cytometric analysis: - No abnormal lymphoid population or increased circulating blasts detected. 4 1:11 PM CDT [facility] Specimen Source Received in an EDTA anticoagulated tube is 3mL peripheral blood. 1:11 PM CDT [facility] Microscopic Description Peripheral blood smear review shows features concordant with flow cytometric findings. Specimen processed and evaluated at [facility], [place], [place]. This document was completed utilizing speech [...] the provider for clarification. 1:11 PM CDT [facility] Immunophenotypic Findings Flow cytometric analysis shows a heterogeneous cellular population. Blasts are not increased. Immunophenotypically unremarkable/nonspeci fic T-cells (CD4:CD8 = 1.9) and polyclonal B-cells are present. CELL POPULATIONS: 65% granulocytes, 6% monocytes, 27% lymphocytes, 1% basophils, <1% blasts. Total percentage may be affected by rounding and the presence of debris signals. 1:11 PM CDT [facility] Phenotyping Markers Utilized Flow markers performed (23): CD2, CD3, CD4, CD5, CD7, CD8, CD10, CD13, CD15, CD19, CD20, CD33, CD34, CD38, CD45, CD56, CD117, CD123, CD200, kappa, lambda, HLA-DR, TCR gamma/delta This test was developed and its performance characteristics determined by [facility]. It has not been cleared or approved by the U.S. Food and Drug Administration. 1:11 PM CDT [facility] Case Report Flow Cytometry Repor t ? Case: [id number] ? Authorizing Provider: ??Willian, Angy Hastings, PAC ?? Collected: ? 05/31/2024 11:00 AM ? Ordering Location: ? [facility] ? Received: ?05/31/2024 11:00 AM ? [facility] - ? Cancer Center Oncology ? Services ? Pathologist: ? Li, Rubén, MD ? Specimen: ?Blood, Peripheral blood ? 1:11 PM CDT [facility] Blood BLOOD SPECIMEN / Unknown Venipuncture / Unknown 05/31/2024 11:00 AM CDT 05/31/2024 11:00 AM CDT us Angy Dorsey PAC PATHOLOGY/CYTOLOGY ORDERA BLES Final Result [facility] [address] [place] [address], * (ABNORMAL) IMMUNOFIXATION W/ ELECTROPHORESIS SERUM (05/31/2024 11:00 AM CDT) TOTAL PROTEIN 7.0 6.3 - 8.2 g/dL 06/01/2024 3:19 PM CDT [facility] % ALBUMIN 58.8 55.8 - 66.7 % 06/01/2024 3:19 PM CDT [facility] ALBUMIN SERUM 4.1 2.5 - 5.4 g/dL 06/01/2024 3:19 PM CDT [facility] % ALPHA 1 GLOBULIN 2.7(L) 2.9 - 4.9 % 06/01/2024 3:19 PM CDT [facility] ALPHA 1 0.2 0.2 - 0.4 g/dL 06/01/2024 3:19 PM CDT [facility] % ALPHA 2 GLOBULIN 7.8 7.1 - 11.8 % 06/01/2024 3:19 PM CDT [facility] ALPHA 2 0.5 0.5 - 1.0 g/dL 06/01/2024 3:19 PM CDT [facility] % BETA 12.4 8.4 - 13.1 % 06/01/2024 3:19 PM CDT [facility] BETA-GLOBULIN 0.9 0.5 - 1.1 g/dL 06/01/2024 3:19 PM CDT [facility] % GAMMA GLOBULIN 18.3 11.1 - 18.8 % 06/01/2024 3:19 PM CDT [facility] GAMMA 1.3 0.7 - 1.5 g/dL 06/01/2024 3:19 PM CDT [facility] IMMUNOGLOBULIN G 1,336 552 - 1,631 mg/dL 06/01/2024 3:19 PM CDT [facility] IMMUNOGLOBULIN A 209 65 - 421 mg/dL 06/01/2024 3:19 PM CDT [facility] IMMUNOGLOBULIN M 137 33 - 293 mg/dL 06/01/2024 3:19 PM CDT [facility] INTERPRETATION SERUM No abnormal protein band is detected by serum protein electrophoresis. Serum immunofixation electrophoresis is negative for monoclonal immunoglobulins. Reviewed by Montserrat Holland, Ph.D. 06/01/2024 3:19 PM CDT [facility] A/G RATIO, SERUM 1.4 06/01/20 3:19 PM CDT [facility] Blood Venipuncture / Unknown 05/31/2024 11:00 AM CDT 05/31/2024 11:00 AM CDT Narrative [facility] - 06/01/2024 3:19 PM CDT Reviewed by Inocencio Wood M.D. us Angy Dorsey PAC CHEMISTRY ORDERABLES Galilea l Result [facility] [address] [place] [address], [place] * (ABNORMAL) ANTINUCLEAR ANTIBODY (CLEMENTE), TITER IF POS (05/31/2024 11:00 AM CDT) CLEMENTE SCREEN See titer results(A) Negative titer 06/01/2024 1:22 PM CDT [facility] Blood Venipuncture / Unknown 05/31/2024 11:00 AM CDT 05/31/2024 11:00 AM CDT us Angy Dorsey PAC IMMUNOLOGY ORDERABLES Fin al Result [facility] [address] [place] [address], documented in this encounter Visit Diagnoses Diagnosis Neutropenia, unspecified type (HCC)- Primary documented in this encounter Care Teams Bread Pan Greaser Relationship Specialty Start Date End Date Erick Ann MD [address] [place] [id number] PCP - General Internal Medicine 06/07/23 Anais Muller III, MD [address] [place] [address] Consulting Physician Urology 06/07/23 documented as of this encounter
--- OUTSIDE RECORDS SUMMARY | 2024-10-13 01:31 | XMS_ITS | Encounter Summary ---
Author Organization [facility] Address [address] [place] [address] Phone Care Team Providers Care Kickboxing Instructor Name Role Phone Erick Ann MD Primary Care Provider [phone] Renzo MARIE MD, Anais Unavailable [phone] Reason for Referral * Consult, Test & Initiate Treatment (Routine) - Closed Specialty Diagnoses / Procedures Referred By Contac t Referred To Contact Diagnoses Elevated antinuclear antibody (CLEMENTE) level David Munoz MD [address] [place] [address] Phone: tel: fax: Ysabel Carson MD [address] [place] [address] Phone: tel: fax: Referral ID Status Reason Start Date Expiration Date Visits Re quested Visits Authorized [id number] Closed 08/18/2024 1 1 Scheduling Instructions Ibeth is being referred to Dr. Ysabel Carson or other specialist in patient's insurance network for positive CLEMENTE with morning stiffness and joint pains. See below for Ibeth's current medications, allergies and problem list. CURRENT MEDS: Current Outpatient Medications: allopurinol (ZYLOPRIM) 100 MG Tablet, Take 100 mg by mouth daily., Disp: , Rfl: Cyanocobalamin (VITAMIN B12 PO), Take by mouth., Disp: , Rfl: MAGNESIUM CITRATE PO, Take 500 mg by mouth., Disp: , Rfl: [place]-3 Fatty Acids (OMEGA 3 PO), Take by mouth., Disp: , Rfl: other, by Other route 2 times daily. [place], Disp: , Rfl: triamcinolone (KENALOG) 0.1 % Cream, Apply 2 times daily. Application Site: apply twice a day to poison keegan rash on stomach ,arms and legs until heal (Description and Location), Disp: , Rfl: Vilazodone HCl 10 MG Tablet, Take by mouth daily., Disp: , Rfl: Vitamin D3 (Vitamin D) 1000 UNIT Tablet, Take 25 mcg by mouth daily., Disp: , Rfl: No current facility-administered medications for this visit. ALLERGIES: -- Corticosteroids -- Unknown -- Neomycin -- Unknown PROBLEM LIST: Patient Active Problem List: Neutropenia (HCC) Lymphopenia Elevated antinuclear antibody (CLEMENTE) level STANT CHIEF ENGINEER Reason for Visit * Reason Comments Follow-up Encounter Details Date Type Department Care Team (Late st Contact Info) Description 08/18/2024 10:45 AM ASSISTANT CHIEF ENGINEER Office Visit [facility] - Hematology Oncology [address] [phone] David Munoz MD [address] [place] [address] Lymphopenia (Primary Dx); Other drug-induced neutropenia (HCC); [...] Comments Blood Pressure 108/64 08/18/2024 10:48 AM ASSISTANT CHIEF ENGINEER Pulse 65 08/18/2024 10:48 AM ASSISTANT CHIEF ENGINEER Temperature 36.7 ??C (98 ??F) 08/18/2024 10: 48 AM ASSISTANT CHIEF ENGINEER Respiratory Rate 18 08/18/2024 10:4 8 AM ASSISTANT CHIEF ENGINEER Oxygen Saturation 100% 08/18/2024 10: 48 AM ASSISTANT CHIEF ENGINEER Inhaled Oxygen Concentration - - Weight 54.8 kg (120 lb 12.8 oz) 024 10:48 AM ASSISTANT CHIEF ENGINEER Height - - Body Mass Index 18.92 06/22/2024 8:54 AM CDT documented in this encounter Progress Notes * Sakina Maldonado RN - 08/18/2024 10:45 AM CST Pt here for MD f/u. No questions or concerns at this time. Medications and allergies reviewed with changes made. STANT CHIEF ENGINEER * Morenita Alaniz - 08/18/2024 10:45 AM CST Outpatient Hem/Onc Progress Note PROGRESS NOTE Ibeth Mera is a 43 y.o. female seen today for follow up of neutropenia. Ibeth reports being on antibiotic prior to follow up with Angy JEAN BAPTISTE on 06/22/24. Patient reports following with urology for recurrent UTI with 6 courses of antibiotics in 9 month period. She reports being advised ofanatomical component driving recurrent infections with change in hygiene products preventing recurrent infection. Ibeth reports starting Allopurinol 100 mg daily in April 2024 for recurrent nephrolithiasis and uric acid present in urine. Reports taking for few days before holding medication for sometime due to concerns for side effects associated with Allopurinol. Ibeth reports restarting Allopurinol after this to prevent recurrent nephrolithiasis from developing. Patient reports taking [id number] mg daily for management of mental health without recent changes. Ibeth complains of recurrent morning joint stiffness, persistent joint pains involving neck, lower back, hip, and right foot. Patient reports stiffness in the right foot when attempting different yoga poses. 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 Recites need to maintain perfect posture to prevent flare in joint discomfort. Ibeth denies referral to admissions specialist for further evaluation for positive CLEMENTE obtained on 05/31/24. Reviewed patients past medical, surgical, social, and family history. No outpatient medications have been marked as taking for the 08/18/24 encounter (Office Visit) with David Munoz MD. Allergies as of 08/18/2024 - Reviewed 08/18/2024 Allergen Reaction Noted Corticosteroids Unknown 06/07/2023 Neomycin Unknown 06/07/2023 REVIEW OF SYSTEMS Review of Systems Constitutional: Positive for malaise/fatigue. Musculoskeletal: Positive for back pain, joint pain and neck pain. Joint stiffness Decreased ROM Physical Exam Physical Exam PAIN ASSESSMENT: Ibeth complains of morning stiffness and joint pains. DATA: 08/17/24 LABS OSH: CBC WBC 3.24 HGB 12.9 PLT 206 ANC 1.48 ALC 1.22 AMC 0.28 AEC 0.22 ABC 0.01 Lab Results Component Value Date WBC 3.72 (L) 05/31/2024 RBC 4.39 05/31/2024 HEMOGLOBIN 12.8 05/31/2024 MCV 88.2 05/31/2024 MCH 29.2 05/31/2024 MCHC 33.1 05/31/2024 PLATELETCNT 198 05/31/2024 RDW 12.4 05/31/2024 LYMPHOCYTES 25.0 05/31/2024 RELEOS 8.3 (H) 05/31/2024 RELBAS 0.8 05/31/2024 ANC 2.17 05/31/2024 MONOCYTES 0.28 05/31/2024 EOSINOPHILS 0.31 05/31/2024 BASOPHILS 0.03 05/31/2024 Lab Results Component Value Date SODIUM 138 05/31/2024 POTASSIUM 4.2 05/31/2024 CHLORIDE 107 05/31/2024 ANIONGAP 12.2 05/31/2024 GLUCOSE 94 05/31/2024 BUN 19 (H) 05/31/2024 CREATININE 0.71 05/31/2024 TOTALPROTEIN 7.0 05/31/2024 TOTALPROTEIN 7.0 05/31/2024 ALBUMIN 4.3 05/31/2024 CALCIUM 9.3 05/31/2024 SGPTALT 19 05/31/2024 ALKALINEPHO 53 05/31/2024 Lab Results Component Value Date CLEMENTE See titer results (A) 05/31/2024 TITR 1:160 (A) 05/31/2024 INTPR 05/31/2024 No abnormal protein band is detected by serum protein electrophoresis. Serum immunofixation electrophoresis is negative for monoclonal immunoglobulins. Reviewed by Montserrat Holland, Ph.D. HAPTOGLOBIN 55 05/31/2024 FINAL DIAGNOSIS Date Value Ref Range Status 05/31/2024 Final Peripheral blood, flow cytometric analysis: - No abnormal lymphoid population or increased circulating blasts detected. CBC: 05/19/2024 WBC 3.16 Hgb 12.6 Hct 38.6 Platelets 215 ANC 1.5 ALC 1.17 CMP: Na 105 K 4.2 Cl 138 CO2 24 Glu 85 BUN 17 Cr 0.67 AST 19 ALT 17 Alk Phos 49 T. bili 0.6 10/31/22 CBC OSH: WBC 8.1 HGB 12.0 PLT 202 ANC 5.6 ALC 1.7 DIAGNOSTIC IMAGING STUDIES: 07/11/24 US ABDOMEN OSH: Negative for clinical findings Assessment: Positive CLEMENTE Mild neutropenia Recurrent nephrolithiasis Plan: 2. Referral to Ysabel Fall for positive CLEMENTE with morning stiffness and joint pains. Patient isagreeable to this referral for further evaluation and treatment of this finding. 3. Try decreasing Allopurinol 100 mg to every other day. 4. Encouraged Ibeth to continue eating balanced diet as part of healthy lifestyle. Touched upon anti-inflammatory diet patient can try to improve joint discomfort and inflammation occurring. Discussedremaining active with intentional exercise. 5. Continue to follow with PCP and other specialists for management of chronic medical conditions and acute illness. Encouraged patient to remain up to date on age related cancer screenings. Follow up in 6 months with labs prior The patient was given an opportunity to ask questions, and all questions answered to patient's satisfaction. Patient verbalizes understanding of the plan as outlined above. The documentation for this visit was completed by Morenita Alaniz acting as a scribe for David Zavaleta MD. 08/18/2024, 11:15 AM ASSISTANT CHIEF ENGINEER STANT CHIEF ENGINEER * David Munoz MD - 08/18/2024 10:45 AM CST Outpatient Hem/Onc Progress Note PROGRESS NOTE Ibeth Mera is a 43 y.o. female seen today for follow up of neutropenia. Ibeth reports being on antibiotic prior to follow up with Angy JEAN BAPTISTE on 06/22/24. Patient reports following with urology for recurrent UTI with 6 courses of antibiotics in 9 month period. She reports being advised ofanatomical component driving recurrent infections with change in hygiene products preventing recurrent infection. Ibeth reports starting Allopurinol 100 mg daily in April 2024 for recurrent nephrolithiasis and uric acid present in urine. Reports taking for few days before holding medication for sometime due to concerns for side effects associated with Allopurinol. Ibeth reports restarting Allopurinol after this to prevent recurrent nephrolithiasis from developing. Patient reports taking [id number] mg daily for management of mental health without recent changes. Ibeth complains of recurrent morning joint stiffness, persistent joint pains involving neck, lower back, hip, and right foot. Patient reports stiffness in the right foot when attempting different yoga poses. 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 Recites need to maintain perfect posture to prevent flare in joint discomfort. Ibeth denies referral to admissions specialist for further evaluation for positive CLEMENTE obtained on 05/31/24. Reviewed patients past medical, surgical, social, and family history. No outpatient medications have been marked as taking for the 08/18/24 encounter (Office Visit) with David Munoz MD. Allergies as of 08/18/2024 - Reviewed 08/18/2024 Allergen Reaction Noted Corticosteroids Unknown 06/07/2023 Neomycin Unknown 06/07/2023 REVIEW OF SYSTEMS Review of Systems Constitutional: Positive for malaise/fatigue. Musculoskeletal: Positive for back pain, joint pain and neck pain. Joint stiffness Decreased ROM Physical Exam Physical Exam PAIN ASSESSMENT: Ibeth complains of morning stiffness and joint pains. DATA: 08/17/24 LABS OSH: CBC WBC 3.24 HGB 12.9 PLT 206 ANC 1.48 ALC 1.22 AMC 0.28 AEC 0.22 ABC 0.01 Lab Results Component Value Date WBC 3.72 (L) 05/31/2024 RBC 4.39 05/31/2024 HEMOGLOBIN 12.8 05/31/2024 MCV 88.2 05/31/2024 MCH 29.2 05/31/2024 MCHC 33.1 05/31/2024 PLATELETCNT 198 05/31/2024 RDW 12.4 05/31/2024 LYMPHOCYTES 25.0 05/31/2024 RELEOS 8.3 (H) 05/31/2024 RELBAS 0.8 05/31/2024 ANC 2.17 05/31/2024 MONOCYTES 0.28 05/31/2024 EOSINOPHILS 0.31 05/31/2024 BASOPHILS 0.03 05/31/2024 Lab Results Component Value Date SODIUM 138 05/31/2024 POTASSIUM 4.2 05/31/2024 CHLORIDE 107 05/31/2024 ANIONGAP 12.2 05/31/2024 GLUCOSE 94 05/31/2024 BUN 19 (H) 05/31/2024 CREATININE 0.71 05/31/2024 TOTALPROTEIN 7.0 05/31/2024 TOTALPROTEIN 7.0 05/31/2024 ALBUMIN 4.3 05/31/2024 CALCIUM 9.3 05/31/2024 SGPTALT 19 05/31/2024 ALKALINEPHO 53 05/31/2024 Lab Results Component Value Date CLEMENTE See titer results (A) 05/31/2024 TITR 1:160 (A) 05/31/2024 INTPR 05/31/2024 No abnormal protein band is detected by serum protein electrophoresis. Serum immunofixation electrophoresis is negative for monoclonal immunoglobulins. Reviewed by Montserrat Holland, Ph.D. HAPTOGLOBIN 55 05/31/2024 FINAL DIAGNOSIS Date Value Ref Range Status 05/31/2024 Final Peripheral blood, flow cytometric analysis: - No abnormal lymphoid population or increased circulating blasts detected. CBC: 05/19/2024 WBC 3.16 Hgb 12.6 Hct 38.6 Platelets 215 ANC 1.5 ALC 1.17 CMP: Na 105 K 4.2 Cl 138 CO2 24 Glu 85 BUN 17 Cr 0.67 AST 19 ALT 17 Alk Phos 49 T. bili 0.6 10/31/22 CBC OSH: WBC 8.1 HGB 12.0 PLT 202 ANC 5.6 ALC 1.7 DIAGNOSTIC IMAGING STUDIES: 07/11/24 US ABDOMEN OSH: Negative for clinical findings Assessment: Positive CLEMENTE Mild leukopenia/lymphopenia Recurrent nephrolithiasis Plan: 1. Reviewed patient's recent clinical symptoms and lab trend. Mild chronic leukopenia, mostly affecting lymphocytes. Flow cytometry and other workup negative. Does have a positive CLEMENTE so mild lymphopenia could be related to underlying autoimmune disease. Referral to Rheumatology. 2. Referral to Ysabel Fall for positive CLEMENTE with morning stiffness and joint pains. Patient isagreeable to this referral for further evaluation and treatment of this finding. 3. Try decreasing Allopurinol 100 mg to every other day. 4. Encouraged Ibeth to continue eating balanced diet as part of healthy lifestyle. Touched upon anti-inflammatory diet patient can try to improve joint discomfort and inflammation occurring. Discussedremaining active with intentional exercise. 5. Continue to follow with PCP and other specialists for management of chronic medical conditions and acute illness. Encouraged patient to remain up to date on age related cancer screenings. Follow up in 6 months with CBC prior The patient was given an opportunity to ask questions, and all questions answered to patient's satisfaction. Patient verbalizes understanding of the plan as outlined above. The documentation for this visit was completed by Morenita Alaniz acting as a scribe for David Zavaleta MD. 09/21/2024, 11:02 AM ASSISTANT CHIEF ENGINEER The documentation recorded by the scribe was completed while in the exam room with me and the patient. The documentation accurately reflects the service I personally performed and the decisions made by me. I have confirmed and edited the documentation as necessary. David Munoz MD 09/21/2024, 11:02 AM ASSISTANT CHIEF ENGINEER STANT CHIEF ENGINEER documented in this encounter Plan of Treatment Upcoming Encounters Date Type Department Care Team (Late st Contact Info) Description 02/16/2025 10:00 AM CDT Office Visit [facility] - Hematology Oncology [address] [phone] David Munoz MD [address] [place] [address] Scheduled Orders Name Type Priority Associated Diagnoses Orde r Schedule COMPLETE BLOOD COUNT (CBC) WITH DIFF Lab Routine Lymphopenia Other drug-induced neutropenia (HCC) Expected: 02/14/2025, Expires: 03/16/2025 COMPLETE BLOOD COUNT (CBC) WITH DIFF Lab Routine Lymphopenia Expected: 02/14/2025, Expires: 03/16/2025 Scheduled Referrals Name Type Priority Associated Diagnoses Orde r Schedule EXTERNAL RHEUMATOLOGY REFERRAL Outpatient Referral Routine Elevated antinuclear antibody (CLEMENTE) level Expected: 08/18/2024, Expires: 08/18/2025 documented as of this encounter Visit Diagnoses Diagnosis Lymphopenia- Primary Lymphocytopenia Other drug-induced neutropenia (HCC) Elevated antinuclear antibody (CLEMENTE) level Other and unspecified nonspecific immunological findings documented in this encounter Care Teams Kickboxing Instructor Relationship Specialty Start Date End Date Erick Ann MD [address] [place] [id number] PCP - General Internal Medicine 06/07/23 Anais Muller III, MD [address] [place] [address] Consulting Physician Urology 06/07/23 documented as of this encounter
--- OUTSIDE RECORDS SUMMARY | 2024-10-13 01:31 | XMS_ITS | Encounter Summary ---
Author Organization [facility] Address [address] [facility] [place] [address] Phone Care Team Providers Care Speech And Hearing Director Name Role Phone Melissa Melgar MD Primary Care Provider [phone] Renzo MARIE MD, Anais Unavailable [phone] Reason for Referral * Consult, Test & Initiate Treatment (Routine) - Closed Specialty Diagnoses / Procedures Referred By Contac t Referred To Contact Diagnoses History of kidney stones Anais Muller III, MD [address] [place] [address] Phone: tel: fax: [facility] [address] [place] [address] Phone: tel: fax: Referral ID Status Reason Start Date Expiration Date Visits Re quested Visits Authorized [id number] Closed 07/12/2023 1 1 Scheduling Instructions Ibeth is being referred to [facility] or other specialist in patient's insurance network for metabolic stone evaluation. See below for Ibeth's current medications, allergies and problem list. CURRENT MEDS: Current Outpatient Medications: buPROPion (WELLBUTRIN) 150 MG XL tablet, , Disp: , Rfl: Cyanocobalamin (VITAMIN B12 PO), Take by mouth., Disp: , Rfl: escitalopram (LEXAPRO) 20 MG Tablet, Take 20 mg by mouth daily. (Patient not taking: Reported on 06/07/2023), Disp: , Rfl: MAGNESIUM CITRATE PO, Take 500 mg by mouth., Disp: , Rfl: Avon-3 Fatty Acids (OMEGA 3 PO), Take by mouth., Disp: , Rfl: triamcinolone (KENALOG) 0.1 % Cream, Apply 2 times daily. Application Site: apply twice a day to poison keegan rash on stomach ,arms and legs until heal (Description and Location), Disp: , Rfl: Vitamin D3 (Vitamin D) 1000 UNIT Tablet, Take 25 mcg by mouth daily., Disp: , Rfl: Current Facility-Administered Medications: sulfamethoxazole-trimethoprim DS (BACTRIM DS, SEPTRA DS) 800-160 MG per tablet 1 Tablet, 1 Tablet, Oral, Once, Anais Muller III, MD ALLERGIES: -- Corticosteroids -- Unknown -- Neomycin -- Unknown PROBLEM LIST: There is no problem list on file for this patient. Reason for Visit * Reason Comments Cystoscopy Encounter Details Date Type Department Care Team ([facility] Contact Info) Description 07/12/2023 9:30 AM CDT Procedure Visit [facility] [address] [place] [address] Anais Muller III, MD [address] [place] [address] History of kidney stones (Primary Dx); Recurrent cystitis; Bilateral renal stones; Urinary hesitancy Discharge Disposition: Discharged to home or Selfcare [...] suspected to have Coronavirus/COVID-19? No / Unsure 07/12/2023 9:36 AM CDT documented as of this encounter Last Filed Vital Signs Vital Sign Reading Time Taken Comments Blood Pressure 95/61 07/12/2023 9:40 AM CDT Pulse 82 07/12/2023 9:40 AM CDT Temperature - - Respiratory Rate 18 07/12/2023 9:40 AM CDT Oxygen Saturation - - Inhaled Oxygen Concentration - - Weight 55.3 kg (122 lb) 07/12/2023 9:40 AM CDT Height 170.2 cm (5' 7 ) 07/12/2023 9:40 AM CDT Body Mass Index 19.11 07/12/2023 9:40 AM CDT documented in this encounter Progress Notes * Anais Muller III, MD - 07/12/2023 9:30 AM CDT UROLOGY [facility] [address] [facility], [address] [place] [address] PHONE: FAX: Assessment & Plan Has several troubles we will address today: She has a history of passing small ureteral stones. [facility] but we were forwarded a CT scan from October of 2022 showing bilateral small stones size of which were not given. At that Time she had a 3 mm right mid ureteral stone as well which I presume she passed. When sen 05/[address] Her insurance company intervened and wanted a renal u/s first. This was ordered and the pt has not had either u/s or CT done yet. Back for her cystoscopy 07/2023 ?? She is ralso eported to have frequent urinary tract infections and we have sterile urine cultures from July 02 and October of 2022. But then an E coli infection was identified in January of 2023 and in February of 2023. The 45 pages of forwarded Records do not say how those were treated. There are noother records in [facility] record system here at [facility]. We repeated the culture which was NG 05/2023 She was prescribed a self starter script for Nitrofurantoin then. ?? She is also apparently troubled by a slow stream. The last urinalysis forwarded to us showed a contaminated urine with more epithelial cells then either white cells or red cells. ? Subjective: 06/07/2023 ?? HPI: HPI: Ibeth Mera presents with a chief complaint of renal stones and urinary tract infections. We have been unable to get imaging on her here so far. I also asked her to f/u with nephrology to prevent stones. I may have to reorder that 07/2023. We have used [facility] in [place], [place], Dr Tim Larry in [facility], or Dr Duncan [facility] or in [place] where she goes to [facility]. Patient prefers in [place] referral so we will send her to Dr. [facility] since Dr. Melgar in [facility] and they do not accept [facility] He did not get her ultrasound yet because she thought she was getting a CT scan but will accept theultrasound since that is what the insurance company dictates if the ultrasound does not give us answers were then we can order the CT scan The following portions of the patient's chart were reviewed in this encounter and updated as appropriate: Tobacco Allergies Meds ROS: Review of systems was negative, except as documented in HPI. Current Outpatient Medications Medication Sig Dispense Refill ??? buPROPion (WELLBUTRIN) 150 MG XL tablet ??? Cyanocobalamin (VITAMIN B12 PO) Take by mouth. ??? escitalopram (LEXAPRO) 20 MG Tablet Take 20 mg by mouth daily. (Patient not taking: Reported on06/07/2023) ??? MAGNESIUM CITRATE PO Take 500 mg by mouth. ??? Avon-3 Fatty Acids (OMEGA 3 PO) Take by mouth. ??? triamcinolone (KENALOG) 0.1 % Cream Apply 2 times daily. Application Site: apply twice a day topoison keegan rash on stomach ,arms and legs until heal (Description and Location) ??? Vitamin D3 (Vitamin D) 1000 UNIT Tablet Take 25 mcg by mouth daily. No current facility-administered medications for this visit. Allergies Allergen Reactions ??? Corticosteroids Unknown ??? Neomycin Unknown No past medical history on file. Social History Socioeconomic History ??? Marital status: Single Spouse name: Not on file ??? Number of children: Not on file ??? Years of education: Not on file ??? Highest education level: Not on file Occupational History ??? Not on file Tobacco Use ??? Smoking status: Some Days Types: Cigarettes ??? Smokeless tobacco: Never Vaping Use ??? Vaping Use: Every day Substance and Sexual Activity ??? Alcohol use: Never ??? Drug use: Yes Types: Marijuana ??? Sexual activity: Yes Partners: Female Other Topics Concern ??? Not on file Social History Narrative ??? Not on file No past surgical history on file. Objective: VITALS: BP 95/61 Pulse 82 Resp 18 Ht 5' 7 (1.702 m) Wt 122 lb (55.3 kg) BMI 19.11 kg/m?? PHYSICAL EXAM: GENERAL: Normal appearance. Patient is sitting in the exam room comfortably. EYES: Extraocular movements intact. No scleral icterus, normal conjuctiva. ENT: Normal external appearance; oral mucosa is pink and moist. NECK: Symmetrical, no visible thyromegaly or masses. RESPIRATORY: Unlabored respirations. Symmetric chest expansion. GASTROINTESTINAL: Abdomen without obvious mass or hernia. PELVIC EXAM: No results found for: WBC, HEMOGLOBIN, HEMATOCRIT, PLATELETCNT, MCV No results found for: SODIUM, POTASSIUM, CHLORIDE, CO2VEN, ANIONGAP, GLUCOSE, BUN, CREATININE, BCRATIO8, TOTALPROTEIN, ALBUMIN, AGRATIO, CALCIUM, TBIL, SGOTAST, SGPTALT, ALKALINEPHO, GFRNA, GFRA Results for orders placed or performed in visit on 06/07/23 CULTURE, URINE Specimen: Urine Clean Catch; Culture Result Value Ref Range Status CULTURE RESULTS NO GROWTH WITHIN 1 DAY Final Office Visit on 06/07/23 CULTURE, URINE Specimen: Urine Clean Catch; Culture Result Value Ref Range CULTURE RESULTS NO GROWTH WITHIN 1 DAY No results found for: TESTOSTTTL No results found for this or any previous visit from the past 365 days. No results found for this or any previous visit from the past 365 days. No results found for this or any previous visit from the past 365 days. Ibeth was seen today for cystoscopy. Diagnoses and all orders for this visit: History of kidney stones - PATHOLOGY SURGICAL; Future - PATHOLOGY SURGICAL - EXTERNAL NEPHROLOGY REFERRAL; Future Recurrent cystitis - CYSTOURETHROSCOPY - Discontinue: sulfamethoxazole-trimethoprim DS (BACTRIM DS, SEPTRA DS) 800-160 MG per tablet 1 Tablet - POCT UA AUTOMATED W/O MICRO; Standing - POCT UA AUTOMATED W/O MICRO - sulfamethoxazole-trimethoprim DS (BACTRIM DS, SEPTRA DS) 800-160 MG per tablet 1 Tablet - lidocaine Urethral/Mucosal (GLYDO) 2 % prefilled syringe for urethral catheter insertion PRSY 6 mL Bilateral renal stones - Cancel: EXTERNAL NEPHROLOGY REFERRAL; Future Urinary hesitancy still needs the renal u/s and then a CT scan to see where stones are and how big She gave us a stone today for analysis. She would like to see Dr [facility] By: Anais Muller III, MD, 07/12/2023, 10:04 AM CDT Primary Care Physician: MELISSA MELGAR MD documented in this encounter Procedure Notes * Anais Muller III, MD - 07/12/2023 9:30 AM CDTPre-Procedure Diagnose(s): Recurrent cystitis; Recurrent cystitis Post-Procedure Diagnose(s): Recurrent cystitis With the patient in lithotomy position cystourethroscopy is carried out. Appropriate prep and drapewere done xylocaine used for local anesthesia Cysto shows normal ureteral orifices low residual urine of about 10 cc no trabeculations tumors or foreign bodies dome was inspected the scope was withdrawn the patient is covered with a single dose of Bactrim. We plan nephrology consultation to prevent stones we should see her annually. We will try to get anultrasound on her in route to getting a CT scan to check out her kidney stones documented in this encounter Plan of Treatment Upcoming Encounters Date Type Department Care Team (Late st Contact Info) Description 02/16/2025 10:00 AM CDT Office Visit [facility] - Hematology Oncology [address] [address] David Munoz MD [address] [place] [address] Scheduled Orders Name Type Priority Associated Diagnoses Order Schedule CYSTOURETHROSCOPY Procedures Routine Recurrent cystitis Ordered: 07/05/2023 POCT UA AUTOMATED W/O MICRO Point of Care Testing (manual) Routine Recurrent cystitis 12 Occurrences starting 07/12/2023 until 07/12/2024, 1 completed Scheduled Referrals Name Type Priority Associated Diagnoses Order Schedule EXTERNAL NEPHROLOGY REFERRAL Outpatient Referral Routine History of kidney stones Expected: 07/12/2023, Expires: 07/12/2024 documented as of this encounter Procedures Procedure Name Priority Date/Time Associated Diagnosis Comments PATHOLOGY SURGICAL Routine 07/12/2023 10 :00 AM CDT History of kidney stones POCT UA AUTOMATED W/O MICRO Routine 07/12/2023 9:45 AM CDT Recurrent cystitis documented in this encounter Results * PATHOLOGY SURGICAL (07/12/2023 10:00 AM CDT) Case Report Surgical Pathology Report ? Case: [id number] ? Authorizing Provider: ??Anais Muller III, MD ?? Collected: ? 07/12/2023 10:00 AM ? Ordering Location: ? [facility] ??Received: ?07/12/2023 10:05 AM ? GROUP UROLOGY ? Pathologist: ? Cinthya Lemus MD PhD ? Specimen: ?Stone, kidney ? 07/14/2023 9:05 AM CDT [facility] FINAL DIAGNOSIS Calculus, renal, removal: - Nephrolithiasis (gross examination only). 07/14/2023 9:05 AM CDT [facility] Gross Description A. kidney Specimen presents in a single dry container for gross examination only, labeled with the patient's name, Ibeth Mera, and designated kidney stone. The specimen consists of a baggy together with three dark yellow calculi measuring 0.1 to 0.2 cm in greatest dimension. All submitted to a reference laboratory for crystallographic examination. KS/sb 07/14/2023 9:05 AM CDT [facility] Microscopic Description Microscopic examination was performed which supports the final diagnosis. All control tissues stained appropriately. 07/14/2023 9:05 AM CDT [facility] Other STONE - BODY MATERIAL / Unknown Non-Phlebotomy Collection / Unknown 07/12/2023 10:00 AM CDT 07/12/2023 10:05 AM CDT us Anais Muller III, MD PATHOLOGY/CYTOLOGY ORDER RODRÍGUEZ Final Result [facility] [address] [place] [address] * (ABNORMAL) POCT UA AUTOMATED W/O MICRO (07/12/2023 9:45 AM CDT) POC UA SPECIFIC GRAVITY 1.010 URINE PH 7.0 5.0 - 9.0 POC URINE LEUKOCYTES 75 /uL(A) Negative Kerri/uL POC URINE NITRITE Negative Negative POC URINE PROTEIN Negative Negative mg/dL POC URINE GLUCOSE Negative Negative, Norm mg/dL POC URINE KETONE Negative Negative mg/dL POC URINE UROBILINOGEN Norm Norm, 0.2 E.U./dL (mg/dL), 1 E.U./dL (mg/dL) POC URINE BILIRUBIN Negative Negative mg/dL POC URINE BLOOD INSTRUMENT 50 Saurabh/uL(A) Negative Saurabh/uL POC URINE COLOR Yellow POC URINE CLARITY Clear Urine 07/12/2023 9:45 AM CDT Anais Muller III, MD POINT OF CARE TESTING (M ANUAL) Final Result documented in this encounter Visit Diagnoses Diagnosis History of kidney stones- Primary Personal history of urinary calculi Recurrent cystitis Cystitis, unspecified Bilateral renal stones Urinary hesitancy documented in this encounter Administered Medications Inactive Administered Medications - up to 3 most recent administrations Medication Order MAR Action Action Date Dose Rate Site lidocaine Urethral/Mucosal (GLYDO) 2 % prefilled syringe for urethral catheter insertion PRSY 6 mL 6 mL, Transurethral, ONCE, 1 dose, On Wed07/12/23 at 1030Indications:Recurrent cystitis Given by Other 07/12/2023 10:01 AM CDT 6 mL sulfamethoxazole-trimethoprim DS (BACTRIM DS, SEPTRA DS) 800-160 MG per tablet 1 Tablet 1 Tablet, Oral, ONCE, 1 dose, On Wed07/12/23 at 1030, Dose based on trimethoprim component, Indications: Prevention of Bacterial InfectionIndications:Preventi on of Bacterial Infection Given 07/12/2023 10:02 AM CDT 1 Tablet documented in this encounter Care Teams Speech And Hearing Director Relationship Specialty Start Date End Date Melissa Melgar MD [address] [place] [address] PCP - General Internal Medicine 06/07/23 Anais Muller III, MD [address] [place] [address] Consulting Physician Urology 06/07/23 documented as of this encounter
--- OUTSIDE RECORDS SUMMARY | 2024-10-13 01:31 | XMS_ITS | Encounter Summary ---
Author Organization [facility] Care Team Providers Care Mechanical Product Design Engineer Name Role Phone Erick Ann MD Primary Care Provider [phone] Renzo MARIE MD, Anais Unavailable [phone] Encounter Details Date Type Department Care Team (Latest Contact Info) Description 08/10/2023 Travel Social History Tobacco Use Types Packs/Day [...] AM CDT documented as of this encounter Plan of Treatment Upcoming Encounters Date Type Department Care Team (Late st Contact Info) Description 02/16/2025 10:00 AM CDT Office Visit [facility] - Hematology Oncology - [place] [address] [place] [address] David Munoz MD [address] [place] [address] documented as of this encounter Visit Diagnoses Not on filedocumented in this encounter Care Teams Mechanical Product Design Engineer Relationship Specialty Start Date End Date Erick Ann MD [address] [place] [address] PCP - General Internal Medicine 06/07/23 Anais Muller III, MD [address] [place] [address] Consulting Physician Urology 06/07/23 documented as of this encounter
--- OUTSIDE RECORDS SUMMARY | 2024-10-13 01:31 | XMS_ITS | Encounter Summary ---
Author Organization [facility] Care Team Providers Care Catholic Priest Name Role Phone Erick Ann MD Primary Care Provider [phone] Renzo MARIE MD, Anais Unavailable [phone] Encounter Details Date Type Department Care Team (Latest Contact Info) Description 07/12/2023 Travel Social History Tobacco Use Types Packs/Day [...] Description 02/16/2025 10:00 AM CDT Office Visit [facility] - Hematology Oncology - [place] [address] [place] [address] David Munoz MD [address] [place] [address] documented as of this encounter Visit Diagnoses Not on filedocumented in this encounter Care Teams Catholic Priest Relationship Specialty Start Date End Date Erick Ann MD [address] [place] [address] PCP - General Internal Medicine 06/07/23 nAais Muller III, MD [address] [place] [address] Consulting Physician Urology 06/07/23 documented as of this encounter
--- OUTSIDE RECORDS SUMMARY | 2024-10-13 01:31 | XMS_ITS | Encounter Summary ---
Author Organization [facility] Address [address] [facility] [place] [address] Phone Care Team Providers Care Hoop Machine Operator Name Role Phone Erick Ann MD Primary Care Provider [phone] Renzo MARIE MD, Anais Unavailable [phone] Reason for Visit * Reason Onset Date Comments Referral 09/18/2024 Encounter Details Date Type Department Care Team (Late st Contact Info) Description 09/18/2024 Telephone [facility] [address] [place] [address] David Munoz MD [address] [place] [address] Referral Social History Tobacco Use Types Packs/Day [...] encounter Miscellaneous Notes * Telephone Encounter - Mima Acosta R - 09/18/2024 2:51 PM CST SITUATION: Insurance / Payor requesting provider review Rheumatology Referral. BACKGROUND: Referral unable to be processed. ASSESSMENT: Request for provider review due to the following reason(s): Unsiged notes RECOMMENDATION: Based on the above information the provider has the following option(s): Please sign office visit dated 08/18/2024 to process referral. Mima Acosta [facility] - Referrals opt 7 E CONTROL SUPERVISOR documented in this encounter Plan of Treatment Upcoming Encounters Date Type Department Care Team (Late st Contact Info) Description 02/16/2025 10:00 AM CDT Office Visit [facility] - Hematology Oncology - [place] [address] [place] [address] David Munoz MD [address] [place] [address] documented as of this encounter Visit Diagnoses Not on filedocumented in this encounter Care Teams Hoop Machine Operator Relationship Specialty Start Date End Date Erick Ann MD [address] [place] [address] PCP - General Internal Medicine 06/07/23 Anais Muller III, MD [address] [place] [address] Consulting Physician Urology 06/07/23 documented as of this encounter
--- OUTSIDE RECORDS SUMMARY | 2024-10-13 01:31 | XMS_ITS | Encounter Summary ---
Author Organization [facility] Address [address] [facility] [place] [address] Phone Care Team Providers Care Merchandise Handler Name Role Phone Erick Ann MD Primary Care Provider [phone] Renzo MARIE MD, Anais Unavailable [phone] Reason for Visit * Reason Onset Date Comments Referral 09/12/2024 Encounter Details Date Type Department Care Team (Late st Contact Info) Description 09/12/2024 Telephone [facility] [address] [place] [address] David Munoz MD [address] [place] [address] Referral Social History Tobacco Use Types Packs/Day [...] Telephone Encounter - Mima Acosta R - 09/12/2024 8:43 AM CST SITUATION: Insurance / Payor requesting provider review Rheumatology Referral. BACKGROUND: Referral unable to be processed. ASSESSMENT: Request for provider review due to the following reason(s): Unsiged notes RECOMMENDATION: Based on the above information the provider has the following option(s): Please sign office visit dated 08/18/2024 to process referral. Mima Acosta [facility] - Referrals opt 7 CTOR GENERAL documented in this encounter Plan of Treatment Upcoming Encounters Date Type Department Care Team (Late st Contact Info) Description 02/16/2025 10:00 AM CDT Office Visit [facility] - Hematology Oncology - [place] [address] [place] [address] David Munoz MD [address] [place] [address] documented as of this encounter Visit Diagnoses Not on filedocumented in this encounter Care Teams Merchandise Handler Relationship Specialty Start Date End Date Erick Ann MD [address] [place] [address] PCP - General Internal Medicine 06/07/23 Anais Muller III, MD [address] [place] [address] Consulting Physician Urology 06/07/23 documented as of this encounter
--- OUTSIDE RECORDS SUMMARY | 2024-10-13 01:32 | XMS_ITS | Encounter Summary ---
Author Organization [facility] Address [address] [facility] [place] [address] Phone Care Team Providers Care General Inspector Name Role Phone Melissa Melgar MD Primary Care Provider [phone] Renzo MARIE MD, Anais Vogel [phone] Reason for Referral * Radiology Services (Routine) - Closed Specialty Diagnoses / Procedures Referred By Bisi miguel Referred To Contact Radiology Diagnoses Bilateral renal stones Procedures XR ABDOMEN KUB FLAT PLATE Anais Muller III, MD [address] [place] [address] Phone: tel: fax: Referral ID Status Reason Start Date Expiration Date Visits Re quested Visits Authorized [id number] Closed 06/07/2023 1 1 * Radiology Services (Routine) - Closed Specialty Diagnoses / Procedures [facility] Referred To Contact Radiology Diagnoses Bilateral renal stones Procedures CT RENAL STONE STUDY (ABDOMEN AND PELVIS W/O CONTRAST) Anais Muller III, MD [address] [facility] [place] [address] Phone: tel: fax: Referral ID Status Reason Start Date Expiration Date Visits Re quested Visits Authorized [id number] Closed 06/07/2023 1 1 Reason for Visit * Reason Comments Kidney Stone New pt * Consult, Test & Initiate Treatment (Routine) - Closed Specialty Diagnoses / Procedures Referred By Bisi miguel Referred To Contact Urology Diagnoses Calculus of kidney Melissa Melgar MD [address] [place] [address] Phone: tel: fax: [facility] [address] [place] [address] Phone: tel: fax: Referral ID Status Reason Start Date Expiration Date Visits Re quested Visits Authorized [id number] Closed 1 1 Encounter Details Date Type Department Care Team (Late st Contact Info) Description 06/07/2023 10:00 AM CDT Office Visit [facility] [address] [place] [address] Anais Muller III, MD [address] [place] [address] Bilateral renal stones (Primary Dx); Recurrent cystitis; History of kidney stones; E coli infection; Urinary hesitancy Discharge Disposition: Discharged to home or Selfcare Social History Tobacco Use Types Packs/Day Years Used Date Smoking Tobacco: Some Days Cigarettes Smokeless Tobacco: Never Tobacco Cessation:Ready to Q uit: Not Asked; Counseling Given: No Alcohol Use Standard Drinks/Week Comments Never 0 [...] suspected to have Coronavirus/COVID-19? No / Unsure 06/07/2023 9:49 AM CDT documented as of this encounter Last Filed Vital Signs Vital Sign Reading Time Taken Comments Blood Pressure 90/70 06/07/2023 10:10 AM CDT Pulse 74 06/07/2023 10:10 AM CDT Temperature 36.7 ??C (98 ??F) 06/07/2023 10:10 AM CDT Respiratory Rate 19 06/07/2023 10:10 AM CDT Oxygen Saturation 98% 06/07/2023 10:10 AM CDT Inhaled Oxygen Concentration - - Weight 55.3 kg (122 lb) 06/07/2023 10:10 AM CDT Height 170.2 cm (5' 7 ) 06/07/2023 10:10 AM CDT Body Mass Index 19.11 06/07/2023 10:10 AM CDT documented in this encounter Progress Notes * Anais Muller III, MD - 06/07/2023 10:00 AM CDT UROLOGY [facility] [address] [facility], [address] [place] [address] PHONE: FAX: Assessment & Plan Has several troubles we will address today: She has a history of passing small ureteral stones. We have no films here at [facility] but we were forwarded a CT scan from October of 2022 showing bilateral small stones size of which were not given. At that Time she had a 3 mm right mid ureteral stone as wellwhich I presume she passed. She is reported to have frequent urinary tract infections and we have sterile urine cultures from July 02 and October of 2022. But then an E coli infection was identified in January of 2023 and inMay 2022. The 45 pages of forwarded Records do not say how those were treated. There are no other records in [facility] at [facility]. She is also apparently troubled by a slow stream. The last urinalysis forwarded to us showed a contaminated urine with more epithelial cells then either white cells or red cells. Subjective: 06/07/2023 HPI: HPI: Ibeth Mera presents with a chief complaint of renal stones and urinary tract infections. The following portions of the patient's chart were reviewed in this encounter and updated as appropriate: Tobacco Allergies Meds Med Hx Surg Hx Fam Hx Soc Hx ROS: Review of systems was negative, except as documented in HPI. Current Outpatient Medications Medication Sig Dispense Refill ??? buPROPion (WELLBUTRIN) 150 MG XL tablet ??? Cyanocobalamin (VITAMIN B12 PO) Take by mouth. ??? escitalopram (LEXAPRO) 20 MG Tablet Take 20 mg by mouth daily. (Patient not taking: Reported on06/07/2023) ??? MAGNESIUM CITRATE PO Take 500 mg by mouth. ??? nitrofurantoin, macrocrystal-monohydrate, (MACROBID) 100 MG Capsule Take 1 Capsule by mouth 2 times daily for 5 days. Take this when an infection starts 10 Capsule 3 ??? [place]-3 Fatty Acids (OMEGA 3 PO) Take by [...] Reactions ??? Corticosteroids Unknown ??? Neomycin Unknown History reviewed. No pertinent past medical history. Social History Socioeconomic History ??? Marital status: [...] surgical history on file. Objective: VITALS: BP 90/70 Pulse 74 Temp 98 ??F (36.7 ??C) (Temporal) Resp 19 Ht 5' 7 (1.702 m) Wt122 lb (55.3 kg) SpO2 98% BMI 19.11 kg/m?? PHYSICAL EXAM: GENERAL: Normal [...] CALCIUM, TBIL, SGOTAST, SGPTALT, ALKALINEPHO, GFRNA, GFRA No results found for this or any previous visit. No results found for: TESTOSTTTL No results found for this or any previous visit from the past 365 days. No results found for this or any previous visit from the past 365 days. No results found for this or any previous visit from the past 365 days. We should reimage her. We will need to check a current urine culture and see that she is emptying well. A formal metabolic stone evaluation to determine why she is making stones particularly with supplemental vitamin-D will be important. Have a portrait photographer in [place] that we use and I can also seeif Dr. Esvin Schmitt who is at [facility] might be able to help us with this woman's stone evaluation We can also offer a cystoscopy to see if there is any explanation for slow stream Ibeth was seen today for kidney stone. Diagnoses and all orders for this visit: Bilateral renal stones - CT RENAL STONE STUDY (ABDOMEN AND PELVIS W/O CONTRAST); Future - XR ABDOMEN KUB FLAT PLATE; Future Recurrent cystitis - CULTURE, URINE - BAMBI,POST-VOID RES,US,NON-IMAGING - POCT UA AUTOMATED W/O MICRO; Standing - POCT UA AUTOMATED W/O MICRO History of kidney stones - POCT UA AUTOMATED W/O MICRO; Standing - POCT UA AUTOMATED W/O MICRO E coli infection Urinary hesitancy Other orders - nitrofurantoin, macrocrystal-monohydrate, (MACROBID) 100 MG Capsule; Take 1 Capsule by mouth 2 times daily for 5 days. Take this when an infection starts Arrange for cystoscopy when all the films are done. She will need the address and numbers for Dr. Esvin Schmitt in for Dr. Duncan in [place] if her insurance is accepted there. We also have several nephrologists in [place] that can help By: Anais Muller III, MD, 06/07/2023, 10:42 AM CDT Primary Care Physician: MELISSA MELGAR MD documented in this encounter Procedure Notes * Ben Nathan RMA - 06/07/2023 10:00 AM CDTAssociated Order(s): BAMBI,POST- VOID RES,US,NON-IMAGING Procedure(s): BAMBI,POST-VOID RES,US,NON-IMAGING POCT Bladder Scan collected per standing order of dr muller on 06/07/2023 PVR= 9 ML documented in this encounter Plan of Treatment Upcoming Encounters Date Type Department Care Team (Late st Contact Info) Description 02/16/2025 10:00 AM CDT Office Visit [facility] - Hematology Oncology [facility] [address] [place] [id number] David Munoz MD [address] [place] [address] Scheduled Orders Name Type Priority Associated Diagnoses Orde r Schedule CT RENAL STONE STUDY (ABDOMEN AND PELVIS W/O CONTRAST) Imaging Routine Bilateral renal stones Expected: 06/07/2023, Expires: 10/07/2023 POCT UA AUTOMATED W/O MICRO Point of Care Testing (manual) Routine Recurrent cystitis History of kidney stones 12 Occurrences starting 06/07/2023 until 06/07/2024, 1 completed documented as of this encounter Procedures Procedure Name Priority Date/Time Associated Diagnosis Comments CULTURE, URINE Routine 06/07/2023 10:45 AM CDT Recurrent cystitis POCT UA AUTOMATED W/O MICRO Routine 06/07/2023 10:16 AM CDT Recurrent cystitis History of kidney stones BAMBI,POST-VOID RES,US,NON-IMAGING Routine 06/07/2023 10:00 AM CDT Recurrent cystitis documented in this encounter Results * XR [...] AM T: ??08/11/2023 8:08 AM Report ID: [id number] Reading Location: ??[id number] Procedure Note Bernabe Santiago MD - 08/11/2023 [...] 8:08 AM - Electronically signed by Bernabe Corrigan.D. LB: KARLEE Report ID: [id number] Reading Location: [id number] IMPRESSION: Bilateral nephrolithiasis. Anais Muller III, MD IMG DIAGNOSTIC ORDERABLE S Final Result * CULTURE, URINE (06/07/2023 10:45 AM CDT) Pathologist [facility] CULTURE RESULTS NO GROWTH WITHIN 1 DAY 06/08/2023 7:[address] [facility] Culture URINE SPECIMEN COLLECTION, CLEAN CATCH / Unknown Non-Phlebotomy Collection / Unknown 06/07/2023 10:45 AM CDT 06/07/2023 10:45 AM CDT Anais Muller III, MD MICROBIOLOGY - GENERAL O RDERABLES Final Result Performing Organization Address City/State/[facility] Co de Phone Number [facility] [address] [place] [address], * (ABNORMAL) POCT UA AUTOMATED W/O MICRO (06/07/2023 10:16 AM CDT) [facility] POC UA SPECIFIC GRAVITY 1.020 URINE PH 5.0 5.0 - 9.0 POC URINE LEUKOCYTES Negative Negative Kerri/uL POC URINE NITRITE Negative Negative POC URINE PROTEIN Negative Negative mg/dL POC URINE GLUCOSE Negative Negative, Norm mg/dL POC URINE KETONE Negative Negative mg/dL POC URINE UROBILINOGEN Norm Norm, 0.2 E.U./dL (mg/dL), 1 E.U./dL (mg/dL) POC URINE BILIRUBIN Negative Negative mg/dL POC URINE BLOOD INSTRUMENT 50 Saurabh/uL(A) Negative Saurabh/uL POC URINE COLOR Yellow POC URINE CLARITY Clear Urine 06/07/2023 10:1 6 AM CDT Anais Muller III, MD POINT OF CARE TESTING (M ANUAL) Final Result * BAMBI,POST-VOID RES,US,NON-IMAGING (06/07/2023 10:00 AM CDT) Narrative Ben Nathan RMA - 06/07/2023 10:00 AM CDT Ben Nathan RMA ? 06/07/2023 10:46 AM POCT Bladder Scan collected per standing order of dr muller on 06/07/2023 PVR= 9 ML Anais Muller III, MD [place] - SURGERY Final Re sult documented in this encounter Visit Diagnoses Diagnosis Bilateral renal stones- Primary Recurrent cystitis Cystitis, unspecified History of kidney stones Personal history of urinary calculi E coli infection Other and unspecified Escherichia coli (E. coli) Urinary hesitancy Bilateral renal stones documented in this encounter Care Teams General Inspector Relationship Specialty Start Date End Date Melissa Melgar MD [address] [place] [address] PCP - General Internal Medicine 06/07/23 Anais Muller III, MD [address] [place] [address] Consulting Physician Urology 06/07/23 documented as of this encounter
--- OUTSIDE RECORDS SUMMARY | 2024-10-13 01:32 | XMS_ITS | Encounter Summary ---
Author Organization [facility] Address [address] [place] [address] Phone Care Team Providers Care Public Policy Mediator Name Role Phone Erick Ann MD Primary Care Provider [phone] Renzo MARIE MD, Elliott Vogel [phone] Reason for Referral * Radiology Services (Routine) - Closed Specialty Diagnoses / Procedures Referred By Contac t Referred To Contact Radiology Diagnoses Nephrolithiasis Procedures US RENAL COMPLETE Elliott Muller III, MD [address] [place] [address] Phone: tel: fax: Referral ID Status Reason Start Date Expiration Date Visits Re quested Visits Authorized [id number] Closed 07/02/2023 1 1 Reason for Visit * Reason Onset Date Comments Prior Authorization 06/11/2023 Encounter Details Date Type Department Care Team (Late st Contact Info) Description 06/11/2023 Telephone [facility] Outpatient [address] [place] [address] Elliott Muller III, MD [address] [place] [address] Prior Authorization Social History Tobacco Use Types Packs/Day Years [...] AM CDT documented as of this encounter Miscellaneous Notes * Telephone Encounter - Yesenia Tripp - 07/05/2023 9:57 AM CDT Left message for pt to call back. * Telephone Encounter - Yesenia Tripp - 07/02/2023 9:55 AM CDT Left message for pt to call back. * Telephone Encounter - Elliott Muller III, MD - 06/17/2023 5:31 AM CDT OK to get u/s and we can see if that shows hydro. U/s is not good for detecting stones but costs less. We can still order a CT after that * Telephone Encounter - Melony Dominguez RN - 06/15/2023 2:32 PM CDT Insurance is wanting a US done fist. We can order that or do a peer to peer prior to approval/ * Telephone Encounter - Eufemia Kulkarni - 06/11/2023 2:23 PM CDT Peer to Peer review needed for CT renal stone study previously scheduled for 06/12/23. Please call [facility] at [phone] and follow the prompts for p2p. Order ID: [id number] Member Information: RADHA BARRIOS Member #: [id number] Ordering Provider: ELLIOTT MULLER Servicinchan Provider: [address] [place] [address] Non-auth reason: Your doctor told us that you have had kidney stones in the past. Your doctor ordered a CT scan of your abdomen and pelvis to look for kidney stones. A CT is a way to take pictures of the inside of your body. This test should be used when ultrasound results are unclear. We reviewed the notes we have. The notes do not show that you had an ultrasound. Based on the information we have, this test is not medically necessary. We used [employer] Clinical Guideline titled Imaging of the Abdomen and Pelvis to make this decision. You may view this guideline at [email or web address].[email or web address]/gis-bduysprqtf-hxbwydlqg. CT for evaluation of recurrent urinary tract calculi is limited to specific clinical scenarios. documented in this encounter Plan of Treatment Upcoming Encounters Date Type Department Care Team (Late st Contact Info) Description 02/16/2025 10:00 AM CDT Office Visit [facility] - Hematology Oncology [address] [phone] David Munoz MD [address] [place] [address] documented as of this encounter Results * US RENAL COMPLETE [...] AM T: ??07/29/2023 1:13 AM Report ID: [id number] Reading Location: ??[id number] Procedure Note Richie Hidalgo MD - 07/29/2023 [...] Richie Hidalgo M.D. KT: BREEZY Report ID: [id number] Reading Location: [id number] IMPRESSION: Bilateral nephrolithiasis. No hydronephrosis. The bladder was empty for the examination and therefore can not be evaluated. Elliott Muller III, MD IMG US ORDERABLES Final Result documented in this encounter Visit Diagnoses Diagnosis Nephrolithiasis- Primary Calculus of kidney Nephrolithiasis Calculus of kidney documented in this encounter Care Teams Public Policy Mediator Relationship Specialty Start Date End Date Erick Ann MD [address] [place] [address] PCP - General Internal Medicine 06/07/23 Elliott Muller III, MD [address] [place] [address] Consulting Physician Urology 06/07/23 documented as of this encounter
--- OUTSIDE RECORDS SUMMARY | 2024-10-13 01:32 | XMS_ITS | Encounter Summary ---
Author Organization [facility] Care Team Providers Care Chocolate Finisher Operator Name Role Phone Erick Ann MD Primary Care Provider Renzo MARIE MD, Anais Unavailable [phone] Encounter Details Date Type Department Care Team (Latest Contact Info) Description 06/07/2023 Travel Social History Tobacco Use Types Packs/Day [...] Description 02/16/2025 10:00 AM CDT Office Visit [facility] - Hematology Oncology - [place] [address] [place] [address] David Munoz MD [address] [place] [address] documented as of this encounter Visit Diagnoses Not on filedocumented in this encounter Care Teams Chocolate Finisher Operator Relationship Specialty Start Date End Date Erick Ann MD [address] [place] [address] PCP - General Internal Medicine 06/07/23 Anais Muller III, MD [address] [place] [address] Consulting Physician Urology 06/07/23 documented as of this encounter
== END 2024-10-06 10:47 | disposition home or self-care (01) ==
PROVIDERS: Visit Provider Urology
PROC: (CPT 50590; principal; 2024-10-06 08:30)
PROC: (CPT 52352; 2024-10-06 08:30)
DX: N20.0 Calculus of kidney (principal); F12.90 Cannabis use, unspecified, uncomplicated; Z87.891 Personal history of nicotine dependence
CPT/HCPCS: 50590; 74018; A9270; J0690; J1100; J2003; J2250; J2405; J2704; J3010; J7030; J7120

== ENCOUNTER 2024-10-18 07:37 | Outpatient (CLI) | payer OTHER, SELFPAY ==
--- NOTE | ~2024-10-18 | XR_ITS ---
XR abdomen/kub 1V 10/18/2024 08:01 INDICATION: Renal stones TECHNIQUE: KUB COMPARISON: 10/06/2024 FINDINGS: Bowel gas pattern is normal. Moderate retained fecal material throughout the colon. There i s no evidence of free air, mass, organomegaly, ascites or obstruction. There are punctate bilateral r enal stones. Decreased stone burden in the left kidney compared with prior examination. The bones cheryle ear intact. IMPRESSION: 1: Bilateral nephrolithiasis with decreased left renal stone burden compared with 10/06/2024.. Reviewed, dictated and finalized at location B. NICAL CLERK IMPRESSION: 1: Bilateral nephrolithiasis with decreased left renal stone burden compared wi th 10/06/2024..
== END 2024-10-18 07:38 | disposition home or self-care (01) ==
PROVIDERS: Visit Provider Urology
DX: N20.0 Calculus of kidney (principal)
CPT/HCPCS: 74018